=== PATIENT | male | born 1940 | race Caucasian/White ===

== ENCOUNTER → 2019-03-21 | Outpatient (CLI) | payer MEDICARE ==
--- NOTE | 2019-03-21 16:27 | CT ---
EXAMINATION TYPE: CT abdomen pelvis wo con DATE OF EXAM: 03/21/2019 HISTORY: abdominal pain not further specified. CT DLP: 499.1 mGycm. Automated Exposure Control for Dose Reduction was Utilized. TECHNIQUE: CT scan of the abdomen and pelvis is performed without oral or IV contrast. COMPARISON: NONE FINDINGS: Within the limitations of a non-contrast study, the following observations are made. LUNG BASES: Coronary artery calcification is present which is noted marker for underlying coronary ar kaleigh disease.. LIVER/GB: Liver is isodense relative to spleen suggesting mild diffuse fatty infiltration. PANCREAS: No significant abnormality is seen. SPLEEN: No significant abnormality is seen. ADRENALS: No significant abnormality is seen. KIDNEYS: Some cortical thinning in both kidneys. No renal stones or hydronephrosis is present bilater ally BOWEL: No suspicious small or large bowel dilatation. Scattered diverticula throughout the colon most prominent in the sigmoid colon without CT evidence for acute diverticulitis. Suspect large duodenal diverticulum near second portion of duodenum with prominent air-fluid level in contained air collecti on axial image 51. This can be confirmed with upper GI study. GENITAL ORGANS: Central region calcifications in normal size prostate. LYMPH NODES: No greater than 1cm abdominal or pelvic lymph nodes are appreciated. OSSEOUS STRUCTURES: Moderate to severe disc space narrowing and mild to moderate spurring L3-L4 throu gh the L5-S1 levels most prominent L4-L5 level where there is left-sided endplate sclerosis. Mild-to- moderate axial joint space loss both hips. OTHER: Moderate to severe calcified plaque distal abdominal aorta extending into iliac branch vessels . IMPRESSION: No acute findings seen to come for patient's symptoms. Probable large diverticulum second portion duodenum.
== END | disposition home or self-care (01) ==
LOC: RADCTMAIN 16:01
PROVIDERS: ATTEND Family Medicine
DX: R10.9 Unspecified abdominal pain (principal)
CPT/HCPCS: 74176

== ENCOUNTER → 2019-12-18 | Outpatient (CLI) | payer MEDICARE ==
--- NOTE | 2019-12-19 08:29 | CT ---
EXAMINATION TYPE: CT chest wo con DATE OF EXAM: 12/18/2019 COMPARISON: None HISTORY: cough, SOB CT DLP: 396.[address] of the chest was performed with lung and mediastinal window settings submitted. The la ck of contrast limits evaluation of the vascular, mediastinal and parenchymal structures including th e upper abdomen. LUNGS: Large left upper lobe airspace consolidation including involvement of the lingula which may re flect underlying infiltrate. Malignancy is not excluded. Follow-up until resolution is advised follow ing appropriate therapeutic intervention. Narrowing left upper lobe bronchus. There is left-sided ple ural effusion with maximal AP measurement of 3 cm. Right apical parenchymal scarring with focal calci fication. Upper lobe emphysematous changes. 4 mm nodule right lower lobe image 33. 3 mm nodule right upper lobe image 29. Several additional smaller sub-3 mm nodules right lung. MEDIASTINUM/MONA: Thoracic aorta is of normal caliber with limited evaluation given lack of contrast . The heart is not enlarged. No evidence for mediastinal mass. No lymph nodes greater than 1cm. UPPER ABDOMEN: Bilateral adrenal glandular thickening. Adenopathy in the region of the gastrohepatic ligament measuring 1.2 cm. Ill-defined lesions of decreased attenuation scattered throughout the live r felt to reflect metastatic disease. Hypoattenuating lesion left kidney may reflect a cyst. Addition al adenopathy in the region of the grabiel hepatis measuring up to 1 cm. OTHER: Mild left axillary lymph node fullness all measuring less than 1 cm may be reactive in nature. IMPRESSION: 1. Large left upper lobe airspace consolidation including involvement of the lingula which may refle ct underlying infiltrate. Malignancy is not excluded. Follow-up until resolution is advised following appropriate therapeutic intervention. 2. Nonspecific scattered pulmonary nodules. 3. Suspect metastatic disease to the liver. Upper abdominal adenopathy as discussed. Dedicated CT of the abdomen/pelvis is recommended.
== END | disposition home or self-care (01) ==
LOC: RADCTMAIN 14:50
PROVIDERS: ATTEND Family Medicine
DX: J94.8 Other specified pleural conditions (principal); R91.8 Other nonspecific abnormal finding of lung field
CPT/HCPCS: 36415; 71250; 82565; 84520

== ENCOUNTER → 2020-01-12 | Outpatient (CLI) | payer MEDICARE ==
--- NOTE | 2020-01-15 10:44 | PE ---
Nuclear medicine PET/CT HISTORY: Lung mass, initial Patient received 10.2 mCi F-18 intravenously in delayed scanning was performed from the skull base to the mid thighs. Localization and attenuation correction CT scan was performed. Correlation to chest CT 12/18/2019 Chest and neck: There is no evident cervical adenopathy. Left supraclavicular node SUV 2.8. Periphera l left upper lobe ill-defined increased attenuation, groundglass opacification measuring 3.7. There i s a left pleural effusion. Retrocaval pretracheal adenopathy is present. There is associated hypermet abolic uptake, SUV 4.3. Right hilar uptake also present, SUV 3.8, 5.6, left hilar trish uptake presen t, SUV 4.1. Intense uptake present peripherally in the lingula adjacent to the pericardium, SUV 7.6. There are likely postobstructive atelectatic changes. Interstitium is prominent in the left upper lob e and left lower lobe. Right axillary uptake 2.5 SUV, left axillary trish uptake SUV 3.1. Right thyro id nodule SUV 4.1. ABDOMEN: Multiple hyperintensities are scattered within the liver, SUV values 3.726, 7.4 and 12.8, gr eater than 10 lesions present. Bilateral adrenal masses show associated hypermetabolic uptake, SUV 7. 2 on the right, 5.1 there is some retroperitoneal adenopathy present with associated hypermetabolic u ptake. Soft tissue uptake in the posterior aspect of the left kidney also present, exophytic location , SUV 3.1. Bilateral external iliac adenopathy, SUV on the left 7.4, right inguinal uptake SUV 2.2, l eft inguinal uptake 7.2. Osseous structures are remarkable for hypermetabolic uptake posterior left ilium, SUV 13 and more ant eriorly SUV 4.0. IMPRESSION: Metastatic disease.
== END | disposition home or self-care (01) ==
LOC: RADPETMAIN 15:33
PROVIDERS: ATTEND Internal Medicine
DX: C79.9 Secondary malignant neoplasm of unspecified site (principal)
CPT/HCPCS: 78815; A9552

== ENCOUNTER 2020-01-22 12:24 | Inpatient (IN) | payer MEDICARE ==
[2020-01-22] MEDS ORDERED: SODIUM CHLORIDE 0.9% 1,000 ML IV STA ×2 (13:04→14:25)
[2020-01-22] MEDS ORDERED: SODIUM CHLORIDE 0.9% 500 ML 500 ML IV STA (13:04)
[2020-01-22 13:24] LABS: Basophils % (A) 0 %; Eosinophils # (A) 0.2 k/uL (0-0.7); Eosinophils % (A) 2 %; Lymphocytes # (A) 1.5 k/uL (1.0-4.8); Lymphocytes % (A) 11 %; MCHC 32.6 g/dL (31.0-37.0); MCV 88.8 fL (80.0-100.0); Mean Platelet Volume 7.8; Monocytes # (A) 0.9 k/uL (0-1.0); Monocytes % (A) 7 %; Neutrophils # (A) 10.6 k/uL (1.3-7.7); Neutrophils % (A) 78 %; Platelet Count 304 k/uL (150-450); RBC 4.84 m/uL (4.30-5.90); RDW 12.6 % (11.5-15.5); WBC 13.6 k/uL (3.8-10.6)
[2020-01-22 13:28] LABS: Partial Thromboplastin Time 24.9 sec (22.0-30.0); Prothrombin Time 10.4 sec (9.0-12.0)
[2020-01-22 13:33] LABS: Albumin 3.7 g/dL (3.5-5.0); Calcium 10.3 mg/dL (8.4-10.2); Magnesium 2.4 mg/dL (1.6-2.3); Total Bilirubin 0.8 mg/dL (0.2-1.3); Total Protein 6.7 g/dL (6.3-8.2)
--- NOTE | 2020-01-22 13:35 | XR ---
EXAMINATION TYPE: XR chest 2V DATE OF EXAM: 01/22/2020 COMPARISON: 09/10/2015 INDICATION: Difficulty in breathing TECHNIQUE: Frontal and lateral views of the chest are obtained. FINDINGS: The heart size is normal. The pulmonary vasculature is normal. Left lower lobe consolidation is present. Correlate for pneumonia. Very minimal increased lung markin gs are at the right lower lung field. IMPRESSION: 1. Left lower lobe infiltrate. Correlate for pneumonia. Follow-up is recommended.
[2020-01-22 13:49] LABS: Potassium 6.2 mmol/L (3.5-5.1)
--- NOTE | 2020-01-22 13:53 | ED ---
SOB HPI - General Chief Complaint: Shortness of Breath Stated Complaint: pneumonia Time Seen by Provider: 01/22/20 12:54 Source: patient, family, RN notes reviewed Mode of arrival: wheelchair Limitations: no limitations - History of Present Illness Initial Comments: This is a 79-year-old male was brought in by his family for complaints of shortness of breath decreased appetite weakness, past 4-5 days not been taking his medication for over a week no overt fevers chills sweats or other symptoms no chest pain reported. Family states is not thriving well MD Complaint: shortness of breath - Related Data Home Medications Medication Instructions Recorded Confirmed Aspirin 325 mg PO HS 01/16/20 01/22/20 Atorvastatin [Lipitor] 20 mg PO HS 01/16/20 01/22/20 Cholecalciferol [Vitamin D3 (25 1,000 unit PO HS 01/16/20 01/22/20 Mcg = 1000 Iu)] Fenofibrate Nanocrystallized 160 mg PO DAILY 01/16/20 01/22/20 [Tricor] Finasteride [Proscar] 5 mg PO DAILY 01/16/20 01/22/20 Lisinopril-Hctz 20-12.5 mg 1 tab PO QAM 01/16/20 01/22/20 [Zestoretic 20-12.5] Magnesium 250 mg PO HS 01/16/20 01/22/20 Melatonin 5 mg PO HS 01/16/20 01/22/20 amLODIPine [Norvasc] 5 mg PO QAM 01/16/20 01/22/20 Dorzolamide HCl/Pf [Dorzolamide 2% 1 drop LEFT EYE BID 01/21/20 01/22/20 Eye Drop] Ibuprofen/Diphenhydramine HCl 1 cap PO HS 01/21/20 01/22/20 [Advil Pm Liqui-Gels] Brimonidine Tartrate [Alphagan P 1 drops LEFT EYE BID 01/22/20 01/22/20 0.2% Ophth Soln] Latanoprost [Xalatan 0.005%] 1 drop LEFT EYE HS 01/22/20 01/22/20 Multivitamins, Thera [Multivitamin 1 tab PO DAILY 01/22/20 01/22/20 (formulary)] Allergies Allergy/AdvReac Type Severity Reaction Status Date / Time No Known Allergies Allergy Verified 01/22/20 14:24 Review of Systems ROS Statement: Those systems with pertinent positive or pertinent negative responses have been documented in the HPI. ROS Other: All systems not noted in ROS Statement are negative. Past Medical History Past Medical History: Cancer, COPD, Eye Disorder, Hyperlipidemia, Liver Disease, Pneumonia Additional Past Medical History / Comment(s): bladder CA 2010, liver mass and lung nodule History of Any Multi-Drug Resistant Organisms: None Reported Past Surgical History: No Surgical Hx Reported Smoking Status: Former smoker Past Alcohol Use History: None Reported Past Drug Use History: None Reported General Exam - General Exam Comments Initial Comments: This is a well-developed sec appearing male who is awake alert though somewhat lethargic Limitations: no limitations General appearance: alert, in no apparent distress Head exam: Present: atraumatic, normocephalic, normal inspection Eye exam: Present: normal appearance, PERRL, EOMI. Absent: scleral icterus, conjunctival injection, periorbital swelling ENT exam: Present: mucous membranes dry Neck exam: Present: normal inspection. Absent: tenderness, meningismus, lymphadenopathy Respiratory exam: Present: normal lung sounds bilaterally. Absent: respiratory distress, wheezes, rales, rhonchi, stridor Cardiovascular Exam: Present: regular rate, normal rhythm, normal heart sounds. Absent: systolic murmur, diastolic murmur, rubs, gallop, clicks GI/Abdominal exam: Present: soft, normal bowel sounds. Absent: distended, tenderness, guarding, rebound, rigid Extremities exam: Present: normal inspection, full ROM, normal capillary refill. Absent: tenderness, pedal edema, joint swelling, calf tenderness Back exam: Present: normal inspection Neurological exam: Present: alert, oriented X3, CN II-XII intact Psychiatric exam: Present: normal affect, normal mood Skin exam: Present: warm, dry, intact, normal color. Absent: rash Course Vital Signs 01/22/20 01/22/20 01/22/20 12:26 13:11 13:28 Temperature 97.4 F L Pulse Rate 97 94 Respiratory 16 16 16 Rate Blood Pressure 85/59 93/62 O2 Sat by Pulse 93 L 98 Oximetry 01/22/20 01/22/20 13:53 14:28 Temperature Pulse Rate 86 98 Respiratory 16 16 Rate Blood Pressure 101/61 115/74 O2 Sat by Pulse 99 95 Oximetry Medical Decision Making - Medical Decision Making Patient does demonstrate evidence of dehydration acute kidney injury dehydration left lower lobe pneumonia as well as hyperkalemia patient will be admitted for treatment of the above I did discuss the case with Dr. Cunningham additionally COPD is present - Lab Data Result diagrams: 01/22/20 12:53 01/22/20 12:53 Lab Results 01/22/20 01/22/20 01/22/20 Range/Units 12:53 12:53 12:53 WBC 13.6 H (3.8-10.6) k/uL RBC 4.84 (4.30-5.90) m/uL Hgb 14.0 (13.0-17.5) gm/dL Hct 43.0 (39.0-53.0) % MCV 88.8 (80.0-100.0) fL MCH 29.0 (25.0-35.0) pg MCHC 32.6 (31.0-37.0) g/dL RDW 12.6 (11.5-15.5) % Plt Count 304 (150-450) k/uL Neutrophils % 78 % Lymphocytes % 11 % Monocytes % 7 % Eosinophils % 2 % Basophils % 0 % Neutrophils # 10.6 H (1.3-7.7) k/uL Lymphocytes # 1.5 (1.0-4.8) k/uL Monocytes # 0.9 (0-1.0) k/uL Eosinophils # 0.2 (0-0.7) k/uL Basophils # 0.0 (0-0.2) k/uL PT 10.4 (9.0-12.0) sec INR 1.0 (<1.2) APTT 24.9 (22.0-30.0) sec Sodium 134 L (137-145) mmol/L Potassium 6.2 H* (3.5-5.1) mmol/L Chloride 101 (98-107) mmol/L Carbon Dioxide 22 (22-30) mmol/L Anion Gap 11 mmol/L BUN 84 H (9-20) mg/dL Creatinine 4.53 H (0.66-1.25) mg/dL Est GFR (CKD-EPI)AfAm 13 (>60 ml/min/1.73 sqM) Est GFR (CKD-EPI)NonAf 12 (>60 ml/min/1.73 sqM) Glucose 99 (74-99) mg/dL Plasma Lactic Acid Romeo (0.7-2.0) mmol/L Calcium 10.3 H (8.4-10.2) mg/dL Magnesium 2.4 H (1.6-2.3) mg/dL Total Bilirubin 0.8 (0.2-1.3) mg/dL AST 65 H (17-59) U/L ALT 27 (4-49) U/L Alkaline Phosphatase 134 H (38-126) U/L Troponin I (0.000-0.034) ng/mL NT-Pro-B Natriuret Pep pg/mL Total Protein 6.7 (6.3-8.2) g/dL Albumin 3.7 (3.5-5.0) g/dL 01/22/20 01/22/20 01/22/20 Range/Units 12:53 12:53 12:53 WBC (3.8-10.6) k/uL RBC (4.30-5.90) m/uL Hgb (13.0-17.5) gm/dL Hct (39.0-53.0) % MCV (80.0-100.0) fL MCH (25.0-35.0) pg MCHC (31.0-37.0) g/dL RDW (11.5-15.5) % Plt Count (150-450) k/uL Neutrophils % % Lymphocytes % % Monocytes % % Eosinophils % % Basophils % % Neutrophils # (1.3-7.7) k/uL Lymphocytes # (1.0-4.8) k/uL Monocytes # (0-1.0) k/uL Eosinophils # (0-0.7) k/uL Basophils # (0-0.2) k/uL PT (9.0-12.0) sec INR (<1.2) APTT (22.0-30.0) sec Sodium (137-145) mmol/L Potassium (3.5-5.1) mmol/L Chloride (98-107) mmol/L Carbon Dioxide (22-30) mmol/L Anion Gap mmol/L BUN (9-20) mg/dL Creatinine (0.66-1.25) mg/dL Est GFR (CKD-EPI)AfAm (>60 ml/min/1.73 sqM) Est GFR (CKD-EPI)NonAf (>60 ml/min/1.73 sqM) Glucose (74-99) mg/dL Plasma Lactic Acid Romeo 1.4 (0.7-2.0) mmol/L Calcium (8.4-10.2) mg/dL Magnesium (1.6-2.3) mg/dL Total Bilirubin (0.2-1.3) mg/dL AST (17-59) U/L ALT (4-49) U/L Alkaline Phosphatase (38-126) U/L Troponin I 0.013 (0.000-0.034) ng/mL NT-Pro-B Natriuret Pep 138 pg/mL Total Protein (6.3-8.2) g/dL Albumin (3.5-5.0) g/dL - EKG Data -: EKG Interpreted by Me EKG shows normal: sinus rhythm (Sinus rhythm with 95. Interval 172 QRS 86 QT since QTC 326/409 right word axis no acute ST-T wave changes) - Radiology Data Radiology results: report reviewed (I did review the imaging and report shows evidence of a left lower lobe infiltrate.), image reviewed Critical Care Time Critical Care Time: Yes Total Critical Care Time: 35 Critical Care Time: 35 minutes of critical care time which included initial presentation with history physical labs x-rays several reevaluation the patient. Discussed with patient family regarding findings review of old charting was available discussed with the main physician admission orders and documentation of the above. Disposition Clinical Impression: Left lower lobe pneumonia, Acute kidney injury, Dehydration, Hyperkalemia, COPD with exacerbation Disposition: ADMITTED IP TO THIS HOSP Condition: Fair Referrals: Epifanio Watt MD [Primary Care Provider] - 1-2 days
[2020-01-22] MEDS ORDERED: cefTRIAXone IN SWFI 1,000 MG/10 ML SYRINGE IVP STA (15:53)
[2020-01-22] MEDS ORDERED: AZITHROMYCIN 500 MG in SODIUM CHLORIDE 0.9% 250 ML IVPB STA (16:08)
[2020-01-22] MEDS ORDERED: PNEUMONIA PROTOCOL UTILIZED 1 EACH MISC PO PRN (16:08)
[2020-01-22] MEDS: SODIUM CHLORIDE 0.9% 1,000 ML IV SCH (16:37)
[2020-01-22] MEDS ORDERED: IPRATROPIUM-ALBUTEROL 3 ML NEB INHALATION SCH (20:00)
[2020-01-22] MEDS: CHOLECALCIFEROL 1,000 UNIT TAB PO SCH (20:07)
[2020-01-22] MEDS: DORZOLAMIDE HCL 2% DROPS 10 ML BTL LEFT EYE SCH (20:07)
[2020-01-22] MEDS: ATORVASTATIN 20 MG TAB PO SCH (20:07)
[2020-01-22] MEDS: ASPIRIN 325 MG TAB PO SCH (20:07)
[2020-01-22] MEDS: MAGNESIUM OXIDE 400 MG TAB PO SCH (20:07)
[2020-01-22] MEDS: MELATONIN 5 MG TABLET PO SCH (20:07)
[2020-01-22] MEDS: LATANOPROST 0.005% OPHTH DROPS 2.5 ML BTL LEFT EYE SCH (20:07)
[2020-01-22] MEDS: BRIMONIDINE TARTRATE 0.2% DROPS 5 ML BTL LEFT EYE SCH (20:07)
--- NOTE | 2020-01-23 08:35 | XR ---
EXAMINATION TYPE: XR chest 2V DATE OF EXAM: 01/23/2020 COMPARISON: Chest x-ray yesterday. CT chest December 18, 2019. PET CT January 12, 2020. HISTORY: History of metastatic disease with pneumonia progress study. TECHNIQUE: Frontal and lateral views of the chest are obtained. FINDINGS: There is bilateral chronic emphysematous change with persistent elevated left hemidiaphragm along with left mid to lower lung opacity silhouetting left heart border and hemidiaphragm. Some lef t-sided volume loss is redemonstrated. Masslike consolidation along the fissure again seen best on la teral view. Metallic foreign body towards the left axilla redemonstrated less well seen on recent CT. Osseous structures are intact. IMPRESSION: Persistent background chronic emphysematous change with probable small left pleural effu kristie and fairly diffuse left lung edema and/or infiltrates with relative sparing left upper lung angélica g with underlying neoplasm and left-sided volume loss. No significant change from most recent x-ray.
[2020-01-23] MEDS: IPRATROPIUM-ALBUTEROL 3 ML NEB INHALATION SCH ×3 (09:01→20:07)
[2020-01-23] MEDS: FENOFIBRATE 160 MG TAB PO SCH (09:02)
[2020-01-23] MEDS: FINASTERIDE 5 MG TAB PO SCH (09:02)
[2020-01-23] MEDS: amLODIPine 5 MG TAB PO SCH (09:02)
[2020-01-23] MEDS: MULTIVITAMINS, THERA 1 EACH TAB PO SCH (09:02)
[2020-01-23] MEDS: SODIUM CHLORIDE 0.9% 1,000 ML IV SCH ×3 (09:03→19:17)
[2020-01-23] MEDS: DORZOLAMIDE HCL 2% DROPS 10 ML BTL LEFT EYE SCH ×2 (09:05→20:14)
[2020-01-23] MEDS: BRIMONIDINE TARTRATE 0.2% DROPS 5 ML BTL LEFT EYE SCH ×2 (09:05→20:14)
--- NOTE | 2020-01-23 12:18 | CONS ---
CONSULTATION PULMONARY/CRITICAL CARE CONSULTATION: DATE OF SERVICE: 01/23/2020 REASON FOR CONSULTATION: Shortness of breath. This is a patient who is a very poor historian. He is 79. He apparently was brought in by his family for shortness of breath, decreased appetite, weakness, not taking his medications for four to five days prior to coming in to the hospital. The patient apparently did not have any fever, chills, sweats, or other complaints. There was no chest pain. Apparently his major issue is cough and shortness of breath. Again, he is a very poor historian. When I ask him about phlegm production, he really cannot remember if he was coughing up any phlegm or not. He apparently had a chest x-ray, which showed a pretty extensive pneumonia of the left lung base. That is the reason for being admitted. Again, it is very difficult to get any history from him. HOME MEDICATIONS: His home medications apparently include aspirin, Lipitor, vitamin D3, TriCor, Proscar, Zestoretic, magnesium, melatonin, amlodipine, eye drops, ibuprofen, diphenhydramine hydrochloride Liqui-Gels, and multiple vitamins. ALLERGIES: Denied. PAST MEDICAL HISTORY: Includes bladder cancer in 2010, COPD from previous tobacco use, hyperlipidemia, pneumonia, possibly liver mass. PAST SURGICAL HISTORY: Apparently negative. SOCIAL HISTORY: Positive for previous tobacco use. No history of alcohol use or illicit drug use. FAMILY HISTORY: Could not get family history from the patient. REVIEW OF SYSTEMS: Very unreliable. CONSTITUTIONAL: Negative. NEUROLOGIC: Negative. HEENT: Negative. CARDIOVASCULAR: Negative. PULMONARY: Cough and shortness of breath. GI: Negative. : Negative. RHEUMATOLOGIC: Negative. IMMUNOLOGIC: Negative. ENDOCRINOLOGIC: Negative. DERMATOLOGIC: Negative. PHYSICAL EXAMINATION: VITAL SIGNS: Current vital signs are reviewed. Temperature is 97.3, heart rate 88, respiratory rate 19, blood pressure 116/69, saturations are 96% on 3 liters. He appears in no acute distress. He does move very slowly. He does not appear to have any distress. There is no audible wheezing, use of accessory muscles, or conversational dyspnea. Not a good historian though. HEENT: Examination is grossly unremarkable. Nasal O2 noted. NECK: Supple. Full range of motion. No adenopathy or thyromegaly. Neck veins are flat. CARDIOVASCULAR: Reveals regular rhythm and rate. Heart rate 88 beats per minute. S1 and S2 normal. Heart sounds are distant. LUNGS: Reveal a few scattered rhonchi. Breath sounds are mostly clear. No wheezes. Few scattered bibasilar crackles. ABDOMEN: Soft. Bowel sounds are heard. EXTREMITIES: Intact. Minimal edema. SKIN: Without rash. NEUROLOGIC: Difficult to assess. The patient is a very poor historian. LABS: Lab data is reviewed. White count 13.6, hemoglobin 14, hematocrit 43.0, platelet count 304,000. PT, INR, and PTT normal. Sodium 134, potassium 6.2, chloride is 101, CO2 22, BUN and creatine were 84 and 4.53. Calcium 10.3, magnesium 2.4. AST 65, alkaline phosphatase 137. N-terminal proBNP is 138. Troponin is 0.013. Microbiology data is negative or pending. A chest x-ray on January 21, which is the day of admission, shows a left lower lobe infiltrate. A followup chest x-ray done this morning on January 22 shows persistent background chronic emphysematous changes with small left pleural effusion and diffuse left lung edema and/or infiltrate. The chest x-ray is similar to the prior chest x-ray showing left lower lobe pneumonia. Medications are reviewed. From the pulmonary standpoint, he is on Zithromax, and ceftriaxone. This is appropriate for community-acquired pneumonia. He is currently on updrafts, vitamins, and the rest of his usual medications. ASSESSMENT: 1. Left lower lobe pneumonia. 2. Chronic obstructive pulmonary disease, with mild chronic obstructive pulmonary disease exacerbation complicated by left lower lobe pneumonia. 3. Prior history of tobacco use. 4. History of hyperlipidemia. 5. History of hypertension. 6. History of bladder cancer, 2010. 7. Prior history of pneumonia. PLAN: The patient is on appropriate antibiotics including Zithromax and Rocephin. I will start him on DuoNeb q.i.d. and p.r.n. Additional recommendations and suggestions are forthcoming. I do not believe he needs any corticosteroids at this time. We will continue to follow closely. We will make additional recommendations where appropriate. Prognosis is guarded. MMODL / IJN: [id number] /
[2020-01-23 12:45] LABS: Calcium 9.5 mg/dL (8.4-10.2); Potassium 5.6 mmol/L (3.5-5.1)
--- NOTE | 2020-01-23 13:14 | P.HPIM ---
History of Present Illness H&P Date: 01/23/20 Chief Complaint: Short of breath History of presenting complaint: This is a pleasant 79-year-old patient of Dr. gonzalez. Chronic stable medical conditions include hyperlipidemia, bladder cancer. Also recently reported of a liver mass and lung nodule. Patient presented to ER with increasing short of breath. Not eating drinking much. Did not take his medications for about a week. Himself the patient other times not able to give much of a history. Patient is reportedly ex-smoker. Rather lethargic and drowsy but able to answer some questions. No family the bedside. Review of systems: GEN.: Tired EYES: None HEENT: None NECK: None RESPIRATORY: Congested cough CARDIOVASCULAR: None GASTROINTESTINAL: None GENITOURINARY: None MUSCULOSKELETAL: Some joint pains LYMPHATICS: None HEMATOLOGICAL: None PSYCHIATRY: None NEUROLOGICAL: Lethargic Past medical history to include: COPD, hyperlipidemia, bladder cancer 2010, liver mass lung nodule Social history: Lives with his . Does use a cane. Patient is at [facility]. No obvious reported history of smoking or alcohol. Family history: Patient does not remember Physical examination: VITAL SIGNS: 97.4, 97, 16, 85/59, 93% on room air GENERAL: BMI 23.3, laying in bed and lethargic but arousable. EYES: Pupils equal. Conjunctiva normal. HEENT: External appearance of nose and ears normal, oral cavity grossly normal. NECK: JVD unable to assess; masses not palpable. HEART: First and second heart sounds are normal; no edema. LUNGS: Respiratory rate increased, decreased breaths on some crackles. ABDOMEN: Soft, nontender, liver spleen not palpable, no masses palpable. PSYCH: Lethargic but arousable was able to answer some questionsl. NEUROLOGICAL: [Cranial nerves grossly intact; no facial asymmetry, moving all 4 limbs LYMPHATICS: No lymph nodes palpable in the axilla and neck INVESTIGATIONS, reviewed in the clinical context: White count 13.6 hemoglobin 14 platelets 304 potassium 6.2 bun 84 creatinine 4.53 calcium 10.3 Patient's creatinine was 2 on December 18 and 2.6 on December 14 EKG tracing personally reviewed by me-normal sinus rhythm Chest x-ray film personally reviewed by me--shows left upper lobe consolidation and also fluid in the fissure and venous prominence. Assessment: -Left upper lobe lobar pneumonia, suspect gram-negative organism -Acute metabolic encephalopathy from pneumonia -Chronic kidney disease with a baseline creatinine of 2-2.6 that is stage 3/4 -Acute kidney injury likely ATN from pneumonia, patient is also on lisinopril anika lethargic. -Hyperkalemia in the setting of acute renal failure -BPH -Hyperlipidemia -Essential hypertension Plan: Patient is on IV saline. Zestoretic was held. Also placed on IV ceftriaxone and Zithromax. Bronchodilators. Lovenox for DVT prophylaxis. Fall precautions. Expect patient to be in the hospital for at least 2 nights. Follow labs. - Past Medical History Past Medical History: Cancer, COPD, Eye Disorder, Hyperlipidemia, Liver Disease, Pneumonia Additional Past Medical History / Comment(s): bladder CA 2010, liver mass and lung nodule}new in work up History of Any Multi-Drug Resistant Organisms: None Reported Past Surgical History: No Surgical Hx Reported Past Anesthesia/Blood Transfusion Reactions: No Reported Reaction Additional Past Anesthesia/Blood Transfusion Reaction / Comment(s): unknown Past Psychological History: No Psychological Hx Reported Smoking Status: Former smoker Past Alcohol Use History: None Reported Additional Past Alcohol Use History / Comment(s): since age 20 Past Drug Use History: None Reported Medications and Allergies Home Medications Medication Instructions Recorded Confirmed Type Aspirin 325 mg PO HS 01/16/20 01/22/20 History Atorvastatin [Lipitor] 20 mg PO HS 01/16/20 01/22/20 History Cholecalciferol [Vitamin D3 (25 1,000 unit PO HS 01/16/20 01/22/20 History Mcg = 1000 Iu)] Fenofibrate Nanocrystallized 160 mg PO DAILY 01/16/20 01/22/20 History [Tricor] Finasteride [Proscar] 5 mg PO DAILY 01/16/20 01/22/20 History Lisinopril-Hctz 20-12.5 mg 1 tab PO QAM 01/16/20 01/22/20 History [Zestoretic 20-12.5] Magnesium 250 mg PO HS 01/16/20 01/22/20 History Melatonin 5 mg PO HS 01/16/20 01/22/20 History amLODIPine [Norvasc] 5 mg PO QAM 01/16/20 01/22/20 History Dorzolamide HCl/Pf [Dorzolamide 2% 1 drop LEFT EYE BID 01/21/20 01/22/20 History Eye Drop] Ibuprofen/Diphenhydramine HCl 1 cap PO HS 01/21/20 01/22/20 History [Advil Pm Liqui-Gels] Brimonidine Tartrate [Alphagan P 1 drops LEFT EYE BID 01/22/20 01/22/20 History 0.2% Ophth Soln] Latanoprost [Xalatan 0.005%] 1 drop LEFT EYE HS 01/22/20 01/22/20 History Multivitamins, Thera [Multivitamin 1 tab PO DAILY 01/22/20 01/22/20 History (formulary)] Allergies Allergy/AdvReac Type Severity Reaction Status Date / Time No Known Allergies Allergy Verified 01/22/20 14:24 Physical Exam Vitals: Vital Signs Temp Pulse Pulse Resp BP BP Pulse Ox 01/23/20 09:12 88 01/23/20 09:02 88 01/23/20 07:14 97.3 F L 106 H 19 116/69 01/23/20 05:00 97.9 F 94 19 129/82 96 01/22/20 20:54 98 01/22/20 20:50 95 01/22/20 20:41 98 F 95 19 103/67 95 01/22/20 17:22 98.1 F 90 18 121/73 91 L 01/22/20 16:33 97 16 111/72 98 01/22/20 14:28 98 16 115/74 95 01/22/20 13:53 86 16 101/61 99 01/22/20 13:28 16 01/22/20 13:11 94 16 93/62 98 01/22/20 12:26 97.4 F L 97 16 85/59 93 L Intake and Output 01/22/20 01/23/20 01/23/20 22:59 06:59 14:59 Intake Total 400 800 Balance 400 800 Intake: Intake, IV Titration 400 800 Amount Sodium Chloride 0.9% 1, 400 800 000 ml @ 100 mls/hr IV . Q10H [facility] Rx#:[id number] Other: Voiding Method Toilet Toilet Toilet Bedside Commode Bedside Commode # Voids 1 5 Weight 71.5 kg Results CBC & Chem 7: 01/22/20 12:53 01/23/20 12:01 Labs: Abnormal Lab Results - Last 24 Hours (Table) 01/22/20 01/22/20 Range/Units 12:53 12:53 WBC 13.6 H (3.8-10.6) k/uL Neutrophils # 10.6 H (1.3-7.7) k/uL Sodium 134 L (137-145) mmol/L Potassium 6.2 H* (3.5-5.1) mmol/L BUN 84 H (9-20) mg/dL Creatinine 4.53 H (0.66-1.25) mg/dL Calcium 10.3 H (8.4-10.2) mg/dL Magnesium 2.4 H (1.6-2.3) mg/dL AST 65 H (17-59) U/L Alkaline Phosphatase 134 H (38-126) U/L Thrombosis Risk Factor Assmnt - Choose All That Apply Any of the Below Risk Factors Present?: Yes Each Factor Represents 1 point: Serious lung disease incl. pneumonia (< 1month) Other Risk Factors: Yes Each Risk Factor Represents 3 Points: Age 75 years or older Other congenital or acquired thrombophilia - If yes, enter type in comment: No Thrombosis Risk Factor Assessment Total Risk Factor Score: 4 Thrombosis Risk Factor Assessment Level: Moderate Risk
[2020-01-23] MEDS ORDERED: AZITHROMYCIN 500 MG TAB PO SCH (17:00)
[2020-01-23] MEDS: ASPIRIN 325 MG TAB PO SCH (20:11)
[2020-01-23] MEDS: CHOLECALCIFEROL 1,000 UNIT TAB PO SCH (20:14)
[2020-01-23] MEDS: MAGNESIUM OXIDE 400 MG TAB PO SCH (20:14)
[2020-01-23] MEDS: ATORVASTATIN 20 MG TAB PO SCH (20:14)
[2020-01-23] MEDS: LATANOPROST 0.005% OPHTH DROPS 2.5 ML BTL LEFT EYE SCH (20:14)
[2020-01-23] MEDS: MELATONIN 5 MG TABLET PO SCH (20:14)
[2020-01-23] MEDS: IPRATROPIUM-ALBUTEROL 3 ML NEB INHALATION PRN (23:38)
[2020-01-24 04:26] LABS: Appearance,Urine Clear (Clear); Bacteria,Urine Rare /hpf; Bilirubin,Urine Negative (Negative); Blood,Urine Moderate (Negative); Color,Urine Yellow; Glucose,Urine (UA) Negative (Negative); Hyaline Casts,Urine 4 /lpf (0-2); Ketones,Urine Negative (Negative); Leukocyte Esterase,Urine Moderate (Negative); Mucus,Urine Rare /hpf; Nitrite,Urine Negative (Negative); Protein,Urine Negative (Negative); RBC,Urine >182 /hpf (0-5); Specific Gravity,Urine 1.011 (1.001-1.035); Squamous Epithelial Cell,Urine 1 /hpf (0-4); Urobilinogen,Urine <2.0 mg/dL (<2.0); WBC,Urine 17 /hpf (0-5)
[2020-01-24] MEDS: IPRATROPIUM-ALBUTEROL 3 ML NEB INHALATION SCH ×3 (08:25→20:38)
[2020-01-24] MEDS: DORZOLAMIDE HCL 2% DROPS 10 ML BTL LEFT EYE SCH ×2 (09:39→21:01)
[2020-01-24] MEDS: FENOFIBRATE 160 MG TAB PO SCH (09:40)
[2020-01-24] MEDS: amLODIPine 5 MG TAB PO SCH (09:40)
[2020-01-24] MEDS: MULTIVITAMINS, THERA 1 EACH TAB PO SCH (09:40)
[2020-01-24] MEDS: FINASTERIDE 5 MG TAB PO SCH (09:40)
[2020-01-24] MEDS: BRIMONIDINE TARTRATE 0.2% DROPS 5 ML BTL LEFT EYE SCH ×2 (09:40→21:01)
[2020-01-24] MEDS: SODIUM CHLORIDE 0.9% 1,000 ML IV SCH (10:23)
[2020-01-24] MEDS: TAMSULOSIN 0.4 MG CAP.ER.24H PO SCH (10:34)
--- NOTE | 2020-01-24 16:40 | P.PN ---
Subjective Progress Note Date: 01/24/20 This is a 79-year-old white male, [id number] smoker, quit smoking in 2000. Patient was recently seen by his primary care physician and he was complaining of cough and congestion. He was also complaining of some shortness of breath, fatigue, malaise, he had no symptoms of weight loss. No symptoms of hemoptysis, and no chest pain. Chest x-ray in the office was suggestive of pneumonia involving the lingula, however it was extensive and a CT of the chest was ordered. His CT of the chest Showed significant abnormality in the lingula, suggestive of possible malignancy and postobstructive pneumonitis. Also showed small left pleural effusion, and opacities on the liver suspicious for metastatic disease involving the liver. Patient has mostly chest congestion, voice hoarseness, denies any weight loss, denies any hemoptysis, denies any chest pain, denies any nausea vomiting or abdominal pain. Past medical history is significant for hypercholesterolemia, vitamin D deficiency, coronary arteriosclerosis, benign essential hypertension, COPD, esophageal stricture, bladder cancer in situ treated. PFT showed FEV1 of 42%.Patient is also on updrafts. According to the patient is feeling a bit better, breathing easier. And a follow-up chest x-ray was ordered to be done today. As part of further workup, a PET scan was done that showed a consolidating mass in the left upper lobe measuring 3.7 cm in addition to increased metabolic activity within the axillary areas, hilar areas and multiple hepatic lesions consistent with hepatic metastases. Overall picture is very much consistent with metastatic carcinoma probably of a lung primary. For now, the patient is hoarse. The patient is bronchospastic. The patient is wheezy. The patient shortness of breath. He was being planned that the patient was supposed to have a outpatient fine-needle aspirate of the liver lesion however this did not get done. Currently the patient is being treated as a routine community-acquired pneumonia with a combination of Rocephin and Zithromax. He is a poor historian. He is quite lethargic also. Objective - Vital Signs Vital signs: Vital Signs Temp 97.7 F 01/24/20 11:52 Pulse 98 01/24/20 12:33 Resp 24 01/24/20 12:23 BP 128/81 01/24/20 11:52 Pulse Ox 95 01/24/20 15:40 Intake & Output 01/23/20 01/24/20 01/24/20 18:59 06:59 18:59 Intake Total 800 400 Output Total 400 Balance 800 -400 400 Weight 71.5 kg Intake: Intake, IV Titration 800 Amount Sodium Chloride 0.9% 1, 800 000 ml @ 100 mls/hr IV . Q10H [facility] Rx#:[id number] Oral 400 Output: Urine 400 Straight 400 Other: Voiding Method Toilet Bedside Commode Bedside Commode Bedside Commode # Voids 6 4 3 # Bowel Movements 1 - Exam GENERAL: BMI 23.3, laying in bed and lethargic but arousable. EYES: Pupils equal. Conjunctiva normal. HEENT: External appearance of nose and ears normal, oral cavity grossly normal. NECK: JVD unable to assess; masses not palpable. HEART: First and second heart sounds are normal; no edema. LUNGS: Respiratory rate increased, decreased breaths on some crackles. The patient has diminished breath sounds and the patient actively bronchospastic and wheezy with diffuse expiratory wheezes throughout the lung nair bilaterally. ABDOMEN: Soft, nontender, liver spleen not palpable, no masses palpable. PSYCH: Lethargic but arousable was able to answer some questionsl. NEUROLOGICAL: [Cranial nerves grossly intact; no facial asymmetry, moving all 4 limbs LYMPHATICS: No lymph nodes palpable in the axilla and neck - Labs CBC & Chem 7: 01/22/20 12:53 01/23/20 12:01 Labs: Abnormal Lab Results - Last 24 Hours (Table) 01/24/20 Range/Units 04:13 Urine Blood Moderate H (Negative) Ur Leukocyte Esterase Moderate H (Negative) Urine RBC >182 H (0-5) /hpf Urine WBC 17 H (0-5) /hpf Urine Bacteria Rare H (None) /hpf Hyaline Casts 4 H (0-2) /lpf Urine Mucus Rare H (None) /hpf Microbiology - Last 24 Hours (Table) 01/24/20 04:13 Urine Culture - Preliminary Urine,Voided 01/22/20 16:37 Blood Culture - Preliminary Blood No Growth after 24 hours Assessment and Plan Plan: 1 left upper lobe consolidating lung mass, measuring 3.7 cm along with hilar lymphadenopathy, abdominal lymphadenopathy, metastatic liver lesions in addition to axillary lymphadenopathy and the picture is highly suspicious for primary bronchogenic carcinoma. 2 acute COPD exacerbation with secondary shortness of breath, consider left lower lobe pneumonia. The patient also has a left-sided pleural effusion that was noted on previous CAT scan and PET scan imaging. 3 severe chronic obstructive pulmonary disease, with a possibility of a postobstructive pneumonia 4 carcinoma of urinary bladder, superficial 5 coronary arteriosclerosis 6 essential hypertension 7 glaucoma 8 hyperlipidemia 9 pure hypercholesterolemia 10 stricture of esophagus 11 hoarseness secondary to possible vocal cord paralysis Plan This is a very ill 79-year-old male patient has likely metastatic carcinoma lung primary. The findings on the CAT scan was noted. The findings on the PET scan was noted. The patient will need a diagnostic procedure. Bronchoscopy may be done if the patient's overall pulmonary status improves. I'm going to put the patient IV Zosyn. Continue Rocephin and Zithromax. I'm going to put the patient IV Solu-Medrol admission to DuoNeb neb regimen some the clock. We are going to monitor the progress. Consider bronchoscopy within next 24-48 hours if her condition improves. Alternatively, we can do a fine-needle aspirate of the liver lesions if interventional radiology is capable of doing this procedure with good healed. We'll continue to follow. Prognosis extremely poor.
--- NOTE | 2020-01-24 17:34 | P.PN ---
Progress Note - Text Progress Note Date: 01/24/20 Chief Complaint: Short of breath History of presenting complaint: This is a pleasant 79-year-old patient of Dr. gonzalez. Chronic stable medical conditions include hyperlipidemia, bladder cancer. Also recently reported of a liver mass and lung nodule. Patient presented to ER with increasing short of breath. Not eating drinking much. Did not take his medications for about a week. Himself the patient other times not able to give much of a history. Patient is reportedly ex-smoker. Rather lethargic and drowsy but able to answer some questions. No family the bedside. Admitted with possible obstructive pneumonia, metabolic encephalopathy, acute kidney injury. Today-Dr. Arroyo from pulmonary reviewed the CAT scan of the chest. Likely malignancy. Patient remains tired. 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 Laying in bed. Review of systems: Difficult because patient is tired Active Medications Albuterol/Ipratropium (Duoneb 0.5 Mg-3 Mg/3 Ml Soln) 3 ml INHALATION RT-TID [facility] Last Admin: 01/24/20 12:23 Dose: 3 ml Documented by: Albuterol/Ipratropium (Duoneb 0.5 Mg-3 Mg/3 Ml Soln) 3 ml INHALATION RT-Q2H PRN PRN Reason: Shortness Of Breath Or Wheezing Last Admin: 01/23/20 23:38 Dose: 3 ml Documented by: Amlodipine Besylate (Norvasc) 5 mg PO QAM [facility] Last Admin: 01/24/20 09:40 Dose: 5 mg Documented by: Aspirin (Aspirin) 325 mg PO [facility] Last Admin: 01/23/20 20:11 Dose: Not Given Documented by: Atorvastatin Calcium (Lipitor) 20 mg PO [facility] Last Admin: 01/23/20 20:14 Dose: 20 mg Documented by: Brimonidine Tartrate (Alphagan P 0.2% Ophth Soln) 1 drops LEFT EYE BID [facility] Last Admin: 01/24/20 09:40 Dose: 1 drops Documented by: Cholecalciferol (Vitamin D3 (25 Mcg = 1000 Iu)) 1,000 unit PO [facility] Last Admin: 01/23/20 20:14 Dose: 1,000 unit Documented by: Dorzolamide HCl (Trusopt) 1 drops LEFT EYE BID [facility] Last Admin: 01/24/20 09:39 Dose: 1 drops Documented by: Fenofibrate (Lofibra) 160 mg PO DAILY [facility] Last Admin: 01/24/20 09:40 Dose: 160 mg Documented by: Finasteride (Proscar) 5 mg PO DAILY [facility] Last Admin: 01/24/20 09:40 Dose: 5 mg Documented by: Piperacillin Sod/Tazobactam (Sod 3.375 gm/ Sodium Chloride) 100 mls @ 25 mls/hr IVPB Q12H [facility] Latanoprost (Xalatan 0.005%) 1 drops LEFT EYE [facility] Last Admin: 01/23/20 20:14 Dose: 1 drops Documented by: Magnesium Oxide (Mag-Ox) 400 mg PO [facility] Last Admin: 01/23/20 20:14 Dose: 400 mg Documented by: Melatonin (Melatonin) 5 mg PO [facility] Last Admin: 01/23/20 20:14 Dose: 5 mg Documented by: Methylprednisolone Sodium Succinate (Solu-Medrol) 60 mg IV Q6HR [facility] Miscellaneous Information (Pneumonia Protocol Utilized) 1 each PO ONCE PRN PRN Reason: Per Protocol Multivitamins (Theragran) 1 each PO DAILY [facility] Last Admin: 01/24/20 09:40 Dose: 1 each Documented by: Tamsulosin HCl (Flomax) 0.4 mg PO PC-BRKFST [facility] Last Admin: 01/24/20 10:34 Dose: 0.4 mg Documented by: Physical examination: VITAL SIGNS: 97.7, 98, 17, 1 28 x 81, 97% on 2 L GENERAL: Laying in bed tired EYES: Pupils equal. Conjunctiva normal. HEENT: External appearance of nose and ears normal, oral cavity grossly normal. NECK: JVD unable to assess; masses not palpable. HEART: First and second heart sounds are normal; no edema. LUNGS: Respiratory rate increased, decreased breaths on some crackles. ABDOMEN: Soft, nontender, liver spleen not palpable, no masses palpable. PSYCH: Lethargic a bit more arousable today. INVESTIGATIONS, reviewed in the clinical context: White count 13.6 hemoglobin 14 platelets 304 potassium 6.2 bun 84 creatinine 4.53 calcium 10.3 Patient's creatinine was 2 on December 18 and 2.6 on December 14 EKG tracing personally reviewed by me-normal sinus rhythm Chest x-ray film personally reviewed by me--shows left upper lobe consolidation and also fluid in the fissure and venous prominence. UA positive Assessment: -Left sided malignancy of the lung suspected-further workup and Dr. Arroyo -Left upper lobe lobar pneumonia, suspect gram-negative organism -Acute metabolic encephalopathy from pneumonia -Chronic kidney disease with a baseline creatinine of 2-2.6 that is stage 3/4 -Acute kidney injury likely ATN from pneumonia, patient is also on lisinopril anika lethargic. -Hyperkalemia in the setting of acute renal failure -BPH -Hyperlipidemia -Essential hypertension -Acute UTI from cystitis Plan: Continue with IV fluids. Check labs today. Prognosis guarded. Discussed with Dr. Arroyo. Currently no family the bedside. -
[2020-01-24] MEDS: methylPREDNISolone SOD SUCCI 125 MG/2 ML VIAL IV SCH ×2 (17:38→23:12)
[2020-01-24] MEDS: PIPERACILLIN-TAZOBACTAM 3.375 GM in SODIUM CHLORIDE 0.9% 100 ML IVPB SCH (17:39)
[2020-01-24 18:41] LABS: Calcium 9.7 mg/dL (8.4-10.2); Potassium 5.8 mmol/L (3.5-5.1)
[2020-01-24] MEDS: ASPIRIN 325 MG TAB PO SCH (20:54)
[2020-01-24] MEDS: LATANOPROST 0.005% OPHTH DROPS 2.5 ML BTL LEFT EYE SCH (21:00)
[2020-01-24] MEDS: CHOLECALCIFEROL 1,000 UNIT TAB PO SCH (21:00)
[2020-01-24] MEDS: ATORVASTATIN 20 MG TAB PO SCH (21:00)
[2020-01-24] MEDS: MAGNESIUM OXIDE 400 MG TAB PO SCH (21:00)
[2020-01-24] MEDS: MELATONIN 5 MG TABLET PO SCH (21:00)
[2020-01-25] MEDS: methylPREDNISolone SOD SUCCI 125 MG/2 ML VIAL IV SCH ×4 (05:20→23:09)
[2020-01-25] MEDS: PIPERACILLIN-TAZOBACTAM 3.375 GM in SODIUM CHLORIDE 0.9% 100 ML IVPB SCH ×2 (05:21→17:33)
[2020-01-25] MEDS: IPRATROPIUM-ALBUTEROL 3 ML NEB INHALATION SCH ×3 (08:04→20:02)
[2020-01-25 09:05] LABS: HGB 12.7 gm/dL (13.0-17.5); MCV 90.6 fL (80.0-100.0); Mean Platelet Volume 7.9; Platelet Count 286 k/uL (150-450); RBC 4.53 m/uL (4.30-5.90); RDW 12.6 % (11.5-15.5); WBC 17.1 k/uL (3.8-10.6)
[2020-01-25 09:25] LABS: Calcium 9.7 mg/dL (8.4-10.2)
[2020-01-25] MEDS: BRIMONIDINE TARTRATE 0.2% DROPS 5 ML BTL LEFT EYE SCH ×2 (09:38→20:21)
[2020-01-25] MEDS: amLODIPine 5 MG TAB PO SCH ×2 (09:38→09:42)
[2020-01-25] MEDS: FENOFIBRATE 160 MG TAB PO SCH (09:38)
[2020-01-25] MEDS: FINASTERIDE 5 MG TAB PO SCH (09:38)
[2020-01-25] MEDS: TAMSULOSIN 0.4 MG CAP.ER.24H PO SCH (09:38)
[2020-01-25] MEDS: DORZOLAMIDE HCL 2% DROPS 10 ML BTL LEFT EYE SCH ×2 (09:38→20:22)
[2020-01-25] MEDS: MULTIVITAMINS, THERA 1 EACH TAB PO SCH (09:39)
[2020-01-25 10:00] LABS: Potassium 6.3 mmol/L (3.5-5.1)
[2020-01-25] MEDS ORDERED: CALCIUM GLUCONATE 1 GM in SODIUM CHLORIDE 0.9% 100 ML IVPB ONE (10:38)
[2020-01-25] MEDS ORDERED: SODIUM POLYSTYRENE SULFONATE 15 GM/60 ML BOTTLE PO STA (10:38)
[2020-01-25] MEDS ORDERED: INSULIN REGULAR 100 UNIT/ML VIAL IV ONE (10:39)
[2020-01-25] MEDS ORDERED: DEXTROSE 50% SYRINGE 50 ML IVP STA (10:39)
[2020-01-25] MEDS: SODIUM CHLORIDE 0.9% 1,000 ML IV SCH ×2 (11:09→23:10)
--- NOTE | 2020-01-25 12:43 | P.PN ---
Subjective Progress Note Date: 01/25/20 Principal diagnosis: Left upper lobe consolidating lung mass This is a 79-year-old white male, [id number] smoker, quit smoking in 2000. Patient was recently seen by his primary care physician and he was complaining of cough and congestion. He was also complaining of some shortness of breath, fatigue, malaise, he had no symptoms of weight loss. No symptoms of hemoptysis, and no chest pain. Chest x-ray in the office was suggestive of pneumonia involving the lingula, however it was extensive and a CT of the chest was ordered. His CT of the chest Showed significant abnormality in the lingula, suggestive of possible malignancy and postobstructive pneumonitis. Also showed small left pleural effusion, and opacities on the liver suspicious for metastatic disease involving the liver. Patient has mostly chest congestion, voice hoarseness, denies any weight loss, denies any hemoptysis, denies any chest pain, denies any nausea vomiting or abdominal pain. Past medical history is significant for hypercholesterolemia, vitamin D deficiency, coronary arteriosclerosis, benign essential hypertension, COPD, esophageal stricture, bladder cancer in situ treated. PFT showed FEV1 of 42%.Patient is also on updrafts. According to the patient is feeling a bit better, breathing easier. And a follow-up chest x-ray was ordered to be done today. As part of further workup, a PET scan was done that showed a consolidating mass in the left upper lobe measuring 3.7 cm in addition to increased metabolic activity within the axillary areas, hilar areas and multiple hepatic lesions consistent with hepatic metastases. Overall picture is very much consistent with metastatic carcinoma probably of a lung primary. For now, the patient is hoarse. The patient is bronchospastic. The patient is wheezy. The patient shortness of breath. He was being planned that the patient was supposed to have a outpatient fine-needle aspirate of the liver lesion however this did not get done. Currently the patient is being treated as a routine community-acquired pneumonia with a combination of Rocephin and Zithromax. He is a poor historian. He is quite lethargic also. the patient is seen today in 01/25/2020 in follow-up on the regular medical floor. He is currently sitting up in bed. More awake and alert. Denies any worsening shortness of breath. Loose nonproductive cough. No chills or night sweats.maintaining O2 saturations in the 90s on 3 L/m per nasal cannula.blood culture reveals no growth. Urine culture reveals no growth.white count 17.1. Hemoglobin 12.7. Sodium 136. Potassium 6.3. Bicarb 16. Creatinine 2.95.he remains on DuoNeb inhalations,IV Solu-Medrol and Zosyn. Objective - Vital Signs Vital signs: Vital Signs Temp 97.5 F L 01/25/20 04:46 Pulse 97 01/25/20 11:29 Resp 19 01/25/20 04:46 BP 100/63 01/25/20 09:40 Pulse Ox 94 L 01/25/20 04:46 Intake & Output 01/24/20 01/25/20 01/25/20 18:59 06:59 18:59 Intake Total 400 100 Balance 400 100 Intake: Intake, IV Titration 100 Amount Piperacillin-Tazobactam 3 100 .375 gm In Sodium Chloride 0.9% 100 ml @ 25 mls/hr IVPB Q12H [facility] Rx# :[id number] Oral 400 Other: Voiding Method Bedside Commode Bedside Commode Bedside Commode # Voids 3 2 # Bowel Movements 3 - Exam GENERAL: Awake, alert. Pleasant 79-year-old gentleman, on 3 L nasal cannula. EYES: Pupils equal. Conjunctiva normal. HEENT: External appearance of nose and ears normal, oral cavity grossly normal. NECK: JVD unable to assess; masses not palpable. HEART: First and second heart sounds are normal; no edema. LUNGS: Respiratory rate increased, decreased breaths on some cracklesin few scattered rhonchi. ABDOMEN: Soft, nontender, liver spleen not palpable, no masses palpable. PSYCH: Lethargic but arousable was able to answer some questionsl. NEUROLOGICAL: Cranial nerves grossly intact; no facial asymmetry, moving all 4 l imbs LYMPHATICS: No lymph nodes palpable in the axilla and neck - Labs CBC & Chem 7: 01/25/20 08:18 01/25/20 08:18 Labs: Abnormal Lab Results - Last 24 Hours (Table) 01/24/20 01/25/20 01/25/20 Range/Units 18:06 08:18 08:18 WBC 17.1 H (3.8-10.6) k/uL Hgb 12.7 L (13.0-17.5) gm/dL Sodium 136 L 136 L (137-145) mmol/L Potassium 5.8 H 6.3 H* (3.5-5.1) mmol/L Carbon Dioxide 21 L 16 L (22-30) mmol/L BUN 58 H 63 H (9-20) mg/dL Creatinine 2.77 H 2.95 H (0.66-1.25) mg/dL Glucose 155 H (74-99) mg/dL Microbiology - Last 24 Hours (Table) 01/24/20 04:13 Urine Culture - Final Urine,Voided 01/22/20 16:37 Blood Culture - Preliminary Blood No Growth after 48 hours Assessment and Plan Assessment: 1 left upper lobe consolidating lung mass, measuring 3.7 cm along with hilar lymphadenopathy, abdominal lymphadenopathy, metastatic liver lesions in addition to axillary lymphadenopathy and the picture is highly suspicious for primary bronchogenic carcinoma. 2 acute COPD exacerbation with secondary shortness of breath, consider left lower lobe pneumonia. The patient also has a left-sided pleural effusion that was noted on previous CAT scan and PET scan imaging. 3 severe chronic obstructive pulmonary disease, with a possibility of a postobstructive pneumonia 4 carcinoma of urinary bladder, superficial 5 coronary arteriosclerosis 6 essential hypertension 7 glaucoma 8 hyperlipidemia 9 pure hypercholesterolemia 10 stricture of esophagus 11 hoarseness secondary to possible vocal cord paralysis 12 hyperkalemia 13 acute on chronic renal failure Plan The patient was seen and evaluated by Dr. Arroyo. He is more stable today compared to yesterday. Continued on DuoNeb inhalations, IV Solu-Medrol, Zosyn. We did speak with the patient's niece today who is the power of estate attorney. She would like to proceed with bronchoscopy and biopsies for diagnosis. She is informed of the risks of the procedure including possible intubation and mechanical ventilatory support depending on how he tolerates it. Still wanting to proceed. Correct the potassium. Plan for bronchoscopy with BAL and biopsies in the a.m. He is scheduled for a biopsy of the liver on 01/29/2020 after being off his aspirin for 1 full week per interventional radiology. We will continue to follow and make further recommendations based on his clinical status. I, the cosigning physician, performed a history & physical examination of the patient. Lungs sounds with faint end expiratory wheeze, bilateral scattered rhonchi. Maintaining good O2 saturations in the 90s on 3 L/m per nasal cannula I discussed the assessment and plan of care with my nurse practitioner, Debbie Suggs. I attest to the above note as dictated by her.
[2020-01-25] MEDS: MELATONIN 5 MG TABLET PO SCH (20:21)
[2020-01-25] MEDS: CHOLECALCIFEROL 1,000 UNIT TAB PO SCH (20:21)
[2020-01-25] MEDS: LATANOPROST 0.005% OPHTH DROPS 2.5 ML BTL LEFT EYE SCH (20:21)
[2020-01-25] MEDS: ASPIRIN 325 MG TAB PO SCH (20:21)
[2020-01-25] MEDS: ATORVASTATIN 20 MG TAB PO SCH (20:21)
[2020-01-25] MEDS: MAGNESIUM OXIDE 400 MG TAB PO SCH (20:21)
--- NOTE | 2020-01-25 20:37 | P.PN ---
Progress Note - Text Progress Note Date: 01/25/20 Chief Complaint: Short of breath History of presenting complaint: This is a pleasant 79-year-old patient of Dr. gonzalez. Chronic stable medical conditions include hyperlipidemia, bladder cancer. Also recently reported of a liver mass and lung nodule. Patient presented to ER with increasing short of breath. Not eating drinking much. Did not take his medications for about a week. Himself the patient other times not able to give much of a history. Patient is reportedly ex-smoker. Rather lethargic and drowsy but able to answer some questions. No family the bedside. Additionally outpatient workup including computed tomography scan was suggestive of primary lung malignancy with hepatic metastasis Admitted with possible obstructive pneumonia, metabolic encephalopathy, acute kidney injury. Today-sitting up in a chair. More awake. Congested, hoarse voice. Some shortness of breath. Review of systems: Was attempted for constitutional, cardiovascular, GI, pulmonary. relevant finding as above Active Medications Albuterol/Ipratropium (Duoneb 0.5 Mg-3 Mg/3 Ml Soln) 3 ml INHALATION RT-TID [facility] Last Admin: 01/25/20 20:02 Dose: 3 ml Documented by: Albuterol/Ipratropium (Duoneb 0.5 Mg-3 Mg/3 Ml Soln) 3 ml INHALATION RT-Q2H PRN PRN Reason: Shortness Of Breath Or Wheezing Last Admin: 01/23/20 23:38 Dose: 3 ml Documented by: Amlodipine Besylate (Norvasc) 5 mg PO QAM [facility] Last Admin: 01/25/20 09:42 Dose: Not Given Documented by: Aspirin (Aspirin) 325 mg PO [facility] Last Admin: 01/25/20 20:21 Dose: 325 mg Documented by: Atorvastatin Calcium (Lipitor) 20 mg PO [facility] Last Admin: 01/25/20 20:21 Dose: 20 mg Documented by: Brimonidine Tartrate (Alphagan P 0.2% Ophth Soln) 1 drops LEFT EYE BID [facility] Last Admin: 01/25/20 20:21 Dose: 1 drops Documented by: Cholecalciferol (Vitamin D3 (25 Mcg = 1000 Iu)) 1,000 unit PO [facility] Last Admin: 01/25/20 20:21 Dose: 1,000 unit Documented by: Dorzolamide HCl (Trusopt) 1 drops LEFT EYE BID [facility] Last Admin: 01/25/20 20:22 Dose: 1 drops Documented by: Fenofibrate (Lofibra) 160 mg PO DAILY [facility] Last Admin: 01/25/20 09:38 Dose: 160 mg Documented by: Finasteride (Proscar) 5 mg PO DAILY [facility] Last Admin: 01/25/20 09:38 Dose: 5 mg Documented by: Piperacillin Sod/Tazobactam (Sod 3.375 gm/ Sodium Chloride) 100 mls @ 25 mls/hr IVPB Q12H [facility] Last Admin: 01/25/20 17:33 Dose: 25 mls/hr Documented by: Sodium Chloride (Saline 0.9%) 1,000 mls @ 75 mls/hr IV .[id number] [facility] Last Admin: 01/25/20 11:09 Dose: Not Given Documented by: Latanoprost (Xalatan 0.005%) 1 drops LEFT EYE HS [facility] Last Admin: 01/25/20 20:21 Dose: 1 drops Documented by: Magnesium Oxide (Mag-Ox) 400 mg PO HS [facility] Last Admin: 01/25/20 20:21 Dose: 400 mg Documented by: Melatonin (Melatonin) 5 mg PO HS [facility] Last Admin: 01/25/20 20:21 Dose: 5 mg Documented by: Methylprednisolone Sodium Succinate (Solu-Medrol) 60 mg IV Q6HR [facility] Last Admin: 01/25/20 17:32 Dose: 60 mg Documented by: Miscellaneous Information (Pneumonia Protocol Utilized) 1 each PO ONCE PRN PRN Reason: Per Protocol Multivitamins (Theragran) 1 each PO DAILY [facility] Last Admin: 01/25/20 09:39 Dose: 1 each Documented by: Tamsulosin HCl (Flomax) 0.4 mg PO PC-BRKFST [facility] Last Admin: 01/25/20 09:38 Dose: 0.4 mg Documented by: Physical examination: VITAL SIGNS: 97.4, 103, 18, 102/65, 94% on 3 L GENERAL: Sitting up in a chair, awake answering questions EYES: Pupils equal. Conjunctiva normal. HEENT: External appearance of nose and ears normal, oral cavity grossly normal. NECK: JVD unable to assess; masses not palpable. HEART: First and second heart sounds are normal; no edema. LUNGS: Respiratory rate increased, decreased breaths on some crackles. ABDOMEN: Soft, nontender, liver spleen not palpable, no masses palpable. PSYCH: Answering questions today. INVESTIGATIONS, reviewed in the clinical context: White count 7.1 hemoglobin 12.7 potassium 6.3 bun 63 creatinine 2.95 Previous testing White count 13.6 hemoglobin 14 platelets 304 potassium 6.2 bun 84 creatinine 4.53 calcium 10.3 Patient's creatinine was 2 on December 18 and 2.6 on December 14 EKG tracing personally reviewed by me-normal sinus rhythm Chest x-ray film personally reviewed by me--shows left upper lobe consolidation and also fluid in the fissure and venous prominence. UA positive Assessment: -Pulmonary malignancy suspected with liver metastasis-further workup and Dr. Arroyo -Left upper lobe lobar pneumonia, suspect gram-negative organism -Acute metabolic encephalopathy from pneumonia-improving -Chronic kidney disease with a baseline creatinine of 2-2.6 that is stage 3/4 -Acute kidney injury likely ATN from pneumonia, patient is also on lisinopril. -Hyperkalemia in the setting of acute renal failure-worsening -BPH -Hyperlipidemia -Essential hypertension -Acute UTI from cystitis Plan: Kayexalate 30 g, calcium gluconate, sodium bicarbonate, insulin with dextrose was ordered this morning. Repeat potassium in the evening. -
[2020-01-25 22:14] LABS: Calcium 9.5 mg/dL (8.4-10.2); Potassium 5.1 mmol/L (3.5-5.1)
[2020-01-26] MEDS: methylPREDNISolone SOD SUCCI 125 MG/2 ML VIAL IV SCH ×2 (05:28→12:46)
[2020-01-26] MEDS: PIPERACILLIN-TAZOBACTAM 3.375 GM in SODIUM CHLORIDE 0.9% 100 ML IVPB SCH ×2 (05:29→17:40)
[2020-01-26 07:51] LABS: Calcium 9.6 mg/dL (8.4-10.2)
[2020-01-26] MEDS: IPRATROPIUM-ALBUTEROL 3 ML NEB INHALATION SCH ×4 (08:28→21:32)
[2020-01-26] MEDS ORDERED: KETAMINE 10 MG/ML 20 ML VIAL ONE (09:58)
[2020-01-26] MEDS ORDERED: IV FLUID CONTINUATION 1,000 ML IV ONE (09:58)
[2020-01-26] MEDS ORDERED: PROPOFOL 10 MG/ML 20 ML VIAL IV ONE (09:58)
--- NOTE | 2020-01-26 10:27 | P.PN ---
Subjective Progress Note Date: 01/26/20 This is a 79-year-old white male, 46-lwmt-aalo smoker, quit smoking in 2000. Patient was recently seen by his primary care physician and he was complaining of cough and congestion. He was also complaining of some shortness of breath, fatigue, malaise, he had no symptoms of weight loss. No symptoms of hemoptysis, and no chest pain. Chest x-ray in the office was suggestive of pneumonia involving the lingula, however it was extensive and a CT of the chest was ordered. His CT of the chest Showed significant abnormality in the lingula, suggestive of possible malignancy and postobstructive pneumonitis. Also showed small left pleural effusion, and opacities on the liver suspicious for metastatic disease involving the liver. Patient has mostly chest congestion, voice hoarseness, denies any weight loss, denies any hemoptysis, denies any chest pain, denies any nausea vomiting or abdominal pain. Past medical history is significant for hypercholesterolemia, vitamin D deficiency, coronary arteriosclerosis, benign essential hypertension, COPD, esophageal stricture, bladder cancer in situ treated. PFT showed FEV1 of 42%.Patient is also on updrafts. According to the patient is feeling a bit better, breathing easier. And a follow-up chest x-ray was ordered to be done today. As part of further workup, a PET scan was done that showed a consolidating mass in the left upper lobe measuring 3.7 cm in addition to increased metabolic activity within the axillary areas, hilar areas and multiple hepatic lesions consistent with hepatic metastases. Overall picture is very much consistent with metastatic carcinoma probably of a lung primary. For now, the patient is hoarse. T On today's evaluation of 01/26/2020, the patient is going to undergo a bronchoscopy. As mentioned earlier, there is a concern for metastatic carcinoma of a lung primary. The patient remains hoarse. He has some ongoing wheezing and bronchodilators is also on IV Solu-Medrol. Patient is also on empiric antibiotic coverage with IV Zosyn. No hemoptysis. He is nothing by mouth this morning regarding the bronchoscopy. I'm going to do this and I may need fluoroscopy regarding the biopsy of the left upper lobe. Objective - Vital Signs Vital signs: Vital Signs Temp 97.7 F 01/26/20 05:00 Pulse 107 H 01/26/20 05:00 Resp 18 01/26/20 05:00 BP 118/56 01/26/20 05:00 Pulse Ox 94 L 01/26/20 05:00 Intake & Output 01/25/20 01/26/20 01/26/20 18:59 06:59 18:59 Intake Total 425 1000 Balance 425 1000 Intake: Intake, IV Titration 425 900 Amount Calcium Gluconate 1 gm In 100 Sodium Chloride 0.9% 100 ml @ 100 mls/hr IVPB ONCE ONE Rx#:[id number] Sodium Chloride 0.9% 1, 325 900 000 ml @ 75 mls/hr IV . [id number] [facility] Rx#:[id number] Oral 100 Other: Voiding Method Bedside Commode Bedside Commode # Voids 5 - Exam GENERAL: BMI 23.3, laying in bed and lethargic but arousable. EYES: Pupils equal. Conjunctiva normal. HEENT: External appearance of nose and ears normal, oral cavity grossly normal. NECK: JVD unable to assess; masses not palpable. HEART: First and second heart sounds are normal; no edema. LUNGS: Respiratory rate increased, decreased breaths on some crackles. The patient has diminished breath sounds and the patient actively bronchospastic and wheezy with diffuse expiratory wheezes throughout the lung nair bilaterally. ABDOMEN: Soft, nontender, liver spleen not palpable, no masses palpable. PSYCH: Lethargic but arousable was able to answer some questionsl. NEUROLOGICAL: [Cranial nerves grossly intact; no facial asymmetry, moving all 4 limbs LYMPHATICS: No lymph nodes palpable in the axilla and neck - Labs CBC & Chem 7: 01/25/20 08:18 01/26/20 06:48 Labs: Abnormal Lab Results - Last 24 Hours (Table) 01/25/20 01/26/20 Range/Units 21:29 06:48 Sodium 134 L 135 L (137-145) mmol/L Carbon Dioxide 20 L 20 L (22-30) mmol/L BUN 71 H 73 H (9-20) mg/dL Creatinine 2.93 H 3.00 H (0.66-1.25) mg/dL Glucose 189 H 159 H (74-99) mg/dL Microbiology - Last 24 Hours (Table) 01/22/20 16:37 Blood Culture - Preliminary Blood No Growth after 72 hours 01/24/20 04:13 Urine Culture - Final Urine,Voided Assessment and Plan Plan: 1 left upper lobe consolidating lung mass, measuring 3.7 cm along with hilar lymphadenopathy, abdominal lymphadenopathy, metastatic liver lesions in addition to axillary lymphadenopathy and the picture is highly suspicious for primary bronchogenic carcinoma. The patient has not been diagnosed.. The patient needs tissue diagnosis. The plan is to the bronchoscopy today to evaluate the left lung findings, there is any endobronchial abnormalities causing volume loss and postobstructive pneumonia and establish diagnosis. 2 acute COPD exacerbation with secondary shortness of breath, consider left lower lobe pneumonia. The patient also has a left-sided pleural effusion that was noted on previous CAT scan and PET scan imaging. 3 severe chronic obstructive pulmonary disease, with a possibility of a postobstructive pneumonia 4 carcinoma of urinary bladder, superficial 5 coronary arteriosclerosis 6 essential hypertension 7 glaucoma 8 hyperlipidemia 9 pure hypercholesterolemia 10 stricture of esophagus 11 hoarseness secondary to possible vocal cord paralysis Plan Continue same treatment Bronchoscopy today Procedure including the potential complications was explained to the patient's family We'll proceed with the procedure and will make further recommendations based on the findings. Continue bronchodilators Continue steroids
--- NOTE | 2020-01-26 10:59 | P.PCN ---
Date of Procedure: 01/26/20 Preoperative Diagnosis: Left upper lobe mass, postobstructive pneumonia Postoperative Diagnosis: 1 paralysis of the left vocal cord 2 narrowing of the lingular bronchus with extrinsic compression and possible endobronchial tumor involvement 3 narrowing of the left lower lobe bronchus along with various segments mainly anterior and lateral segments. Procedure(s) Performed: Flexible bronchoscopy chest bronchodilators of the left upper lobe bronchioloal veolar lavage of the left upper lobe Anesthesia: MAC Surgeon: Jay Jay Arroyo Estimated Blood Loss (ml): 0 Pathology: other Condition: stable Disposition: floor Operative Findings: This is a 79-year-old male patient who came into the endoscopy suite for a bronchoscopy for diagnostic purposes. The patient is suspected to have underlying bronchogenic carcinoma. A timeout was done. A consent was already signed. Procedure was done under conscious sedation. The patient was given a combination of ketamine and propofol. After achieving adequate sedation, the flexible was introduced of the right nostril. The bronchoscope was advanced and the posterior oropharynx, larynx epiglottis vallecula and the vocal cords were inspected. Note that the posterior oropharynx was within normal limits, larynx was within normal, epiglottis was in the midline. The left vocal cord was paralyzed. There was normal right vocal cord movement and activity noted on inspection. It was a left is percent lidocaine was applied to the vocal cords and following that the bronchoscope was advanced into the upper trachea and the examination of the tracheal bronchial tree was done. Examination of the trachea was normal. The right side included the right mainstem bronchus, right upper lobe bronchus, bronchus intermedius, right middle lobe bronchus and right lower lobe bronchus. These are within normal limits. Bronchoscope was moved to the left side and the left mainstem bronchus was patent and within normal limits. The secondary jovanny the to the left upper lobe and the left lower lobe was identified. There was obvious narrowing of the origin of the left upper lobe bronchus which was mild in nature. Nevertheless, the orifice of the lingular segment with significantly narrowed and the 2 segments within the lingula ( superior and inferior ) cannot be accurately visualized within the lingula. There was evidence of endobronchial irregularities at the same level consistent possible endobronchial tumor. There was obvious compression also. Examination of the anterior segment of the left upper lobe was also showing some extrinsic compression and narrowing. Similar findings were found in the left lower lobe bronchus with a anterior and lateral segments were quite impressed. Endobronchially, there was some irregularities and erythema. I'm not sure if this is consistent with endobronchial tumor. No purulent material was identified. The bronchoscope was removed to the lingular segment of the left upper lobe with has bronchial biopsies were obtained. Multiple biopsies were done under fluoroscopic guidance. Following that, a bronchioloalveolar lavage of the left upper lobe was done with a total of 80cc of fluid was infused and testes was aspirated without any major difficulties. The patient tolerated the procedure well. Bronchoscope was removed and the patient was transferred recovery in stable condition. We'll continue to follow make further recommendations based on the results of the biopsy.
--- NOTE | 2020-01-26 11:43 | FL ---
EXAMINATION TYPE: FL bronchoscopy DATE OF EXAM: 01/26/2020 CLINICAL HISTORY: Lung mass TECHNIQUE: Fluoroscopy. COMPARISON: PET CT January 12, 2020.. FINDINGS: Fluoroscopic guidance was provided during bronchoscopy procedure performed by Dr. Arroyo . A total of 60 seconds of fluoroscopic time was utilized during the procedure and single spot intra operative image is acquired. Single image shows advancement of bronchoscope into the left lung. IMPRESSION: As Above.
[2020-01-26] MEDS: DORZOLAMIDE HCL 2% DROPS 10 ML BTL LEFT EYE SCH ×2 (12:44→21:17)
[2020-01-26] MEDS: BRIMONIDINE TARTRATE 0.2% DROPS 5 ML BTL LEFT EYE SCH ×2 (12:44→21:17)
[2020-01-26] MEDS: amLODIPine 5 MG TAB PO SCH (12:45)
[2020-01-26] MEDS: FENOFIBRATE 160 MG TAB PO SCH (12:45)
[2020-01-26] MEDS: FINASTERIDE 5 MG TAB PO SCH (12:45)
[2020-01-26] MEDS: TAMSULOSIN 0.4 MG CAP.ER.24H PO SCH (12:45)
[2020-01-26] MEDS: MULTIVITAMINS, THERA 1 EACH TAB PO SCH (12:45)
[2020-01-26] MEDS: SODIUM CHLORIDE 0.9% 1,000 ML IV SCH (16:26)
--- NOTE | 2020-01-26 16:53 | P.PN ---
Progress Note - Text Progress Note Date: 01/26/20 Chief Complaint: Short of breath History of presenting complaint: This is a pleasant 79-year-old patient of Dr. gonzalez. Chronic stable medical conditions include hyperlipidemia, bladder cancer. Also recently reported of a liver mass and lung nodule. Patient presented to ER with increasing short of breath. Not eating drinking much. Did not take his medications for about a week. Himself the patient other times not able to give much of a history. Patient is reportedly ex-smoker. Rather lethargic and drowsy but able to answer some questions. No family the bedside. Additionally outpatient workup including computed tomography scan was suggestive of primary lung malignancy with hepatic metastasis Admitted with possible obstructive pneumonia, metabolic encephalopathy, acute kidney injury. Today-Status post bronchoscopy today.. Results discussed Dr. Arroyo. Some shortness of breath and wheezing present. Laying in bed. Did tolerate his meals. Review of systems: Was attempted for constitutional, cardiovascular, GI, pulmonary. relevant finding as above Active Medications Albuterol/Ipratropium (Duoneb 0.5 Mg-3 Mg/3 Ml Soln) 3 ml INHALATION RT-TID [facility] Last Admin: 01/26/20 13:24 Dose: 3 ml Documented by: Albuterol/Ipratropium (Duoneb 0.5 Mg-3 Mg/3 Ml Soln) 3 ml INHALATION RT-Q2H PRN PRN Reason: Shortness Of Breath Or Wheezing Last Admin: 01/23/20 23:38 Dose: 3 ml Documented by: Amlodipine Besylate (Norvasc) 5 mg PO QAM [facility] Last Admin: 01/26/20 12:45 Dose: 5 mg Documented by: Aspirin (Aspirin) 325 mg PO [facility] Last Admin: 01/25/20 20:21 Dose: 325 mg Documented by: Atorvastatin Calcium (Lipitor) 20 mg PO [facility] Last Admin: 01/25/20 20:21 Dose: 20 mg Documented by: Brimonidine Tartrate (Alphagan P 0.2% Ophth Soln) 1 drops LEFT EYE BID [facility] Last Admin: 01/26/20 12:44 Dose: 1 drops Documented by: Cholecalciferol (Vitamin D3 (25 Mcg = 1000 Iu)) 1,000 unit PO [facility] Last Admin: 01/25/20 20:21 Dose: 1,000 unit Documented by: Dorzolamide HCl (Trusopt) 1 drops LEFT EYE BID [facility] Last Admin: 01/26/20 12:44 Dose: 1 drops Documented by: Fenofibrate (Lofibra) 160 mg PO DAILY [facility] Last Admin: 01/26/20 12:45 Dose: 160 mg Documented by: Finasteride (Proscar) 5 mg PO DAILY [facility] Last Admin: 01/26/20 12:45 Dose: 5 mg Documented by: Piperacillin Sod/Tazobactam (Sod 3.375 gm/ Sodium Chloride) 100 mls @ 25 mls/hr IVPB Q12H [facility] Last Admin: 01/26/20 05:29 Dose: 25 mls/hr Documented by: Sodium Chloride (Saline 0.9%) 1,000 mls @ 75 mls/hr IV .[id number] [facility] Last Admin: 01/26/20 16:26 Dose: Not Given Documented by: Latanoprost (Xalatan 0.005%) 1 drops LEFT EYE HS [facility] Last Admin: 01/25/20 20:21 Dose: 1 drops Documented by: Magnesium Oxide (Mag-Ox) 400 mg PO HS [facility] Last Admin: 01/25/20 20:21 Dose: 400 mg Documented by: Melatonin (Melatonin) 5 mg PO HS [facility] Last Admin: 01/25/20 20:21 Dose: 5 mg Documented by: Methylprednisolone Sodium Succinate (Solu-Medrol) 60 mg IV Q6HR [facility] Last Admin: 01/26/20 12:46 Dose: 60 mg Documented by: Miscellaneous Information (Pneumonia Protocol Utilized) 1 each PO ONCE PRN PRN Reason: Per Protocol Multivitamins (Theragran) 1 each PO DAILY [facility] Last Admin: 01/26/20 12:45 Dose: 1 each Documented by: Tamsulosin HCl (Flomax) 0.4 mg PO PC-BRKFST [facility] Last Admin: 01/26/20 12:45 Dose: 0.4 mg Documented by: Physical examination: VITAL SIGNS: 97.3, 103, 16, 143/76, 95% on room air GENERAL: Laying in bed, awake EYES: Pupils equal. Conjunctiva normal. HEENT: External appearance of nose and ears normal, oral cavity grossly normal. NECK: JVD unable to assess; masses not palpable. HEART: First and second heart sounds are normal; no edema. LUNGS: Respiratory rate increased, decreased breaths sounds. ABDOMEN: Soft, nontender, liver spleen not palpable, no masses palpable. PSYCH: Answering questions today. INVESTIGATIONS, reviewed in the clinical context: White count 7.1 hemoglobin 12.7 potassium 6.3 bun 63 creatinine 2.95 Bronchoscopy-compression of left lingular and lower lobe and paralysis of left vocal cord Previous testing White count 13.6 hemoglobin 14 platelets 304 potassium 6.2 bun 84 creatinine 4.53 calcium 10.3 Patient's creatinine was 2 on December 18 and 2.6 on December 14 EKG tracing personally reviewed by me-normal sinus rhythm Chest x-ray film personally reviewed by me--shows left upper lobe consolidation and also fluid in the fissure and venous prominence. UA positive Assessment: -Compression of left lingular and left lower lobe from extrinsic compression- pulmonary -Left vocal cord paralysis -Post obstructive pneumonia suspected -Acute COPD exacerbation in an ex-smoker -Acute metabolic encephalopathy from improved -Chronic kidney disease with a baseline creatinine of 2-2.6 that is stage 3/4 -Acute kidney injury likely ATN from pneumonia, patient is also on lisinopril. -Hyperkalemia in the setting of acute renal improved -BPH -Hyperlipidemia -Essential hypertension -Acute UTI from cystitis Plan: Status post bronchoscopy. Results discussed Dr. Arroyo. Prognosis guarded. Dr. Arroyo did speak to the patient and his family. Cut back Solu-Medrol. Prognosis guarded. -
[2020-01-26] MEDS: methylPREDNISolone SOD SUCCI 40 MG/ML 1 ML VIAL IV SCH ×2 (17:39→23:39)
[2020-01-26] MEDS: MAGNESIUM OXIDE 400 MG TAB PO SCH (21:17)
[2020-01-26] MEDS: CHOLECALCIFEROL 1,000 UNIT TAB PO SCH (21:17)
[2020-01-26] MEDS: MELATONIN 5 MG TABLET PO SCH (21:17)
[2020-01-26] MEDS: LATANOPROST 0.005% OPHTH DROPS 2.5 ML BTL LEFT EYE SCH (21:17)
[2020-01-26] MEDS: ATORVASTATIN 20 MG TAB PO SCH (21:17)
[2020-01-26] MEDS: PANTOPRAZOLE 40 MG/10 ML VIAL IVP SCH (21:17)
[2020-01-27] MEDS: SODIUM CHLORIDE 0.9% 1,000 ML IV SCH ×2 (06:17→16:03)
[2020-01-27] MEDS: PIPERACILLIN-TAZOBACTAM 3.375 GM in SODIUM CHLORIDE 0.9% 100 ML IVPB SCH ×2 (06:17→17:18)
[2020-01-27] MEDS: DORZOLAMIDE HCL 2% DROPS 10 ML BTL LEFT EYE SCH ×2 (07:35→19:51)
[2020-01-27] MEDS: BRIMONIDINE TARTRATE 0.2% DROPS 5 ML BTL LEFT EYE SCH ×2 (07:35→19:51)
[2020-01-27] MEDS: methylPREDNISolone SOD SUCCI 40 MG/ML 1 ML VIAL IV SCH ×3 (07:36→23:06)
[2020-01-27] MEDS: IPRATROPIUM-ALBUTEROL 3 ML NEB INHALATION SCH ×3 (07:38→19:59)
[2020-01-27] MEDS: PANTOPRAZOLE 40 MG/10 ML VIAL IVP SCH ×2 (07:44→19:50)
[2020-01-27 08:53] LABS: Basophils % (A) 0 %; Eosinophils % (A) 0 %; HCT 30.1 % (39.0-53.0); Lymphocytes # (A) 0.8 k/uL (1.0-4.8); Lymphocytes % (A) 4 %; MCH 28.7 pg (25.0-35.0); MCHC 32.3 g/dL (31.0-37.0); MCV 88.9 fL (80.0-100.0); Mean Platelet Volume 7.6; Monocytes # (A) 0.8 k/uL (0-1.0); Monocytes % (A) 4 %; Neutrophils # (A) 18.9 k/uL (1.3-7.7); Neutrophils % (A) 91 %; Platelet Count 307 k/uL (150-450); RBC 3.38 m/uL (4.30-5.90); RDW 12.7 % (11.5-15.5); WBC 20.7 k/uL (3.8-10.6)
[2020-01-27 08:54] LABS: HGB 9.7 gm/dL (13.0-17.5)
--- NOTE | 2020-01-27 11:34 | P.GSCN ---
History of Present Illness Consult date: 01/27/20 History of present illness: 79-year-old gentleman who was brought in the hospital because of shortness of breath. He is found to have a left lower lobe pneumonia. He has been having problems urinating during this hospitalization with a large residuals. A catheters placed last night because of a residual greater than 400 mL. The patient is interviewed at the bedside. He answers his own questions. I'm not totally certain as the reliability of this. He states that prior to coming in the hospital he voided relatively well. There is some frequency. He gets up 2- 3 times per night. There's been no infection bleeding or incontinence. He denies previous urologic consultation. He denies urine infection or hematuria. He denies prostate medications prehospitalization however he was on Proscar according to the emergency room notes. He has been placed on tamsulosin subsequently. Review of Systems ROS unobtainable: due to mental status Past Medical History Past Medical History: Cancer, COPD, Eye Disorder, Hyperlipidemia, Liver Disease, Pneumonia Additional Past Medical History / Comment(s): bladder CA 2010, liver mass and lung nodule}new in work up History of Any Multi-Drug Resistant Organisms: None Reported Past Surgical History: No Surgical Hx Reported Past Anesthesia/Blood Transfusion Reactions: No Reported Reaction Additional Past Anesthesia/Blood Transfusion Reaction / Comm: unknown Past Psychological History: No Psychological Hx Reported Smoking Status: Former smoker Past Alcohol Use History: None Reported Additional Past Alcohol Use History / Comment(s): since age 20 Past Drug Use History: None Reported Medications and Allergies Home Medications Medication Instructions Recorded Confirmed Type Aspirin 325 mg PO HS 01/16/20 01/22/20 History Atorvastatin [Lipitor] 20 mg PO HS 01/16/20 01/22/20 History Cholecalciferol [Vitamin D3 (25 1,000 unit PO HS 01/16/20 01/22/20 History Mcg = 1000 Iu)] Fenofibrate Nanocrystallized 160 mg PO DAILY 01/16/20 01/22/20 History [Tricor] Finasteride [Proscar] 5 mg PO DAILY 01/16/20 01/22/20 History Lisinopril-Hctz 20-12.5 mg 1 tab PO QAM 01/16/20 01/22/20 History [Zestoretic 20-12.5] Magnesium 250 mg PO HS 01/16/20 01/22/20 History Melatonin 5 mg PO HS 01/16/20 01/22/20 History amLODIPine [Norvasc] 5 mg PO QAM 01/16/20 01/22/20 History Dorzolamide HCl/Pf [Dorzolamide 2% 1 drop LEFT EYE BID 01/21/20 01/22/20 History Eye Drop] Ibuprofen/Diphenhydramine HCl 1 cap PO HS 01/21/20 01/22/20 History [Advil Pm Liqui-Gels] Brimonidine Tartrate [Alphagan P 1 drops LEFT EYE BID 01/22/20 01/22/20 History 0.2% Ophth Soln] Latanoprost [Xalatan 0.005%] 1 drop LEFT EYE HS 01/22/20 01/22/20 History Multivitamins, Thera [Multivitamin 1 tab PO DAILY 01/22/20 01/22/20 History (formulary)] Allergies Allergy/AdvReac Type Severity Reaction Status Date / Time No Known Allergies Allergy Verified 01/22/20 14:24 Surgical - Exam Vital Signs Temp Pulse Resp BP Pulse Ox 97.4 F L 97 16 85/59 93 L 01/22/20 12:26 01/22/20 12:26 01/22/20 12:26 01/22/20 12:26 01/22/20 12:26 - General Mild shortness of breath well developed, well nourished - Eyes PERRL - ENT normal mucosa - Neck no masses - Respiratory Nasal oxygen, mild shortness of breath - Cardiovascular Rhythm: regular - Abdomen Abdomen: soft, non tender - Genitourinary Indwelling catheter, testes descended, normal penis, prostate 30-40 g firm but benign - Rectum Rectum: no tenderness - Integumentary no rash, no growths - Neurologic normal coordination, normal sensation - Musculoskeletal normal posture - Psychiatric oriented to person, oriented to place Results - Labs 01/27/20 08:32 01/26/20 06:48 Abnormal Lab Results - Last 24 Hours (Table) 01/27/20 Range/Units 08:32 WBC 20.7 H (3.8-10.6) k/uL RBC 3.38 L (4.30-5.90) m/uL Hgb 9.7 L D (13.0-17.5) gm/dL Hct 30.1 L (39.0-53.0) % Neutrophils # 18.9 H (1.3-7.7) k/uL Lymphocytes # 0.8 L (1.0-4.8) k/uL Microbiology - Last 24 Hours (Table) 01/22/20 16:37 Blood Culture - Preliminary Blood No Growth after 96 hours Assessment and Plan Assessment: Impression: Urinary retention. Acute and chronic BPH. Left lower lobe pneumonia Recommendations: The patient has been on Proscar. He was started on tamsulosin. I would leave indwelling catheter until his pneumonia has been controlled he and he is ambulating. That point time I remove the catheter for a voiding trial checking a postvoid residual after the first void.
[2020-01-27] MEDS: TAMSULOSIN 0.4 MG CAP.ER.24H PO SCH (12:10)
[2020-01-27] MEDS: MULTIVITAMINS, THERA 1 EACH TAB PO SCH (12:10)
[2020-01-27] MEDS: amLODIPine 5 MG TAB PO SCH (12:11)
[2020-01-27] MEDS: FENOFIBRATE 160 MG TAB PO SCH (12:11)
[2020-01-27] MEDS: FINASTERIDE 5 MG TAB PO SCH (12:11)
--- NOTE | 2020-01-27 13:58 | P.PN ---
Subjective Progress Note Date: 01/27/20 This is a 79-year-old white male, [id number]-frhu smoker, quit smoking in 2000. Patient was recently seen by his primary care physician and he was complaining of cough and congestion. He was also complaining of some shortness of breath, fatigue, malaise, he had no symptoms of weight loss. No symptoms of hemoptysis, and no chest pain. Chest x-ray in the office was suggestive of pneumonia involving the lingula, however it was extensive and a CT of the chest was ordered. His CT of the chest Showed significant abnormality in the lingula, suggestive of possible malignancy and postobstructive pneumonitis. Also showed small left pleural effusion, and opacities on the liver suspicious for metastatic disease involving the liver. Patient has mostly chest congestion, voice hoarseness, denies any weight loss, denies any hemoptysis, denies any chest pain, denies any nausea vomiting or abdominal pain. Past medical history is significant for hypercholesterolemia, vitamin D deficiency, coronary arteriosclerosis, benign essential hypertension, COPD, esophageal stricture, bladder cancer in situ treated. PFT showed FEV1 of 42%.Patient is also on updrafts. According to the patient is feeling a bit better, breathing easier. And a follow-up chest x-ray was ordered to be done today. As part of further workup, a PET scan was done that showed a consolidating mass in the left upper lobe measuring 3.7 cm in addition to increased metabolic activity within the axillary areas, hilar areas and multiple hepatic lesions consistent with hepatic metastases. Overall picture is very much consistent with metastatic carcinoma probably of a lung primary. For now, the patient is hoarse. On today's evaluation of 01/26/2020, the patient is going to undergo a bronchoscopy. As mentioned earlier, there is a concern for metastatic carcinoma of a lung primary. The patient remains hoarse. He has some ongoing wheezing and bronchodilators is also on IV Solu-Medrol. Patient is also on empiric antibiotic coverage with IV Zosyn. No hemoptysis. He is nothing by mouth this morning regarding the bronchoscopy. I'm going to do this and I may need fluoroscopy regarding the biopsy of the left upper lobe. On 01/27/2020 on seeing the patient for a follow-up. Is post bronchoscopy awaiting the biopsy results from the left upper lobe. There is an obvious consented for malignancy. Please refer to the bronchoscopy note that was done earlier. Remains on IV Zosyn. Remains on IV Solu-Medrol. He remains on bronchodilators. Voice is hoarse and paralyzed of the left vocal cord was confirmed by bronchoscopy. As for the rest of the findings, there was narrowing of the lingular segment and the various segments of the left lower lobe due to left lung mass. High suspicious for malignancy. He is weak. He wants to go to [facility] for rehabilitation. As noted, his disease is metastatic at this point in time. He did have some issues with urinary retention and urology was consulted and the patient was given a Dong catheter and is producing adequate amount of urine output and currently on IV fluids at 75 mL an hour. Objective - Vital Signs Vital signs: Vital Signs Temp 97.6 F 01/27/20 11:00 Pulse 104 H 01/27/20 13:24 Resp 20 01/27/20 11:00 BP 108/66 01/27/20 11:00 Pulse Ox 96 01/27/20 11:00 Intake & Output 01/26/20 01/27/20 01/27/20 17:59 06:59 18:59 Intake Total Output Total Balance Intake: IV Intake, IV Titration Amount Piperacillin-Tazobactam 3 .375 gm In Sodium Chloride 0.9% 100 ml @ 25 mls/hr IVPB Q12H [facility] Rx# :[id number] Sodium Chloride 0.9% 1, 000 ml @ 75 mls/hr IV . [id number] YOVANY Rx#:[id number] Oral Output: Urine Other: Voiding Method # Voids # Bowel Movements - Exam GENERAL: BMI 23.3, laying in bed and lethargic but arousable. EYES: Pupils equal. Conjunctiva normal. HEENT: External appearance of nose and ears normal, oral cavity grossly normal. NECK: JVD unable to assess; masses not palpable. HEART: First and second heart sounds are normal; no edema. LUNGS: Respiratory rate increased, decreased breaths on some crackles. The patient has diminished breath sounds and the patient actively bronchospastic and wheezy with diffuse expiratory wheezes throughout the lung nair bilaterally. ABDOMEN: Soft, nontender, liver spleen not palpable, no masses palpable. PSYCH: Lethargic but arousable was able to answer some questionsl. NEUROLOGICAL: [Cranial nerves grossly intact; no facial asymmetry, moving all 4 limbs LYMPHATICS: No lymph nodes palpable in the axilla and neck - Labs CBC & Chem 7: 01/27/20 08:32 01/26/20 06:48 Labs: Abnormal Lab Results - Last 24 Hours (Table) 01/27/20 Range/Units 08:32 WBC 20.7 H (3.8-10.6) k/uL RBC 3.38 L (4.30-5.90) m/uL Hgb 9.7 L D (13.0-17.5) gm/dL Hct 30.1 L (39.0-53.0) % Neutrophils # 18.9 H (1.3-7.7) k/uL Lymphocytes # 0.8 L (1.0-4.8) k/uL Microbiology - Last 24 Hours (Table) 01/26/20 10:45 Acid Fast Bacilli Culture - Preliminary Bronchial Washings - Left 01/26/20 10:45 Fungal Culture - Preliminary Bronchial Washings - Left 01/26/20 10:45 Bronchial Washings Culture - Preliminary Bronchial Washings - Left 01/22/20 16:37 Blood Culture - Preliminary Blood No Growth after 96 hours Assessment and Plan Plan: 1 left upper lobe consolidating lung mass, measuring 3.7 cm along with hilar lymphadenopathy, abdominal lymphadenopathy, metastatic liver lesions in addition to axillary lymphadenopathy and the picture is highly suspicious for primary br onchogenic carcinoma. Bronchoscopy was done. Transbronchial biopsy on the left upper lobe was done. Awaiting final pathology. There is narrowing of the various segments of the lingular segment of the left upper lobe and various segments of the left lower lobe due to lung mass. Final pathologic results are not available yet. 2 acute COPD exacerbation with secondary shortness of breath, consider left lower lobe pneumonia. The patient also has a left-sided pleural effusion that was noted on previous CAT scan and PET scan imaging. 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 If negative, may need to consider a fine-needle aspiration of the liver. Patient is quite debilitated and weak. The patient is being considered for ECF for rehabilitation Continue bronchodilators Continue steroids Long-term prognosis poor baseline above-mentioned comorbidities. We'll be awaiting the results of the biopsy
[2020-01-27] MEDS ORDERED: PEG 3350-NA SULF,BICARB,CL/KCL 4,000 ML BOTTLE PO ONE (16:00)
--- NOTE | 2020-01-27 17:06 | P.CONS ---
History of Present Illness - Reason for Consult Consult date: 01/27/20 GI bleed Requesting physician: Roc Cunningham - Chief Complaint Shortness of breath - History of Present Illness 79-year-old male with medical history significant for hyperlipidemia, bladder cancer, COPD, recent diagnosis of lung cancer with metastases to the liver who presented to the hospital due to complaints of increasing shortness of breath. Currently the patient is receiving treatment for pneumonia, and acute exacerbation of his COPD and for further evaluation of his lung CDI. Patient underwent bronchoscopy yesterday. Subsequently he has developed multiple e pisodes of jossue colored bowel movements and black bowel movements. He denies any prior episode of GI bleed. He denies any use of NSAID medications. He only will take an aspirin a very occasionally for pain. He denies any prior EGD or colonoscopy. He is currently denying any abdominal pain. Patient was found to have a 3 g drop in his hemoglobin from 12.7 yesterday down to 9.7 today. Review of Systems REVIEW OF SYSTEMS: CONSTITUTIONAL: Denies any fevers, chills, but he is reporting fatigue. CARDIOVASCULAR: Denies any chest pain, palpitations high or low blood pressures RESPIRATORY: Denies any hemoptysis but the patient does report shortness of breath and cough. GENITOURINARY: No dysuria or hematuria, but he does have problems voiding. MUSCULOSKELETAL: No weakness reported. SKIN: Denies any new rashes or lesions, jaundice or pallor. PSYCHIATRIC: Denies any depression or anxiety. NEUROLOGY: Denies headache, denies any new focal deficits. EARS/NOSE/THROAT: No recent hearing change, congestion, nasal discharge or sore throat. EYES: No pain in eyes, discharge or change in vision. GASTROINTESTINAL: As per HPI. Past Medical History Past Medical History: Cancer, COPD, Eye Disorder, Hyperlipidemia, Liver Disease, Pneumonia Additional Past Medical History / Comment(s): bladder CA 2010, liver mass and lung nodule}new in work up History of Any Multi-Drug Resistant Organisms: None Reported Past Surgical History: No Surgical Hx Reported Past Anesthesia/Blood Transfusion Reactions: No Reported Reaction Additional Past Anesthesia/Blood Transfusion Reaction / Comm: unknown Past Psychological History: No Psychological Hx Reported Smoking Status: Former smoker Past Alcohol Use History: None Reported Additional Past Alcohol Use History / Comment(s): since age 20 Past Drug Use History: None Reported Additional History: Family history: Reviewed with the patient and noncontributory to current medical presentation. Medications and Allergies Home Medications Medication Instructions Recorded Confirmed Type Aspirin 325 mg PO HS 01/16/20 01/22/20 History Atorvastatin [Lipitor] 20 mg PO HS 01/16/20 01/22/20 History Cholecalciferol [Vitamin D3 (25 1,000 unit PO HS 01/16/20 01/22/20 History Mcg = 1000 Iu)] Fenofibrate Nanocrystallized 160 mg PO DAILY 01/16/20 01/22/20 History [Tricor] Finasteride [Proscar] 5 mg PO DAILY 01/16/20 01/22/20 History Lisinopril-Hctz 20-12.5 mg 1 tab PO QAM 01/16/20 01/22/20 History [Zestoretic 20-12.5] Magnesium 250 mg PO HS 01/16/20 01/22/20 History Melatonin 5 mg PO HS 01/16/20 01/22/20 History amLODIPine [Norvasc] 5 mg PO QAM 01/16/20 01/22/20 History Dorzolamide HCl/Pf [Dorzolamide 2% 1 drop LEFT EYE BID 01/21/20 01/22/20 History Eye Drop] Ibuprofen/Diphenhydramine HCl 1 cap PO HS 01/21/20 01/22/20 History [Advil Pm Liqui-Gels] Brimonidine Tartrate [Alphagan P 1 drops LEFT EYE BID 01/22/20 01/22/20 History 0.2% Ophth Soln] Latanoprost [Xalatan 0.005%] 1 drop LEFT EYE HS 01/22/20 01/22/20 History Multivitamins, Thera [Multivitamin 1 tab PO DAILY 01/22/20 01/22/20 History (formulary)] Allergies Allergy/AdvReac Type Severity Reaction Status Date / Time No Known Allergies Allergy Verified 01/22/20 14:24 Physical Exam Vitals: Vital Signs Temp Pulse Pulse Resp BP Pulse Ox 01/27/20 07:53 108 H 01/27/20 07:41 112 H 95 01/27/20 05:00 98.8 F 117 H 19 109/66 95 01/26/20 21:47 104 H 01/26/20 21:32 100 01/26/20 20:53 97.9 F 110 H 19 125/68 95 01/26/20 16:00 99 16 95 01/26/20 13:34 102 H 01/26/20 13:24 100 01/26/20 12:00 97.3 F L 103 H 16 143/76 95 01/26/20 10:33 102 H 01/26/20 10:23 85 Intake and Output 01/26/20 01/27/20 01/27/20 21:59 06:59 14:59 Intake Total Output Total Balance Intake: Intake, IV Titration Amount Piperacillin-Tazobactam 3 .375 gm In Sodium Chloride 0.9% 100 ml @ 25 mls/hr IVPB Q12H [facility] Rx# :[id number] Sodium Chloride 0.9% 1, 000 ml @ 75 mls/hr IV . [id number] YOVANY Rx#:[id number] Oral Output: Urine Other: Voiding Method # Voids # Bowel Movements On physical examination, patient appears comfortable in no apparent distress. HEAD: Normocephalic, atraumatic. EYES: No scleral icterus. No conjunctival injection. MOUTH: No lesions, tongue midline. NECK: Trachea midline, no gross abnormalities. CHEST: No respiratory distress, decreased air entry in all lung nair. HEART: S1-S2 appreciated. ABDOMEN: Soft, thin and nontender. Bowel sounds are positive. No organomegaly. No guarding or rigidity. EXTREMITIES: No pedal edema. SKIN: No rashes, no jaundice. NEUROLOGIC: Alert and oriented x3. No focal deficits. Results CBC & Chem 7: 01/27/20 08:32 01/26/20 06:48 Labs: Abnormal Lab Results - Last 24 Hours (Table) 01/27/20 Range/Units 08:32 WBC 20.7 H (3.8-10.6) k/uL RBC 3.38 L (4.30-5.90) m/uL Hgb 9.7 L D (13.0-17.5) gm/dL Hct 30.1 L (39.0-53.0) % Neutrophils # 18.9 H (1.3-7.7) k/uL Lymphocytes # 0.8 L (1.0-4.8) k/uL Microbiology - Last 24 Hours (Table) 01/22/20 16:37 Blood Culture - Preliminary Blood No Growth after 96 hours Chest x-ray: report reviewed (Chest x-ray with emphysematous changes in the lungs as well as decreased lung volumes in the left side and suspicion for a left lung mass.) Assessment and Plan (1) Anemia associated with acute blood loss Narrative/Plan: 79-year-old male with multiple medical comorbidities including metastatic lung CA with testes to the liver who presented with shortness of breath and is currently being treated for exacerbation of COPD and pneumonia. Patient was on the medical floor developed multiple episodes of jossue colored stool and dark bowel movements. Patient had an acute fall in his hemoglobin from 12.7-9.7. No nausea, vomiting, coffee-ground emesis. No history of excessive NSAIDs use. No history of prior endoscopic evaluation or GI bleed. Unclear if symptoms are secondary to peptic ulcer disease, esophagitis/gastritis, AVM, diverticular bleed or other etiology. Current Visit: Yes Status: Acute Code(s): D62 - ACUTE POSTHEMORRHAGIC ANEMIA SNOMED Code(s): 918996559 (2) Melena Current Visit: Yes Status: Acute Code(s): K92.1 - MELENA SNOMED Code(s): 7182598 (3) GI bleed Current Visit: Yes Status: Acute Code(s): K92.2 - GASTROINTESTINAL HEMORRHAGE, UNSPECIFIED SNOMED Code(s): 55531544 Plan: Supportive care Clear liquid diet Nothing by mouth after midnight GoLYTELY bowel prep ordered Dulcolax bowel prep ordered Plan for EGD and colonoscopy for further evaluation tomorrow Avoid NSAID medications Monitor H&H every 6 hours and transfuse as needed Thank you for allowing us to participate in the care of this patient we will continue to follow
[2020-01-27 18:00] LABS: HGB 9.2 gm/dL (13.0-17.5); MCH 28.6 pg (25.0-35.0); MCHC 31.8 g/dL (31.0-37.0); Mean Platelet Volume 7.8; Platelet Count 291 k/uL (150-450); RBC 3.22 m/uL (4.30-5.90); RDW 12.6 % (11.5-15.5); WBC 17.2 k/uL (3.8-10.6)
[2020-01-27] MEDS ORDERED: BISACODYL 5 MG TABLET.DR PO ONE (18:00)
[2020-01-27] MEDS: MAGNESIUM OXIDE 400 MG TAB PO SCH (19:50)
[2020-01-27] MEDS: MELATONIN 5 MG TABLET PO SCH (19:50)
[2020-01-27] MEDS: CHOLECALCIFEROL 1,000 UNIT TAB PO SCH (19:51)
[2020-01-27] MEDS: LATANOPROST 0.005% OPHTH DROPS 2.5 ML BTL LEFT EYE SCH (19:51)
[2020-01-27] MEDS: ATORVASTATIN 20 MG TAB PO SCH (19:51)
--- NOTE | 2020-01-27 20:58 | P.PN ---
Progress Note - Text Progress Note Date: 01/27/20 Chief Complaint: Short of breath History of presenting complaint: This is a pleasant 79-year-old patient of Dr. gonzalez. Chronic stable medical conditions include hyperlipidemia, bladder cancer. Also recently reported of a liver mass and lung nodule. Patient presented to ER with increasing short of breath. Not eating drinking much. Did not take his medications for about a week. Himself the patient other times not able to give much of a history. Patient is reportedly ex-smoker. Rather lethargic and drowsy but able to answer some questions. No family the bedside. Additionally outpatient workup including computed tomography scan was suggestive of primary lung malignancy with hepatic metastasis Admitted with possible obstructive pneumonia, metabolic encephalopathy, acute kidney injury. Bronchoscopy-compression of left lingular and lower lobe and paralysis of left vocal cord Today-up in a chair. Some shortness of breath. Did tolerate some diet. Patient's sister is visiting. Review of systems: Was attempted for constitutional, cardiovascular, GI, pulmonary. relevant finding as above Active Medications Albuterol/Ipratropium (Duoneb 0.5 Mg-3 Mg/3 Ml Soln) 3 ml INHALATION RT-TID [facility] Last Admin: 01/27/20 19:59 Dose: 3 ml Documented by: Albuterol/Ipratropium (Duoneb 0.5 Mg-3 Mg/3 Ml Soln) 3 ml INHALATION RT-Q2H PRN PRN Reason: Shortness Of Breath Or Wheezing Last Admin: 01/23/20 23:38 Dose: 3 ml Documented by: Amlodipine Besylate (Norvasc) 5 mg PO [facility] Last Admin: 01/27/20 12:11 Dose: 5 mg Documented by: Atorvastatin Calcium (Lipitor) 20 mg PO [facility] Last Admin: 01/27/20 19:51 Dose: 20 mg Documented by: Brimonidine Tartrate (Alphagan P 0.2% Ophth Soln) 1 drops LEFT EYE BID [facility] Last Admin: 01/27/20 19:51 Dose: 1 drops Documented by: Cholecalciferol (Vitamin D3 (25 Mcg = 1000 Iu)) 1,000 unit PO [facility] Last Admin: 01/27/20 19:51 Dose: 1,000 unit Documented by: Dorzolamide HCl (Trusopt) 1 drops LEFT EYE BID [facility] Last Admin: 01/27/20 19:51 Dose: 1 drops Documented by: Fenofibrate (Lofibra) 160 mg PO DAILY [facility] Last Admin: 01/27/20 12:11 Dose: 160 mg Documented by: Finasteride (Proscar) 5 mg PO DAILY [facility] Last Admin: 01/27/20 12:11 Dose: 5 mg Documented by: Piperacillin Sod/Tazobactam (Sod 3.375 gm/ Sodium Chloride) 100 mls @ 25 mls/hr IVPB Q12H [facility] Last Admin: 01/27/20 17:18 Dose: 25 mls/hr Documented by: Sodium Chloride (Saline 0.9%) 1,000 mls @ 75 mls/hr IV .[id number] [facility] Last Admin: 01/27/20 16:03 Dose: 75 mls/hr Documented by: Latanoprost (Xalatan 0.005%) 1 drops LEFT EYE [facility] Last Admin: 01/27/20 19:51 Dose: 1 drops Documented by: Magnesium Oxide (Mag-Ox) 400 mg PO [facility] Last Admin: 01/27/20 19:50 Dose: 400 mg Documented by: Melatonin (Melatonin) 5 mg PO [facility] Last Admin: 01/27/20 19:50 Dose: 5 mg Documented by: Methylprednisolone Sodium Succinate (Solu-Medrol) 40 mg IV Q8HR [facility] Last Admin: 01/27/20 07:37 Dose: 40 mg Documented by: Miscellaneous Information (Pneumonia Protocol Utilized) 1 each PO ONCE PRN PRN Reason: Per Protocol Multivitamins (Theragran) 1 each PO DAILY [facility] Last Admin: 01/27/20 12:10 Dose: 1 each Documented by: Pantoprazole Sodium (Protonix) 40 mg IVP BID [facility] Last Admin: 01/27/20 19:50 Dose: 40 mg Documented by: Tamsulosin HCl (Flomax) 0.4 mg PO PC-BRKFST [facility] Last Admin: 01/27/20 12:10 Dose: 0.4 mg Documented by: Physical examination: VITAL SIGNS: 97.6, 107, 20, 108/66, 96% on 3 L GENERAL: Sitting upon a chair, awake a bit tired EYES: Pupils equal. Conjunctiva normal. HEENT: External appearance of nose and ears normal, oral cavity grossly normal. Hard of hearing NECK: JVD unable to assess; masses not palpable. HEART: First and second heart sounds are normal; no edema. LUNGS: Respiratory rate increased, decreased breaths sounds. ABDOMEN: Soft, nontender, liver spleen not palpable, no masses palpable. PSYCH: Answering questions today. INVESTIGATIONS, reviewed in the clinical context: White count 17.2 hemoglobin 9.2 platelets 291 Previous testing White count 13.6 hemoglobin 14 platelets 304 potassium 6.2 bun 84 creatinine 4.53 calcium 10.3 Patient's creatinine was 2 on December 18 and 2.6 on December 14 EKG tracing personally reviewed by me-normal sinus rhythm Chest x-ray film personally reviewed by me--shows left upper lobe consolidation and also fluid in the fissure and venous prominence. UA positive: Urine culture negative Bronchoscopy-compression of left lingular and lower lobe and paralysis of left vocal cord Assessment: -Compression of left lingular and left lower lobe from extrinsic compression- pulmonary -Left vocal cord paralysis -Post obstructive pneumonia suspected -Acute COPD exacerbation in an ex-smoker -Acute metabolic encephalopathy from improved -Chronic kidney disease with a baseline creatinine of 2-2.6 that is stage 3/4 -Acute kidney injury likely ATN from pneumonia, patient is also on lisinopril. -Hyperkalemia in the setting of acute renal improved -BPH -Hyperlipidemia -Essential hypertension -Acute UTI from cystitis Plan: Discussed with the patient and assisted the bedside. A few off for treatment. At this point patient is not keen to talk about it. His main focus is to go back to the rehab place for his is also admitted. Also did discuss with Dr. Arroyo. We'll wait for pathology to come back, That is nonproductive though the group schedule a liver biopsy. Total time spent today was about 40 minutes with over 25 minutes of discussion -
[2020-01-28 00:48] LABS: HCT 28.5 % (39.0-53.0); HGB 9.1 gm/dL (13.0-17.5); MCH 28.5 pg (25.0-35.0); MCHC 32.1 g/dL (31.0-37.0); MCV 88.8 fL (80.0-100.0); Mean Platelet Volume 7.5; Platelet Count 320 k/uL (150-450); RBC 3.21 m/uL (4.30-5.90); RDW 12.7 % (11.5-15.5); WBC 19.2 k/uL (3.8-10.6)
[2020-01-28] MEDS: PIPERACILLIN-TAZOBACTAM 3.375 GM in SODIUM CHLORIDE 0.9% 100 ML IVPB SCH ×2 (05:58→17:08)
[2020-01-28] MEDS: MULTIVITAMINS, THERA 1 EACH TAB PO SCH (07:18)
[2020-01-28] MEDS: IPRATROPIUM-ALBUTEROL 3 ML NEB INHALATION SCH ×3 (07:30→18:48)
[2020-01-28 07:34] LABS: Basophils % (A) 0 %; Eosinophils % (A) 0 %; HCT 29.8 % (39.0-53.0); HGB 9.3 gm/dL (13.0-17.5); Lymphocytes # (A) 0.7 k/uL (1.0-4.8); Lymphocytes % (A) 3 %; MCH 27.9 pg (25.0-35.0); MCHC 31.3 g/dL (31.0-37.0); MCV 88.9 fL (80.0-100.0); Mean Platelet Volume 7.4; Monocytes # (A) 0.7 k/uL (0-1.0); Monocytes % (A) 3 %; Neutrophils % (A) 93 %; Platelet Count 338 k/uL (150-450); RBC 3.35 m/uL (4.30-5.90); RDW 12.5 % (11.5-15.5); WBC 20.5 k/uL (3.8-10.6)
[2020-01-28] MEDS: DORZOLAMIDE HCL 2% DROPS 10 ML BTL LEFT EYE SCH ×2 (08:06→20:37)
[2020-01-28] MEDS: TAMSULOSIN 0.4 MG CAP.ER.24H PO SCH (08:06)
[2020-01-28] MEDS: FINASTERIDE 5 MG TAB PO SCH (08:06)
[2020-01-28] MEDS: amLODIPine 5 MG TAB PO SCH (08:06)
[2020-01-28] MEDS: FENOFIBRATE 160 MG TAB PO SCH (08:06)
[2020-01-28] MEDS: BRIMONIDINE TARTRATE 0.2% DROPS 5 ML BTL LEFT EYE SCH ×2 (08:06→20:37)
[2020-01-28] MEDS: PANTOPRAZOLE 40 MG/10 ML VIAL IVP SCH ×2 (08:07→20:37)
[2020-01-28] MEDS: methylPREDNISolone SOD SUCCI 40 MG/ML 1 ML VIAL IV SCH ×2 (08:07→17:08)
--- NOTE | 2020-01-28 11:41 | P.CONS ---
History of Present Illness - Reason for Consult Consult date: 01/28/20 Hx bladder ca, new lung, liver masses Requesting physician: Roc Cunningham - Chief Complaint SOB - History of Present Illness Mr. Louis is a very pleasantly confused male pt being treated medically for HTN, hyperlipidemia and BPH who we have been asked to see because of concerning findings on imaging, highly suggestive of malignancy. Pt has history for what sounds like a superficial bladder cancer in 2005, [place] Patient had a CT of the chest 12/19 due to a persistent cough. This revealed adenopathy, left upper lobe consolidation, scattered pulmonary nodules and liver lesions. This led to a PET scan which showed avid lymphadenopathy above and below the diaphragm, in the liver, bilateral adrenal masses, and even a questionable area in the left ilium. Patient is currently admitted for progressive shortness of breath. He has had bronch and biopsy with Pulmonary. He has had a 5 g drop in hemoglobin since admission, does report maroon-colored stools, he is been seen by gastroenterology with plans for endoscopy in the a.m. Patient denies headaches, dizziness, unsteadiness on his feet, hemoptysis, chest pain, palpitations, abdominal pain or cramping, nausea, vomiting, acute changes in bowel or bladder habits, he does report the very dark stool recently, denies recent hematuria or difficulty emptying the bladder. He is not in any pain, he just ambulated with PT using a walker, he lives at home with his . Review of Systems 14 point ROS difficult to obtain, pt mildly confused Past Medical History Past Medical History: Cancer, COPD, Eye Disorder, Hyperlipidemia, Liver Disease, Pneumonia Additional Past Medical History / Comment(s): bladder CA 2010, liver mass and lung nodule}new in work up History of Any Multi-Drug Resistant Organisms: None Reported Past Surgical History: No Surgical Hx Reported Past Anesthesia/Blood Transfusion Reactions: No Reported Reaction Additional Past Anesthesia/Blood Transfusion Reaction / Comm: unknown Past Psychological History: No Psychological Hx Reported Smoking Status: Former smoker Past Alcohol Use History: None Reported Additional Past Alcohol Use History / Comment(s): since age 20 Past Drug Use History: None Reported - Past Family History Father Family Medical History: Unable to Obtain Medications and Allergies Home Medications Medication Instructions Recorded Confirmed Type Aspirin 325 mg PO HS 01/16/20 01/22/20 History Atorvastatin [Lipitor] 20 mg PO HS 01/16/20 01/22/20 History Cholecalciferol [Vitamin D3 (25 1,000 unit PO HS 01/16/20 01/22/20 History Mcg = 1000 Iu)] Fenofibrate Nanocrystallized 160 mg PO DAILY 01/16/20 01/22/20 History [Tricor] Finasteride [Proscar] 5 mg PO DAILY 01/16/20 01/22/20 History Lisinopril-Hctz 20-12.5 mg 1 tab PO QAM 01/16/20 01/22/20 History [Zestoretic 20-12.5] Magnesium 250 mg PO HS 01/16/20 01/22/20 History Melatonin 5 mg PO HS 01/16/20 01/22/20 History amLODIPine [Norvasc] 5 mg PO QAM 01/16/20 01/22/20 History Dorzolamide HCl/Pf [Dorzolamide 2% 1 drop LEFT EYE BID 01/21/20 01/22/20 History Eye Drop] Ibuprofen/Diphenhydramine HCl 1 cap PO HS 01/21/20 01/22/20 History [Advil Pm Liqui-Gels] Brimonidine Tartrate [Alphagan P 1 drops LEFT EYE BID 01/22/20 01/22/20 History 0.2% Ophth Soln] Latanoprost [Xalatan 0.005%] 1 drop LEFT EYE HS 01/22/20 01/22/20 History Multivitamins, Thera [Multivitamin 1 tab PO DAILY 01/22/20 01/22/20 History (formulary)] Allergies Allergy/AdvReac Type Severity Reaction Status Date / Time No Known Allergies Allergy Verified 01/22/20 14:24 Physical Exam Vitals: Vital Signs Temp Pulse Pulse Resp BP Pulse Ox 01/28/20 08:09 98.3 F 01/28/20 07:40 102 H 01/28/20 07:30 100 01/28/20 05:00 96.1 F L 103 H 16 142/72 96 01/27/20 21:00 97.4 F L 82 16 116/64 95 01/27/20 20:13 107 H 01/27/20 20:02 98 01/27/20 19:59 107 H 01/27/20 16:00 107 H 20 96 01/27/20 13:24 104 H 01/27/20 13:11 102 H Intake and Output 01/27/20 01/28/20 01/28/20 22:59 06:59 14:59 Intake Total 1200 Output Total 2200 900 600 Balance -1000 -900 -600 Intake: Oral 1200 Output: Urine 2200 900 600 Straight 900 Other: Voiding Method Indwelling Catheter Indwelling Catheter # Voids 2 # Bowel Movements 2 - Constitutional General appearance: average body habitus, cooperative, no acute distress - EENT Eyes: anicteric sclerae, EOMI ENT: hard of hearing, normal oropharynx - Neck Neck: no lymphadenopathy - Respiratory Respiratory: bilateral: CTA - Cardiovascular nail clubbing Rhythm: regular Heart sounds: normal: S1, S2 leg Peripheral Edema: bilateral: None - Gastrointestinal General gastrointestinal: no absent bowel sounds, no decreased bowel sounds, no distended, no hepatomegaly, no hyperactive bowel sounds, normal bowel sounds, no organomegaly, no rigid, no scaphoid, soft, no splenomegaly, no tenderness, no umbilical hernia, no ventral hernia - Integumentary Integumentary: pale - Neurologic Neurologic: CNII-XII intact - Musculoskeletal Musculoskeletal: generalized weakness - Psychiatric Psychiatric: A&O x's 3 (recall of remote events is not very accurate, requires a lot of questioning to get to answers), appropriate affect Results CBC & Chem 7: 01/28/20 06:41 01/26/20 06:48 Labs: Abnormal Lab Results - Last 24 Hours (Table) 01/27/20 01/28/20 01/28/20 Range/Units 17:30 00:11 06:41 WBC 17.2 H 19.2 H 20.5 H (3.8-10.6) k/uL RBC 3.22 L 3.21 L 3.35 L (4.30-5.90) m/uL Hgb 9.2 L 9.1 L 9.3 L (13.0-17.5) gm/dL Hct 29.0 L 28.5 L 29.8 L (39.0-53.0) % Neutrophils # 19.0 H (1.3-7.7) k/uL Lymphocytes # 0.7 L (1.0-4.8) k/uL Microbiology - Last 24 Hours (Table) 01/26/20 10:45 Gram Stain - Preliminary Bronchial Washings - Left Bronchial Washings Culture - Preliminary 01/22/20 16:37 Blood Culture - Preliminary Blood No Growth after 120 hours 01/26/20 10:45 Acid Fast Bacilli Culture - Preliminary Bronchial Washings - Left 01/26/20 10:45 Fungal Culture - Preliminary Bronchial Washings - Left Comments: reviewed procedure notes reviewed report CT chest 12/19 reviewed report PET scan 01/15 Chest x-ray: report reviewed Assessment and Plan (1) Melena Narrative/Plan: GI has seen pt and plans for endo due to significant drop pin Hgb since admit. Current Visit: Yes Status: Acute Priority: High Code(s): K92.1 - MELENA SNOMED Code(s): 8994101 (2) Lung mass Current Visit: Yes Status: Acute Priority: High Code(s): R91.8 - OTHER NONSPECIFIC ABNORMAL FINDING OF LUNG FIELD SNOMED Code(s): 991289125 (3) Liver lesion Current Visit: Yes Status: Acute Priority: High Code(s): K76.9 - LIVER DISEASE, UNSPECIFIED SNOMED Code(s): 561996318 (4) Lymphadenopathy Current Visit: Yes Status: Acute Priority: High Code(s): R59.1 - GENERALIZED ENLARGED LYMPH NODES SNOMED Code(s): 52168742 (5) Normocytic normochromic anemia Narrative/Plan: Due to acute loss? H&H already ordered Q6, endo plans CKD noted as far back as 2013 Anemia work up Current Visit: Yes Status: Acute Priority: High Code(s): D64.9 - ANEMIA, UNSPECIFIED SNOMED Code(s): 61377939 Plan: Pt is s/p bronch and biopsy, path pending. It was discussed with the pt that most likely this is a new primary malignancy and not his bladder cancer diagnosed in 2005. He does not recall any specific treatment so, most likely superficial and treated via TURBT. Explained that options for treatment cannot be discussed until pathology is reported and staging completed. Pt seemed to understand the plan so far. Will request staging brain imaging once cr improved. Attests: I have performed history and physical examination of pt and developed impression and plan of care. Discussed with dictator. I agree with dictator's note, documented as a scribe.
[2020-01-28] MEDS ORDERED: LACTATED RINGERS 700 ML IV ONE (13:28)
--- NOTE | 2020-01-28 14:10 | P.PCN ---
Date of Procedure: 01/28/20 Procedure(s) Performed: Brief history: Patient is a pleasant 79-year-old white male, admitted hospital with weakness and shortness of breath. Workup in the hospital revealed lesions in the liver and the lung suspicious for neoplasm. He underwent a biopsy results of which is still pending. While in the hospital he dropped his hemoglobin by 5 g has been having maroon colored stools and hence he is scheduled for an elective upper endoscopy as well as colonoscopy Procedure performed: Esophagogastroduodenoscopy Colonoscopy with snare polypectomy Preoperative diagnosis: Acute GI bleed/anemia Anesthesia: MAC Procedure: After informed consent was obtained from the patient was brought into the endoscopy unit and IV sedation was administered by anesthesia under continuous monitoring. Initially upper endoscopy was done. The Olympus GF 160 video endoscope was inserted inserted into the mouth and esophagus intubated without any difficulty and was gradually advanced into the stomach and duodenum and carefully examined. The bulb and second part of the duodenum had mild duodenitis but no ulcerations seen. No active bleeding noted.. The scope was then withdrawn into the stomach adequately insufflated with air and upon careful examination the antrum and body, cardia and fundus appeared normal. The scope was then withdrawn into the esophagus. Small sliding Hiatal hernia noted The GE junction was located at 40 cm to the incisors. It appeared regular with no erythema erosions or ulcerations. Rest of the esophagus appeared normal. Patient tolerated the procedure well. At this time the patient continued to remain sedation. Initial digital rectal examination was normal. Olympus CF 160 video colonoscope was then inserted into the rectum and gradually advanced to the cecum without any difficulty. Careful examination was performed as the scope was gradually being withdrawn. The prep was excellent. The cecum, appeared normal. The ascending colon just proximal to the ileocecal valve there was a 2.5 cm broad-based polyp that was removed by piecemeal snare polypectomy and complete polypectomy, Mr. Rest of the ascending colon, transverse colon, descending colon, sigmoid colon and rectum appeared normal. Scattered left-sided diverticulosis seen. Retroflexion was performed in the rectum and no lesions were noted. Patient tolerated the procedure well. Impression: 1. Upper endoscopy revealed mild duodenitis and small hiatal hernia. No evidence of peptic ulcer disease 2. Colonoscopy revealed 2.5 cm broad-based ascending colon polyp status post polypectomy and scattered sigmoidal diverticulosis Recommendations: Findings of this examination were discussed with the patient as well as his family. He was advised to follow with the biopsy results. Diet will be resumed today.
[2020-01-28] MEDS: SODIUM CHLORIDE 0.9% 1,000 ML IV SCH ×2 (15:02→17:08)
--- NOTE | 2020-01-28 15:24 | P.PN ---
Subjective Progress Note Date: 01/28/20 Principal diagnosis: Left upper lobe consolidating lung mass This is a 79-year-old white male, 45-eftq-aard smoker, quit smoking in 2000. Patient was recently seen by his primary care physician and he was complaining of cough and congestion. He was also complaining of some shortness of breath, fatigue, malaise, he had no symptoms of weight loss. No symptoms of hemoptysis, and no chest pain. Chest x-ray in the office was suggestive of pneumonia involving the lingula, however it was extensive and a CT of the chest was ordered. His CT of the chest Showed significant abnormality in the lingula, suggestive of possible malignancy and postobstructive pneumonitis. Also showed small left pleural effusion, and opacities on the liver suspicious for metastatic disease involving the liver. Patient has mostly chest congestion, voice hoarseness, denies any weight loss, denies any hemoptysis, denies any chest pain, denies any nausea vomiting or abdominal pain. Past medical history is significant for hypercholesterolemia, vitamin D deficiency, coronary arteriosclerosis, benign essential hypertension, COPD, esophageal stricture, bladder cancer in situ treated. PFT showed FEV1 of 42%.Patient is also on updrafts. According to the patient is feeling a bit better, breathing easier. And a follow-up chest x-ray was ordered to be done today. As part of further workup, a PET scan was done that showed a consolidating mass in the left upper lobe measuring 3.7 cm in addition to increased metabolic activity within the axillary areas, hilar areas and multiple hepatic lesions consistent with hepatic metastases. Overall picture is very much consistent with metastatic carcinoma probably of a lung primary. For now, the patient is hoarse. The patient is bronchospastic. The patient is wheezy. The patient shortness of breath. He was being planned that the patient was supposed to have a outpatient fine-needle aspirate of the liver lesion however this did not get done. Currently the patient is being treated as a routine community-acquired pneumonia with a combination of Rocephin and Zithromax. He is a poor historian. He is quite lethargic also. the patient is seen today in 01/25/2020 in follow-up on the regular medical floor. He is currently sitting up in bed. More awake and alert. Denies any worsening shortness of breath. Loose nonproductive cough. No chills or night sweats.maintaining O2 saturations in the 90s on 3 L/m per nasal cannula.blood culture reveals no growth. Urine culture reveals no growth.white count 17.1. Hemoglobin 12.7. Sodium 136. Potassium 6.3. Bicarb 16. Creatinine 2.95.he remains on DuoNeb inhalations,IV Solu-Medrol and Zosyn. The patient is seen today 01/28/2020 in follow-up on the regular medical floor. He did undergo bronchoscopy with biopsies and pathology is pending. He was found to have cytomegalovirus and respiratory syncytial virus. Cultures pending. Today he had undergone colonoscopy with flare polypectomy. He is currently resting comfortably in bed. No significant shortness of breath. Maintaining O2 saturations in the 90s on room air. He is afebrile. Hemodynamically stable. White count 20.5. Hemoglobin 9.3. He remains on Zosyn, bronchodilators, solu- Medrol. Objective - Vital Signs Vital signs: Vital Signs Temp 97.4 F L 01/28/20 14:40 Pulse 99 01/28/20 14:40 Resp 16 01/28/20 14:40 BP 94/46 01/28/20 14:40 Pulse Ox 92 L 01/28/20 14:40 Intake & Output 01/27/20 01/28/20 01/28/20 18:59 06:59 18:59 Intake Total 2480 240 900 Output Total 3000 900 600 Balance -520 -660 300 Weight 71.5 kg Intake: IV 300 Intake, IV Titration 800 600 Amount Piperacillin-Tazobactam 3 200 .375 gm In Sodium Chloride 0.9% 100 ml @ 25 mls/hr IVPB Q12H [facility] Rx# :[id number] Sodium Chloride 0.9% 1, 600 600 000 ml @ 75 mls/hr IV . [id number] [facility] Rx#:[id number] Oral 1680 240 Output: Urine 3000 900 600 Straight 900 Other: Voiding Method Indwelling Catheter Indwelling Catheter Indwelling Catheter # Voids 30 2 # Bowel Movements 2 6 - Exam GENERAL: Awake, alert. Pleasant 79-year-old gentleman, on room air. EYES: Pupils equal. Conjunctiva normal. HEENT: External appearance of nose and ears normal, oral cavity grossly normal. NECK: JVD unable to assess; masses not palpable. HEART: First and second heart sounds are normal; no edema. LUNGS: Respiratory rate increased, decreased breaths on some crackles, few scattered rhonchi. ABDOMEN: Soft, nontender, liver spleen not palpable, no masses palpable. PSYCH: Lethargic but arousable was able to answer some questionsl. NEUROLOGICAL: Cranial nerves grossly intact; no facial asymmetry, moving all 4 limbs LYMPHATICS: No lymph nodes palpable in the axilla and neck - Labs CBC & Chem 7: 01/28/20 06:41 01/26/20 06:48 Labs: Abnormal Lab Results - Last 24 Hours (Table) 01/26/20 01/27/20 01/28/20 Range/Units 10:45 17:30 00:11 WBC 17.2 H 19.2 H (3.8-10.6) k/uL RBC 3.22 L 3.21 L (4.30-5.90) m/uL Hgb 9.2 L 9.1 L (13.0-17.5) gm/dL Hct 29.0 L 28.5 L (39.0-53.0) % Neutrophils # (1.3-7.7) k/uL Lymphocytes # (1.0-4.8) k/uL Viral Test See Below H 01/28/20 Range/Units 06:41 WBC 20.5 H (3.8-10.6) k/uL RBC 3.35 L (4.30-5.90) m/uL Hgb 9.3 L (13.0-17.5) gm/dL Hct 29.8 L (39.0-53.0) % Neutrophils # 19.0 H (1.3-7.7) k/uL Lymphocytes # 0.7 L (1.0-4.8) k/uL Viral Test Microbiology - Last 24 Hours (Table) 01/26/20 10:45 Gram Stain - Preliminary Bronchial Washings - Left Bronchial Washings Culture - Preliminary 01/22/20 16:37 Blood Culture - Preliminary Blood No Growth after 120 hours 01/26/20 10:45 Acid Fast Bacilli Culture - Preliminary Bronchial Washings - Left 01/26/20 10:45 Fungal Culture - Preliminary Bronchial Washings - Left Assessment and Plan Assessment: 1 left upper lobe consolidating lung mass, measuring 3.7 cm along with hilar lymphadenopathy, abdominal lymphadenopathy, metastatic liver lesions in addition to axillary lymphadenopathy and the picture is highly suspicious for primary bronchogenic carcinoma. Status post bronchoscopy with biopsies Pathology pending. Cultures pending. Positive for cytomegalovirus and respiratory syncytial virus. 2 acute COPD exacerbation with secondary shortness of breath, consider left lower lobe pneumonia. The patient also has a left-sided pleural effusion that was noted on previous CAT scan and PET scan imaging. 3 severe chronic obstructive pulmonary disease, with a possibility of a postobstructive pneumonia 4 carcinoma of urinary bladder, superficial 5 coronary arteriosclerosis 6 essential hypertension 7 glaucoma 8 hyperlipidemia 9 pure hypercholesterolemia 10 stricture of esophagus 11 hoarseness secondary to possible vocal cord paralysis 12 hyperkalemia 13 acute on chronic renal failure Plan The patient was seen and evaluated by Dr. Arroyo. H is status post bronchoscopy with BAL and biopsies. Pathology pending. Cultures pending. Irises positive for cytomegalovirus and rapid respiratory syncytial virus. Continued on bronchodilators, steroids, Zosyn. The patient also had undergone colonoscopy with flare polypectomy today. He is scheduled for a biopsy of the liver on 01/29/2020 after being off his aspirin for 1 full week per interventional radiology. We will continue to follow and make further recommendations based on his clinical status. I, the cosigning physician, performed a history & physical examination of the p atient. Lungs sounds with faint end expiratory wheeze, bilateral scattered rhonchi. Maintaining good O2 saturations in the 90s on room air. I discussed the assessment and plan of care with my nurse practitioner, Debbie Suggs. I attest to the above note as dictated by her.
[2020-01-28 15:42] LABS: % Iron Saturation 31.85 (15.00-50.00)
--- NOTE | 2020-01-28 16:49 | P.PN ---
Progress Note - Text Progress Note Date: 01/28/20 Chief Complaint: Short of breath History of presenting complaint: This is a pleasant 79-year-old patient of Dr. gonzalez. Chronic stable medical conditions include hyperlipidemia, bladder cancer. Also recently reported of a liver mass and lung nodule. Patient presented to ER with increasing short of breath. Not eating drinking much. Did not take his medications for about a week. Himself the patient other times not able to give much of a history. Patient is reportedly ex-smoker. Rather lethargic and drowsy but able to answer some questions. No family the bedside. Additionally outpatient workup including computed tomography scan was suggestive of primary lung malignancy with hepatic metastasis Admitted with possible obstructive pneumonia, metabolic encephalopathy, acute kidney injury. Bronchoscopy-compression of left lingular and lower lobe and paralysis of left vocal cord. Also had maroon stools. Drop hemoglobin. Today-. Saw the patient this morning. Tired. Patient's [id number] and niece are present. The latter is the DPOA. Pending endoscopy. Review of systems: Was attempted for constitutional, cardiovascular, GI, pulmonary. relevant finding as above Active Medications Albuterol/Ipratropium (Duoneb 0.5 Mg-3 Mg/3 Ml Soln) 3 ml INHALATION RT-TID [facility] Last Admin: 01/28/20 13:50 Dose: Not Given Documented by: Albuterol/Ipratropium (Duoneb 0.5 Mg-3 Mg/3 Ml Soln) 3 ml INHALATION RT-Q2H PRN PRN Reason: Shortness Of Breath Or Wheezing Last Admin: 01/23/20 23:38 Dose: 3 ml Documented by: Amlodipine Besylate ([facility]vasc) [facility] [place] Admin: 01/28/20 08:06 Dose: 5 mg Documented by: Atorvastatin Calcium (Lipitor) 20 mg PO [facility] Last Admin: 01/27/20 19:51 Dose: 20 mg Documented by: Brimonidine Tartrate (Alphagan P 0.2% Ophth Soln) 1 drops LEFT EYE BID [facility] Last Admin: 01/28/20 08:06 Dose: 1 drops Documented by: Cholecalciferol (Vitamin D3 (25 Mcg = 1000 Iu)) 1,000 unit PO [facility] Last Admin: 01/27/20 19:51 Dose: 1,000 unit Documented by: Dorzolamide HCl (Trusopt) 1 drops LEFT EYE BID [facility] Last Admin: 01/28/20 08:06 Dose: 1 drops Documented by: Fenofibrate (Lofibra) 160 mg PO DAILY [facility] Last Admin: 01/28/20 08:06 Dose: 160 mg Documented by: Finasteride (Proscar) 5 mg PO DAILY [facility] Last Admin: 01/28/20 08:06 Dose: 5 mg Documented by: Sodium Chloride (Saline 0.9%) 1,000 mls @ 75 mls/hr IV .[id number] [facility] Last Admin: 01/28/20 15:02 Dose: Not Given Documented by: Piperacillin Sod/Tazobactam (Sod 3.375 gm/ Sodium Chloride) 100 mls @ 25 mls/hr IVPB Q8HR [facility] Latanoprost (Xalatan 0.005%) 1 drops LEFT EYE HS [facility] Last Admin: 01/27/20 19:51 Dose: 1 drops Documented by: Magnesium Oxide (Mag-Ox) 400 mg PO [facility] Last Admin: 01/27/20 19:50 Dose: 400 mg Documented by: Melatonin (Melatonin) 5 mg PO [facility] Last Admin: 01/27/20 19:50 Dose: 5 mg Documented by: Methylprednisolone Sodium Succinate (Solu-Medrol) 40 mg IV Q8HR [facility] Last Admin: 01/28/20 08:07 Dose: 40 mg Documented by: Miscellaneous Information (Pneumonia Protocol Utilized) 1 each PO ONCE PRN PRN Reason: Per Protocol Multivitamins (Theragran) 1 each PO DAILY [facility] Last Admin: 01/28/20 07:18 Dose: Not Given Documented by: Pantoprazole Sodium (Protonix) 40 mg IVP BID [facility] Last Admin: 01/28/20 08:07 Dose: 40 mg Documented by: Tamsulosin HCl (Flomax) 0.4 mg PO -BRKFST [facility] Last Admin: 01/28/20 08:06 Dose: 0.4 mg Documented by: Physical examination: VITAL SIGNS: 96.9, 109, 18, blood pressure 107/59, 91% on room air GENERAL: Laying in bed, tired EYES: Pupils equal. Conjunctiva normal. HEENT: External appearance of nose and ears normal, oral cavity grossly normal. Hard of hearing NECK: JVD unable to assess; masses not palpable. HEART: First and second heart sounds are normal; no edema. LUNGS: Respiratory rate normal, decreased breaths sounds. ABDOMEN: Soft, nontender, liver spleen not palpable, no masses palpable. PSYCH: Answering simple questions INVESTIGATIONS, reviewed in the clinical context: White count 20.5, hemoglobin 9.3 Previous testing White count 13.6 hemoglobin 14 platelets 304 potassium 6.2 bun 84 creatinine 4.53 calcium 10.3 Patient's creatinine was 2 on December 18 and 2.6 on December 14 EKG tracing personally reviewed by me-normal sinus rhythm Chest x-ray film personally reviewed by me--shows left upper lobe consolidation and also fluid in the fissure and venous prominence. UA positive: Urine culture negative Bronchoscopy-compression of left lingular and lower lobe and paralysis of left vocal cord Assessment: -Compression of left lingular and left lower lobe from extrinsic compression- pulmonary -Acute GI bleed with maroon stools, pending endoscopy -Left vocal cord paralysis -Post obstructive pneumonia suspected -Acute COPD exacerbation in an ex-smoker -Acute metabolic encephalopathy from improved -Chronic kidney disease with a baseline creatinine of 2-2.6 that is stage 3/4 -Acute kidney injury likely ATN from pneumonia, patient is also on lisinopril. -Hyperkalemia in the setting of acute renal improved -BPH -Hyperlipidemia -Essential hypertension -Acute UTI from cystitis Plan: Discussed with patient's [id number] and patient is niece who is the day, POA. Discussed patient's overall clinical status and the lung findings and the pending a biopsy. Options were discussed. She is more inclined to go for conservative course. Rather than any chemotherapy. Leaning towards going to t he ECF. For rehab. This was conveyed to Dr. Arroyo. Total time spent today was about 40 minutes with over 25 minutes of discussion -
[2020-01-28] MEDS: LATANOPROST 0.005% OPHTH DROPS 2.5 ML BTL LEFT EYE SCH (20:36)
[2020-01-28] MEDS: MAGNESIUM OXIDE 400 MG TAB PO SCH (20:37)
[2020-01-28] MEDS: ATORVASTATIN 20 MG TAB PO SCH (20:37)
[2020-01-28] MEDS: CHOLECALCIFEROL 1,000 UNIT TAB PO SCH (20:37)
[2020-01-28] MEDS: MELATONIN 5 MG TABLET PO SCH (20:37)
[2020-01-29] MEDS: methylPREDNISolone SOD SUCCI 40 MG/ML 1 ML VIAL IV SCH ×2 (01:38→07:38)
[2020-01-29] MEDS: PIPERACILLIN-TAZOBACTAM 3.375 GM in SODIUM CHLORIDE 0.9% 100 ML IVPB SCH ×2 (01:38→07:38)
[2020-01-29] MEDS: FENOFIBRATE 160 MG TAB PO SCH (07:37)
[2020-01-29] MEDS: amLODIPine 5 MG TAB PO SCH (07:37)
[2020-01-29] MEDS: TAMSULOSIN 0.4 MG CAP.ER.24H PO SCH (07:37)
[2020-01-29] MEDS: PANTOPRAZOLE 40 MG/10 ML VIAL IVP SCH (07:38)
[2020-01-29] MEDS: MULTIVITAMINS, THERA 1 EACH TAB PO SCH (07:38)
[2020-01-29] MEDS: FINASTERIDE 5 MG TAB PO SCH (07:38)
[2020-01-29] MEDS: SODIUM CHLORIDE 0.9% 1,000 ML IV SCH ×2 (07:46→20:47)
[2020-01-29] MEDS: DORZOLAMIDE HCL 2% DROPS 10 ML BTL LEFT EYE SCH ×2 (07:46→20:44)
[2020-01-29] MEDS: BRIMONIDINE TARTRATE 0.2% DROPS 5 ML BTL LEFT EYE SCH ×2 (07:46→20:44)
[2020-01-29] MEDS: IPRATROPIUM-ALBUTEROL 3 ML NEB INHALATION SCH ×3 (07:55→20:34)
[2020-01-29 10:33] LABS: Basophils % (A) 0 %; Eosinophils % (A) 0 %; HCT 28.8 % (39.0-53.0); HGB 9.6 gm/dL (13.0-17.5); Lymphocytes # (A) 0.6 k/uL (1.0-4.8); Lymphocytes % (A) 3 %; MCH 29.6 pg (25.0-35.0); MCHC 33.4 g/dL (31.0-37.0); MCV 88.7 fL (80.0-100.0); Mean Platelet Volume 7.5; Monocytes # (A) 0.8 k/uL (0-1.0); Monocytes % (A) 3 %; Neutrophils # (A) 21.3 k/uL (1.3-7.7); Neutrophils % (A) 93 %; Platelet Count 309 k/uL (150-450); RBC 3.25 m/uL (4.30-5.90); RDW 12.5 % (11.5-15.5); WBC 22.8 k/uL (3.8-10.6)
--- NOTE | 2020-01-29 12:28 | P.PN ---
Subjective Progress Note Date: 01/29/20 This is a 79-year-old white male, [id number] smoker, quit smoking in 2000. Patient was recently seen by his primary care physician and he was complaining of cough and congestion. He was also complaining of some shortness of breath, fatigue, malaise, he had no symptoms of weight loss. No symptoms of hemoptysis, and no chest pain. Chest x-ray in the office was suggestive of pneumonia involving the lingula, however it was extensive and a CT of the chest was ordered. His CT of the chest Showed significant abnormality in the lingula, suggestive of possible malignancy and postobstructive pneumonitis. Also showed small left pleural effusion, and opacities on the liver suspicious for metastatic disease involving the liver. Patient has mostly chest congestion, voice hoarseness, denies any weight loss, denies any hemoptysis, denies any chest pain, denies any nausea vomiting or abdominal pain. Past medical history is significant for hypercholesterolemia, vitamin D deficiency, coronary arteriosclerosis, benign essential hypertension, COPD, esophageal stricture, bladder cancer in situ treated. PFT showed FEV1 of 42%.Patient is also on updrafts. According to the patient is feeling a bit better, breathing easier. And a follow-up chest x-ray was ordered to be done today. As part of further workup, a PET scan was done that showed a consolidating mass in the left upper lobe measuring 3.7 cm in addition to increased metabolic activity within the axillary areas, hilar areas and multiple hepatic lesions consistent with hepatic metastases. Overall picture is very much consistent with metastatic carcinoma probably of a lung primary. For now, the patient is hoarse. The patient is bronchospastic. The patient is wheezy. The patient shortness of breath. He was being planned that the patient was supposed to have a outpatient fine-needle aspirate of the liver lesion however this did not get done. Currently the patient is being treated as a routine community-acquired pneumonia with a combination of Rocephin and Zithromax. He is a poor historian. He is quite lethargic also. the patient is seen today in 01/25/2020 in follow-up on the regular medical floor. He is currently sitting up in bed. More awake and alert. Denies any worsening shortness of breath. Loose nonproductive cough. No chills or night sweats.maintaining O2 saturations in the 90s on 3 L/m per nasal cannula.blood culture reveals no growth. Urine culture reveals no growth.white count 17.1. Hemoglobin 12.7. Sodium 136. Potassium 6.3. Bicarb 16. Creatinine 2.95.he remains on DuoNeb inhalations,IV Solu-Medrol and Zosyn. The patient is seen today 01/28/2020 in follow-up on the regular medical floor. He did undergo bronchoscopy with biopsies and pathology is pending. He was found to have cytomegalovirus and respiratory syncytial virus. Cultures pending. Today he had undergone colonoscopy with flare polypectomy. He is currently resting comfortably in bed. No significant shortness of breath. Maintaining O2 saturations in the 90s on room air. He is afebrile. Hemodynamically stable. White count 20.5. Hemoglobin 9.3. He remains on Zosyn, bronchodilators, solu- Medrol. On 01/29/2020 the patient is able to sit up on a chair on room air oxygen. Breath sounds are quite diminished on the left. His voice is hoarse. He is able to tolerate diet. He is weak. He is looking for an ECF transferred within next 24 hours. Still awaiting final pathology from the biopsy that was done earlier. He also had a colonoscopy with snare polypectomy. He remains on IV Zosyn. This will be switched to Augmentin at time of discharge. The lavage was obtained from the lungs showed positive findings including RSV and cytomegalovirus. Pathology still pending for now. No hemoptysis. Objective - Vital Signs Vital signs: Vital Signs Temp 96.1 F L 01/29/20 04:57 Pulse 102 H 01/29/20 09:31 Resp 20 01/29/20 09:31 BP 132/68 01/29/20 09:31 Pulse Ox 100 01/29/20 09:31 Intake & Output 01/28/20 01/29/20 01/29/20 18:59 06:59 18:59 Intake Total 900 1190 Output Total 1200 1600 Balance -300 -410 Weight 71.5 kg Intake: IV 300 Intake, IV Titration 600 Amount Sodium Chloride 0.9% 1, 600 000 ml @ 75 mls/hr IV . [id number] [facility] Rx#:[id number] Oral 1190 Output: Urine 1200 1600 Straight 1600 Other: Voiding Method Indwelling Catheter Indwelling Catheter Indwelling Catheter # Bowel Movements 1 1 - Exam GENERAL: BMI 23.3, laying in bed and lethargic but arousable. EYES: Pupils equal. Conjunctiva normal. HEENT: External appearance of nose and ears normal, oral cavity grossly normal. NECK: JVD unable to assess; masses not palpable. HEART: First and second heart sounds are normal; no edema. LUNGS: Respiratory rate increased, decreased breaths on some crackles. The patient has diminished breath sounds and the patient actively bronchospastic and wheezy with diffuse expiratory wheezes throughout the lung nair bilaterally. ABDOMEN: Soft, nontender, liver spleen not palpable, no masses palpable. PSYCH: Lethargic but arousable was able to answer some questionsl. NEUROLOGICAL: [Cranial nerves grossly intact; no facial asymmetry, moving all 4 limbs LYMPHATICS: No lymph nodes palpable in the axilla and neck - Labs CBC & Chem 7: 01/29/20 09:53 01/26/20 06:48 Labs: Abnormal Lab Results - Last 24 Hours (Table) 01/26/20 01/28/20 01/28/20 Range/Units 10:45 06:41 06:41 WBC (3.8-10.6) k/uL RBC (4.30-5.90) m/uL Hgb (13.0-17.5) gm/dL Hct (39.0-53.0) % Neutrophils # (1.3-7.7) k/uL Lymphocytes # (1.0-4.8) k/uL Ferritin 457.0 H (22.0-322.0) ng/mL Vitamin B12 1304.0 H (200.0-944.0) pg/mL RBC Folate 1,305 H (280 - 791) ng/mL Viral Test See Below H 01/29/20 Range/Units 09:53 WBC 22.8 H (3.8-10.6) k/uL RBC 3.25 L (4.30-5.90) m/uL Hgb 9.6 L (13.0-17.5) gm/dL Hct 28.8 L (39.0-53.0) % Neutrophils # 21.3 H (1.3-7.7) k/uL Lymphocytes # 0.6 L (1.0-4.8) k/uL Ferritin (22.0-322.0) ng/mL Vitamin B12 (200.0-944.0) pg/mL RBC Folate (280 - 791) ng/mL Viral Test Microbiology - Last 24 Hours (Table) 01/26/20 10:45 Acid Fast Bacilli Smear - Final Bronchial Washings - Left Acid Fast Bacilli Culture - Preliminary 01/22/20 16:37 Blood Culture - Final Blood No Growth after 144 hours 01/26/20 10:45 Gram Stain - Preliminary Bronchial Washings - Left Bronchial Washings Culture - Preliminary Assessment and Plan Plan: 1 left upper lobe consolidating lung mass, measuring 3.7 cm along with hilar lymphadenopathy, abdominal lymphadenopathy, metastatic liver lesions in addition to axillary lymphadenopathy and the picture is highly suspicious for primary bronchogenic carcinoma. Bronchoscopy was done. Transbronchial biopsy on the left upper lobe was done. Awaiting final pathology. There is narrowing of the various segments of the lingular segment of the left upper lobe and various se gments of the left lower lobe due to lung mass. Final pathologic results are not available yet. 2 acute COPD exacerbation with secondary shortness of breath, consider left lower lobe pneumonia. The patient also has a left-sided pleural effusion that was noted on previous CAT scan and PET scan imaging. Clinically improved and the patient is currently on room air oxygen. He is less short of breath. He COPD exacerbation is improved. 3 severe chronic obstructive pulmonary disease, with a possibility of a postobstructive pneumonia 4 carcinoma of urinary bladder, superficial 5 coronary arteriosclerosis 6 essential hypertension 7 glaucoma 8 hyperlipidemia 9 pure hypercholesterolemia 10 stricture of esophagus 11 left vocal cord paralysis secondary to hilar mass 12 BPH post insertion of a Dong catheter for urinary retention Plan We stop Zosyn Stop IV Solu-Medrol Start the patient oral prednisone Start the patient on oral Augmentin 'll be awaiting the results of the biops from the lungs Patient is quite debilitated and weak. The patient is being considered for ECF for rehabilitation Continue bronchodilators Long-term prognosis poor baseline above-mentioned comorbidities. We'll be awaiting the results of the biopsy
--- NOTE | 2020-01-29 16:18 | P.PN ---
Subjective Progress Note Date: 01/29/20 Principal diagnosis: lung mass In f/u today pt looks better, states he is feeling better, denies nausea, pain, he is SOB with speaking, no hemoptysis or expectoration Objective - Vital Signs Vital signs: Vital Signs Temp 97.2 F L 01/29/20 12:57 Pulse 101 H 01/29/20 13:14 Resp 18 01/29/20 12:57 BP 103/57 01/29/20 12:57 Pulse Ox 93 L 01/29/20 12:57 Intake & Output 01/28/20 01/29/20 01/29/20 18:59 06:59 18:59 Intake Total 900 1190 Output Total 1200 1600 Balance -300 -410 Weight 71.5 kg Intake: IV 300 Intake, IV Titration 600 Amount Sodium Chloride 0.9% 1, 600 000 ml @ 75 mls/hr IV . [id number] [facility] Rx#:[id number] Oral 1190 Output: Urine 1200 1600 Straight 1600 Other: Voiding Method Indwelling Catheter Indwelling Catheter Indwelling Catheter # Bowel Movements 1 1 - Constitutional General appearance: Present: average body habitus, cooperative, no acute distress - EENT Eyes: Present: anicteric sclerae, EOMI ENT: Present: hard of hearing - Respiratory Respiratory: bilateral: diminished (SOB with speaking) - Cardiovascular Heart sounds: normal: S1, S2 - Peripheral edema leg Peripheral Edema: bilateral: None - Gastrointestinal General gastrointestinal: Present: normal bowel sounds, soft - Musculoskeletal Musculoskeletal: Present: generalized weakness - Psychiatric Psychiatric: Present: A&O x's 3, appropriate affect - Labs CBC & Chem 7: 01/29/20 09:53 01/26/20 06:48 Labs: Abnormal Lab Results - Last 24 Hours (Table) 01/28/20 01/28/20 01/29/20 Range/Units 06:41 06:41 09:53 WBC 22.8 H (3.8-10.6) k/uL RBC 3.25 L (4.30-5.90) m/uL Hgb 9.6 L (13.0-17.5) gm/dL Hct 28.8 L (39.0-53.0) % Neutrophils # 21.3 H (1.3-7.7) k/uL Lymphocytes # 0.6 L (1.0-4.8) k/uL Ferritin 457.0 H (22.0-322.0) ng/mL Vitamin B12 1304.0 H (200.0-944.0) pg/mL RBC Folate 1,305 H (280 - 791) ng/mL Microbiology - Last 24 Hours (Table) 01/26/20 10:45 Gram Stain - Final Bronchial Washings - Left Bronchial Washings Culture - Final 01/26/20 10:45 Acid Fast Bacilli Smear - Final Bronchial Washings - Left Acid Fast Bacilli Culture - Preliminary 01/22/20 16:37 Blood Culture - Final Blood No Growth after 144 hours Assessment and Plan (1) Melena Narrative/Plan: GI performed endo, pt still has melena stool, moderate amount, persistent. Transfuse to keep Hgb 7 or greater Current Visit: Yes Status: Acute Priority: High Code(s): K92.1 - MELENA SNOMED Code(s): 8261290 (2) Lung mass Current Visit: Yes Status: Acute Priority: High Code(s): R91.8 - OTHER NONSPECIFIC ABNORMAL FINDING OF LUNG FIELD SNOMED Code(s): 791198435 (3) Liver lesion Current Visit: Yes Status: Acute Priority: High Code(s): K76.9 - LIVER DISEASE, UNSPECIFIED SNOMED Code(s): 530264542 (4) Lymphadenopathy Current Visit: Yes Status: Acute Priority: High Code(s): R59.1 - G ENERALIZED ENLARGED LYMPH NODES SNOMED Code(s): 17019552 (5) Normocytic normochromic anemia Narrative/Plan: Anemia work up most suggestive of anemia of inflammation. No supplement at this time. Due to CKD, possibly epo Current Visit: Yes Status: Acute Priority: High Code(s): D64.9 - ANEMIA, UNSPECIFIED SNOMED Code(s): 70071511 Plan: Pt is s/p bronch and biopsy, endoscopy and biopsy, path pending. Hx of bladder ca Will request staging brain imaging once cr improved.
[2020-01-29] MEDS ORDERED: MAGNESIUM CITRATE 296 ML BOTTLE PO ONE (17:00)
--- NOTE | 2020-01-29 19:47 | PN ---
PROGRESS NOTE DATE OF DICTATION: 01/29/2020 The patient is a 79-year-old pleasant white male admitted to the hospital with acute GI bleed. He was noted to have multiple lesions in the liver with a lung lesion, and he is status post biopsy which is still pending at the time of this dictation. He underwent an esophagogastroduodenoscopy and a colonoscopy because of ongoing GI bleed yesterday that revealed duodenitis and a cecal polyp that was removed endoscopically. Following the procedure, he had three episodes of maroon-colored stools last night and two this morning. Hemoglobin, however, was stable at 9.6 grams/dL. PHYSICAL EXAMINATION: On physical examination, he appears comfortable. No apparent distress. VITAL SIGNS: Vital signs are stable. Blood pressure is 103/57, pulse rate 99, temperature 97.2. HEENT examination unremarkable. Conjunctivae pink. Sclerae icteric. Oral cavity no lesions. NECK: No JVD or lymph node enlargement. CHEST: Clear to auscultation. HEART: Regular rate and rhythm. ABDOMEN: Soft. Bowel sounds are positive. No organomegaly. EXTREMITIES: No pedal edema. NEURO: He is somewhat confused. LABS: Labs from today show hemoglobin 9.6, WBC 22.8, and platelets normal. IMPRESSION: 1. Acute gastrointestinal bleed, status post esophagogastroduodenoscopy and colonoscopy done yesterday that showed duodenitis and a 1-cm ascending colon polyp. The patient continues to have maroon-colored stools and dark-colored stools. Rule out small bowel source of bleeding. 2. Multiple liver lesions and lung lesions, status post biopsies. Pathology still pending. RECOMMENDATIONS: 1. Will proceed with a small bowel capsule endoscopy tomorrow. 2. Clear-liquid diet. 3. Repeat labs in the morning and will follow with you closely. Thank you for this consultation. MMODL / IJN: [id number] /
[2020-01-29] MEDS: ATORVASTATIN 20 MG TAB PO SCH (20:44)
[2020-01-29] MEDS: PANTOPRAZOLE 40 MG TABLET PO SCH (20:44)
[2020-01-29] MEDS: CHOLECALCIFEROL 1,000 UNIT TAB PO SCH (20:44)
[2020-01-29] MEDS: MELATONIN 5 MG TABLET PO SCH (20:44)
[2020-01-29] MEDS: MAGNESIUM OXIDE 400 MG TAB PO SCH (20:44)
[2020-01-29] MEDS: AMOXIC-POT CLAV 875-125MG 1 EACH TAB PO SCH (20:44)
[2020-01-29] MEDS: LATANOPROST 0.005% OPHTH DROPS 2.5 ML BTL LEFT EYE SCH (20:45)
--- NOTE | 2020-01-29 23:52 | P.PN ---
Progress Note - Text Progress Note Date: 01/29/20 Chief Complaint: Short of breath History of presenting complaint: This is a pleasant 79-year-old patient of Dr. gonzalez. Chronic stable medical conditions include hyperlipidemia, bladder cancer. Also recently reported of a liver mass and lung nodule. Patient presented to ER with increasing short of breath. Not eating drinking much. Did not take his medications for about a week. Himself the patient other times not able to give much of a history. Patient is reportedly ex-smoker. Rather lethargic and drowsy but able to answer some questions. No family the bedside. Additionally outpatient workup including computed tomography scan was suggestive of primary lung malignancy with hepatic metastasis Admitted with possible obstructive pneumonia, metabolic encephalopathy, acute kidney injury. Bronchoscopy-compression of left lingular and lower lobe and paralysis of left vocal cord. Also had maroon stools. Drop hemoglobin. Today-. Had further maroon stools this morning. Feeling tired. GI was consulted. Discharge held.. Review of systems: Was attempted for constitutional, cardiovascular, GI, pulmonary. relevant finding as above Active Medications Albuterol/Ipratropium (Duoneb 0.5 Mg-3 Mg/3 Ml Soln) 3 ml INHALATION RT-TID [facility] Last Admin: 01/29/20 20:34 Dose: 3 ml Documented by: Albuterol/Ipratropium (Duoneb 0.5 Mg-3 Mg/3 Ml Soln) 3 ml INHALATION RT-Q2H PRN PRN Reason: Shortness Of Breath Or Wheezing Last Admin: 01/23/20 23:38 Dose: 3 ml Documented by: Amlodipine Besylate (Norvasc) 5 mg PO QAM [facility] Last Admin: 01/29/20 07:37 Dose: 5 mg Documented by: Amoxicillin/Clavulanate Potassium (Augmentin [id number]) 1 each PO Q12HR [facility] Last Admin: 01/29/20 20:44 Dose: 1 each Documented by: Atorvastatin Calcium (Lipitor) 20 mg PO HS [facility] Last Admin: 01/29/20 20:44 Dose: 20 mg Documented by: Brimonidine Tartrate (Alphagan P 0.2% Ophth Soln) 1 drops LEFT EYE BID [facility] Last Admin: 01/29/20 20:44 Dose: 1 drops Documented by: Cholecalciferol (Vitamin D3 (25 Mcg = 1000 Iu)) 1,000 unit PO HS [facility] Last Admin: 01/29/20 20:44 Dose: 1,000 unit Documented by: Dorzolamide HCl (Trusopt) 1 drops LEFT EYE BID [facility] Last Admin: 01/29/20 20:44 Dose: 1 drops Documented by: Fenofibrate (Lofibra) 160 mg PO DAILY [facility] Last Admin: 01/29/20 07:37 Dose: 160 mg Documented by: Finasteride (Proscar) 5 mg PO DAILY [facility] Last Admin: 01/29/20 07:38 Dose: 5 mg Documented by: Sodium Chloride (Saline 0.9%) 1,000 mls @ 75 mls/hr IV .[id number] [facility] Last Admin: 01/29/20 20:47 Dose: 75 mls/hr Documented by: Latanoprost (Xalatan 0.005%) 1 drops LEFT EYE [facility] Last Admin: 01/29/20 20:45 Dose: 1 drops Documented by: Magnesium Oxide (Mag-Ox) 400 mg PO [facility] Last Admin: 01/29/20 20:44 Dose: 400 mg Documented by: Melatonin (Melatonin) 5 mg PO [facility] Last Admin: 01/29/20 20:44 Dose: 5 mg Documented by: Miscellaneous Information (Pneumonia Protocol Utilized) 1 each PO ONCE PRN PRN Reason: Per Protocol Multivitamins (Theragran) 1 each PO DAILY [facility] Last Admin: 01/29/20 07:38 Dose: 1 each Documented by: Pantoprazole Sodium (Protonix) 40 mg PO BID [facility] Last Admin: 01/29/20 20:44 Dose: 40 mg Documented by: Prednisone () 30 mg PO DAILY [facility] Tamsulosin HCl (Flomax) 0.4 mg PO -BRKFST [facility] Last Admin: 01/29/20 07:37 Dose: 0.4 mg Documented by: Physical examination: VITAL SIGNS: 97.2, 99, 18, blood pressure 103/57, 93% on room air GENERAL: Laying in bed, tired EYES: Pupils equal. Conjunctiva normal. HEENT: External appearance of nose and ears normal, oral cavity grossly normal. Hard of hearing NECK: JVD unable to assess; masses not palpable. HEART: First and second heart sounds are normal; no edema. LUNGS: Respiratory rate normal, decreased breaths sounds. ABDOMEN: Soft, nontender, liver spleen not palpable, no masses palpable. PSYCH: Answering simple questions INVESTIGATIONS, reviewed in the clinical context: Hemoglobin 9.6 Previous testing White count 13.6 hemoglobin 14 platelets 304 potassium 6.2 bun 84 creatinine 4.53 calcium 10.3 Patient's creatinine was 2 on December 18 and 2.6 on December 14 EKG tracing personally reviewed by me-normal sinus rhythm Chest x-ray film personally reviewed by me--shows left upper lobe consolidation and also fluid in the fissure and venous prominence. UA positive: Urine culture negative Bronchoscopy-compression of left lingular and lower lobe and paralysis of left vocal cord Assessment: -Compression of left lingular and left lower lobe from extrinsic compression- pulmonary -Acute GI bleed with maroon stools, recurrent, slow to respond -Left vocal cord paralysis -Post obstructive pneumonia suspected -Acute COPD exacerbation in an ex-smoker -Acute metabolic encephalopathy from improved -Chronic kidney disease with a baseline creatinine of 2-2.6 that is stage 3/4 -Acute kidney injury likely ATN from pneumonia, patient is also on lisinopril. -Hyperkalemia in the setting of acute renal improved -BPH -Hyperlipidemia -Essential hypertension -Acute UTI from cystitis Plan: Discussed with the patient. Discussed with the mental health social worker. Discharge has been held. Also spoke to [facility]-physician liaison for [id number] review. Updated. Total of 40 minutes was spent today with over 25 months of discussion. Prognosis guarded. Pathology pending. -
[2020-01-30] MEDS ORDERED: SIMETHICONE 40 MG/0.6 ML DROPS 2,000 MG/30 ML BOTTLE PO ONE (07:30)
[2020-01-30] MEDS: IPRATROPIUM-ALBUTEROL 3 ML NEB INHALATION SCH ×3 (07:49→19:24)
[2020-01-30] MEDS: DORZOLAMIDE HCL 2% DROPS 10 ML BTL LEFT EYE SCH ×2 (08:12→21:28)
[2020-01-30] MEDS: SODIUM CHLORIDE 0.9% 1,000 ML IV SCH ×2 (08:12→21:30)
[2020-01-30] MEDS: BRIMONIDINE TARTRATE 0.2% DROPS 5 ML BTL LEFT EYE SCH ×2 (08:12→21:28)
[2020-01-30 09:46] LABS: Potassium 4.5 mmol/L (3.5-5.1); Total Bilirubin 0.6 mg/dL (0.2-1.3); Total Protein 5.6 g/dL (6.3-8.2)
[2020-01-30 11:36] LABS: HCT 29.8 % (39.0-53.0); HGB 9.5 gm/dL (13.0-17.5); MCH 28.7 pg (25.0-35.0); MCHC 31.9 g/dL (31.0-37.0); MCV 90.2 fL (80.0-100.0); Mean Platelet Volume 7.7; Platelet Count 347 k/uL (150-450); RBC 3.31 m/uL (4.30-5.90); RDW 12.6 % (11.5-15.5); WBC 27.3 k/uL (3.8-10.6)
[2020-01-30] MEDS: MULTIVITAMINS, THERA 1 EACH TAB PO SCH (12:03)
[2020-01-30] MEDS: FINASTERIDE 5 MG TAB PO SCH (12:03)
[2020-01-30] MEDS: PANTOPRAZOLE 40 MG TABLET PO SCH ×2 (12:03→21:29)
[2020-01-30] MEDS: TAMSULOSIN 0.4 MG CAP.ER.24H PO SCH (12:03)
[2020-01-30] MEDS: FENOFIBRATE 160 MG TAB PO SCH (12:03)
[2020-01-30] MEDS: predniSONE 10 MG TAB PO SCH (12:03)
[2020-01-30] MEDS: AMOXIC-POT CLAV 875-125MG 1 EACH TAB PO SCH ×2 (12:03→21:27)
[2020-01-30] MEDS: amLODIPine 5 MG TAB PO SCH (12:03)
--- NOTE | 2020-01-30 16:44 | P.PN ---
Subjective Progress Note Date: 01/30/20 This is a 79-year-old white male, [id number] smoker, quit smoking in 2000. Patient was recently seen by his primary care physician and he was complaining of cough and congestion. He was also complaining of some shortness of breath, fatigue, malaise, he had no symptoms of weight loss. No symptoms of hemoptysis, and no chest pain. Chest x-ray in the office was suggestive of pneumonia involving the lingula, however it was extensive and a CT of the chest was ordered. His CT of the chest Showed significant abnormality in the lingula, suggestive of possible malignancy and postobstructive pneumonitis. Also showed small left pleural effusion, and opacities on the liver suspicious for metastatic disease involving the liver. Patient has mostly chest congestion, voice hoarseness, denies any weight loss, denies any hemoptysis, denies any chest pain, denies any nausea vomiting or abdominal pain. Past medical history is significant for hypercholesterolemia, vitamin D deficiency, coronary arteriosclerosis, benign essential hypertension, COPD, esophageal stricture, bladder cancer in situ treated. PFT showed FEV1 of 42%.Patient is also on updrafts. According to the patient is feeling a bit better, breathing easier. And a follow-up chest x-ray was ordered to be done today. As part of further workup, a PET scan was done that showed a consolidating mass in the left upper lobe measuring 3.7 cm in addition to increased metabolic activity within the axillary areas, hilar areas and multiple hepatic lesions consistent with hepatic metastases. Overall picture is very much consistent with metastatic carcinoma probably of a lung primary. For now, the patient is hoarse. The patient is bronchospastic. The patient is wheezy. The patient shortness of breath. He was being planned that the patient was supposed to have a outpatient fine-needle aspirate of the liver lesion however this did not get done. Currently the patient is being treated as a routine community-acquired pneumonia with a combination of Rocephin and Zithromax. He is a poor historian. He is quite lethargic also. the patient is seen today in 01/25/2020 in follow-up on the regular medical floor. He is currently sitting up in bed. More awake and alert. Denies any worsening shortness of breath. Loose nonproductive cough. No chills or night sweats.maintaining O2 saturations in the 90s on 3 L/m per nasal cannula.blood culture reveals no growth. Urine culture reveals no growth.white count 17.1. Hemoglobin 12.7. Sodium 136. Potassium 6.3. Bicarb 16. Creatinine 2.95.he remains on DuoNeb inhalations,IV Solu-Medrol and Zosyn. The patient is seen today 01/28/2020 in follow-up on the regular medical floor. He did undergo bronchoscopy with biopsies and pathology is pending. He was found to have cytomegalovirus and respiratory syncytial virus. Cultures pending. Today he had undergone colonoscopy with flare polypectomy. He is currently resting comfortably in bed. No significant shortness of breath. Maintaining O2 saturations in the 90s on room air. He is afebrile. Hemodynamically stable. White count 20.5. Hemoglobin 9.3. He remains on Zosyn, bronchodilators, solu- Medrol. On 01/29/2020 the patient is able to sit up on a chair on room air oxygen. Breath sounds are quite diminished on the left. His voice is hoarse. He is able to tolerate diet. He is weak. He is looking for an ECF transferred within next 24 hours. Still awaiting final pathology from the biopsy that was done earlier. He also had a colonoscopy with snare polypectomy. He remains on IV Zosyn. This will be switched to Augmentin at time of discharge. The lavage was obtained from the lungs showed positive findings including RSV and cytomegalovirus. Pathology still pending for now. No hemoptysis. On 01/30/2020 on seeing the patient for a follow-up. Is on room air oxygen. He is in bed all the time. He says very limited exercise capacity. He remains hoarse. He has difficulty with swallowing and he coughs with swallow mechanism. He remains on IV fluid at 75 mL an hour. No fever or chills. He remains on IV Zosyn. The left upper lobe transbronchial biopsy showed squamous cell carcinoma with neuroendocrine features. This is metastatic disease with extensive hepatic involvement. This will be discussed with oncology. Not sure this patient is a candidate for any further treatment and further goals of treatment needs to be established with the family and with oncology.The patient also was evaluated for a GI bleed. He underwent EGD and colonoscopy that revealed duodenitis and a cecal polyp that was removed endoscopically. Following the procedure, yet she episodes of maroon color stool. Hemoglobin for now is stable at 9.5. Objective - Vital Signs Vital signs: Vital Signs Temp 97.1 F L 01/30/20 13:37 Pulse 104 H 01/30/20 13:37 Resp 18 01/30/20 13:37 BP 103/66 01/30/20 13:37 Pulse Ox 92 L 01/30/20 13:37 Intake & Output 01/29/20 01/30/20 01/30/20 18:59 06:59 18:59 Intake Total 1180 600 Balance 1180 600 Intake: Intake, IV Titration 600 Amount Sodium Chloride 0.9% 1, 600 000 ml @ 75 mls/hr IV . [id number] [facility] Rx#:[id number] Oral 1180 Other: Voiding Method Indwelling Catheter Indwelling Catheter Indwelling Catheter # Bowel Movements 1 8 1 - Exam GENERAL: BMI 23.3, laying in bed and lethargic but arousable. EYES: Pupils equal. Conjunctiva normal. HEENT: External appearance of nose and ears normal, oral cavity grossly normal. NECK: JVD unable to assess; masses not palpable. HEART: First and second heart sounds are normal; no edema. LUNGS: Respiratory rate increased, decreased breaths on some crackles. The patient has diminished breath sounds and the patient actively bronchospastic and wheezy with diffuse expiratory wheezes throughout the lung nair bilaterally. ABDOMEN: Soft, nontender, liver spleen not palpable, no masses palpable. PSYCH: Lethargic but arousable was able to answer some questionsl. NEUROLOGICAL: [Cranial nerves grossly intact; no facial asymmetry, moving all 4 limbs LYMPHATICS: No lymph nodes palpable in the axilla and neck - Labs CBC & Chem 7: 01/30/20 09:10 01/30/20 09:10 Labs: Abnormal Lab Results - Last 24 Hours (Table) 01/30/20 01/30/20 Range/Units 09: 09:10 WBC 27.3 H (3.8-10.6) k/uL RBC 3.31 L (4.30-5.90) m/uL Hgb 9.5 L (13.0-17.5) gm/dL Hct 29.8 L (39.0-53.0) % BUN 73 H (9-20) mg/dL Creatinine 2.99 H (0.66-1.25) mg/dL AST 70 H (17-59) U/L Total Protein 5.6 L (6.3-8.2) g/dL Albumin 3.0 L (3.5-5.0) g/dL Microbiology - Last 24 Hours (Table) 01/26/20 10:45 Gram Stain - Final Bronchial Washings - Left Bronchial Washings Culture - Final Assessment and Plan Plan: 1 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 This patient presents with a left upper lobe consolidating lung mass, measuring 3.7 cm along with hilar lymphadenopathy, abdominal lymphadenopathy, metastatic liver lesions in addition to axillary lymphadenopathy and the picture is highly suspicious for primary bronchogenic carcinoma. Bronchoscopy was done. Transbronchial biopsy on the left upper lobe was done. The pathology was consistent with malignancy. There is narrowing of the various segments of the lingular segment of the left upper lobe and various segments of the left lower lobe due to lung mass. 2 acute COPD exacerbation with secondary shortness of breath, consider left lower lobe pneumonia. The patient also has a left-sided pleural effusion that was noted on previous CAT scan and PET scan imaging. Clinically improved and the patient is currently on room air oxygen. He is less short of breath. He COPD exacerbation is improved. 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 Plan Stop IV Zosyn and put the patient on oral Augmentin Start the patient oral prednisone Prognosis extremely poor based on metastatic lung cancer Patient is quite debilitated and weak. The patient is being considered for ECF for rehabilitation Continue bronchodilators Establish CODE STATUS. Oncology follow-up. Consider hospice care.
[2020-01-30] MEDS: ATORVASTATIN 20 MG TAB PO SCH (21:27)
[2020-01-30] MEDS: LATANOPROST 0.005% OPHTH DROPS 2.5 ML BTL LEFT EYE SCH (21:28)
[2020-01-30] MEDS: MELATONIN 5 MG TABLET PO SCH (21:28)
[2020-01-30] MEDS: CHOLECALCIFEROL 1,000 UNIT TAB PO SCH (21:28)
[2020-01-30] MEDS: MAGNESIUM OXIDE 400 MG TAB PO SCH (21:28)
--- NOTE | 2020-01-30 22:04 | PN ---
PROGRESS NOTE DATE OF SERVICE: January 30, 2020 The patient is a white male admitted to the hospital with shortness of breath, fatigue, weakness, weight loss. Chest x-ray showed evidence of pneumonia. Subsequently, CT scan of the chest was suspicious for malignancy. He underwent bronchoscopy with biopsies done which was positive for poorly poorly differentiated squamous cell carcinoma with basaloid features and neuroendocrine differentiation. Dr. Arroyo following the patient closely. During this hospitalization, developed acute GI bleed. He underwent an EGD and colonoscopy by me yesterday that showed evidence of duodenitis, diverticulosis and colon polyps but no active bleeding noted. The patient continued to have intermittent dark colored stools and hence he is scheduled for a small bowel capsule endoscopy, which is being done today. He denies any symptoms. PHYSICAL EXAMINATION: He appears comfortable. No apparent distress. Vital signs stable. Blood pressure 103/66, pulse rate 104, temperature 97.1. HEENT examination unremarkable. Conjunctivae pink. Sclerae anicteric. Oral cavity no lesions. NECK: No JVD or lymph node enlargement. CHEST: Clear to auscultation. HEART: Regular rate and rhythm. ABDOMEN was soft. Mild tenderness in the epigastric area. EXTREMITIES: No pedal edema. NEUROLOGICAL: He is awake, but very slow to respond. LABS: WBC 27.3, hemoglobin 9.5, platelets normal. Basic metabolic panel showed a BUN of 73 and 2.99. IMPRESSION: 1. Acute gastrointestinal bleed, status post EGD and colonoscopy done yesterday which revealed duodenitis and small colon polyp as well as diverticulosis and small bowel capsule endoscopy study is being performed presently. Hemoglobin stable at 9.3 g/dL. 2. Leukocytosis. 3. Poorly differentiated carcinoma with neuroendocrine features noted on recent bronchoscopy with biopsy. Dr. Arroyo following the patient closely. RECOMMENDATIONS: 1. Monitor CBC daily. 2. Advance diet as tolerated. 3. Await small bowel capsule endoscopy results. Will follow with you closely. Thank you for this consultation. MMODL / IJN: [id number] /
--- NOTE | 2020-01-30 23:00 | P.PN ---
Progress Note - Text Progress Note Date: 01/30/20 Chief Complaint: Short of breath History of presenting complaint: This is a pleasant 79-year-old patient of Dr. gonzalez. Chronic stable medical conditions include hyperlipidemia, bladder cancer. Also recently reported of a liver mass and lung nodule. Patient presented to ER with increasing short of breath. Not eating drinking much. Did not take his medications for about a week. Himself the patient other times not able to give much of a history. Patient is reportedly ex-smoker. Rather lethargic and drowsy but able to answer some questions. No family the bedside. Additionally outpatient workup including computed tomography scan was suggestive of primary lung malignancy with hepatic metastasis Admitted with possible obstructive pneumonia, metabolic encephalopathy, acute kidney injury. Bronchoscopy-compression of left lingular and lower lobe and paralysis of left vocal cord. Also had maroon stools. Drop hemoglobin. EGD colonoscopy unremarkable. Again at to stools. Today-. Saw the patient earlier today. Scheduled for small bowel capsule stud y. No further bleeding. Tired. Laying in bed. Review of systems: Was attempted for constitutional, cardiovascular, GI, pulmonary. relevant finding as above Active Medications Albuterol/Ipratropium (Duoneb 0.5 Mg-3 Mg/3 Ml Soln) 3 ml INHALATION RT-TID [facility] Last Admin: 01/30/20 19:24 Dose: 3 ml Documented by: Albuterol/Ipratropium (Duoneb 0.5 Mg-3 Mg/3 Ml Soln) 3 ml INHALATION RT-Q2H PRN PRN Reason: Shortness Of Breath Or Wheezing Last Admin: 01/23/20 23:38 Dose: 3 ml Documented by: Amlodipine Besylate (Norvasc) 5 mg PO QAM [facility] Last Admin: 01/30/20 12:03 Dose: 5 mg Documented by: Amoxicillin/Clavulanate Potassium (Augmentin [id number]) 1 each PO Q12HR [facility] Last Admin: 01/30/20 21:27 Dose: 1 each Documented by: Atorvastatin Calcium (Lipitor) 20 mg PO HS [facility] Last Admin: 01/30/20 21:27 Dose: 20 mg Documented by: Brimonidine Tartrate (Alphagan P 0.2% Ophth Soln) 1 drops LEFT EYE BID [facility] Last Admin: 01/30/20 21:28 Dose: 1 drops Documented by: Cholecalciferol (Vitamin D3 (25 Mcg = 1000 Iu)) 1,000 unit PO HS [facility] Last Admin: 01/30/20 21:28 Dose: 1,000 unit Documented by: Dorzolamide HCl (Trusopt) 1 drops LEFT EYE BID [facility] Last Admin: 01/30/20 21:28 Dose: 1 drops Documented by: Fenofibrate (Lofibra) 160 mg PO DAILY [facility] Last Admin: 01/30/20 12:03 Dose: 160 mg Documented by: Finasteride (Proscar) 5 mg PO DAILY [facility] Last Admin: 01/30/20 12:03 Dose: 5 mg Documented by: Sodium Chloride (Saline 0.9%) 1,000 mls @ 75 mls/hr IV .[id number] [facility] Last Admin: 01/30/20 21:30 Dose: 75 mls/hr Documented by: Latanoprost (Xalatan 0.005%) 1 drops LEFT EYE [facility] Last Admin: 01/30/20 21:28 Dose: 1 drops Documented by: Magnesium Oxide (Mag-Ox) 400 mg PO [facility] Last Admin: 01/30/20 21:28 Dose: 400 mg Documented by: Melatonin (Melatonin) 5 mg PO [facility] Last Admin: 01/30/20 21:28 Dose: 5 mg Documented by: Miscellaneous Information (Pneumonia Protocol Utilized) 1 each PO ONCE PRN PRN Reason: Per Protocol Multivitamins (Theragran) 1 each PO DAILY [facility] Last Admin: 01/30/20 12:03 Dose: 1 each Documented by: Pantoprazole Sodium (Protonix) 40 mg PO BID [facility] Last Admin: 01/30/20 21:29 Dose: 40 mg Documented by: Prednisone () 30 mg PO DAILY [facility] Last Admin: 01/30/20 12:03 Dose: 30 mg Documented by: Tamsulosin HCl (Flomax) 0.4 mg PO -BRKFST [facility] Last Admin: 01/30/20 12:03 Dose: 0.4 mg Documented by: Physical examination: VITAL SIGNS: 97.1, 104, 18, blood pressure 103 was 66, 92% on room air GENERAL: Laying in bed, tired EYES: Pupils equal. Conjunctiva pale HEENT: External appearance of nose and ears normal, oral cavity grossly normal. Hard of hearing NECK: JVD unable to assess; masses not palpable. HEART: First and second heart sounds are normal; no edema. LUNGS: Respiratory rate normal, decreased breaths sounds. ABDOMEN: Soft, nontender, liver spleen not palpable, no masses palpable. PSYCH: Answering simple questions INVESTIGATIONS, reviewed in the clinical context: Hemoglobin 9.5 Previous testing White count 13.6 hemoglobin 14 platelets 304 potassium 6.2 bun 84 creatinine 4.53 calcium 10.3 Patient's creatinine was 2 on December 18 and 2.6 on December 14 EKG tracing personally reviewed by me-normal sinus rhythm Chest x-ray film personally reviewed by me--shows left upper lobe consolidation and also fluid in the fissure and venous prominence. UA positive: Urine culture negative Bronchoscopy-compression of left lingular and lower lobe and paralysis of left vocal cord Lung biopsy results-squamous cell carcinoma Assessment: -Compression of left lingular and left lower lobe from extrinsic biopsy confirming squamous cell carcinoma -Acute GI bleed with maroon stools, recurrent, for capsule study today -Left vocal cord paralysis -Post obstructive pneumonia suspected -Acute COPD exacerbation in an ex-smoker -Acute metabolic encephalopathy from improved -Chronic kidney disease with a baseline creatinine of 2-2.6 that is stage 3/4 -Acute kidney injury likely ATN from pneumonia, patient is also on lisinopril. -Hyperkalemia in the setting of acute renal improved -BPH -Hyperlipidemia -Essential hypertension -Acute UTI from cystitis Plan: Overall prognosis guarded. No further bleeding. Await capsule study. We'll discuss with consultants.
[2020-01-31] MEDS: IPRATROPIUM-ALBUTEROL 3 ML NEB INHALATION PRN (06:08)
[2020-01-31] MEDS: IPRATROPIUM-ALBUTEROL 3 ML NEB INHALATION SCH ×3 (07:43→19:21)
[2020-01-31] MEDS: MULTIVITAMINS, THERA 1 EACH TAB PO SCH (09:11)
[2020-01-31] MEDS: predniSONE 10 MG TAB PO SCH (09:11)
[2020-01-31] MEDS: AMOXIC-POT CLAV 875-125MG 1 EACH TAB PO SCH (09:11)
[2020-01-31] MEDS: TAMSULOSIN 0.4 MG CAP.ER.24H PO SCH (09:11)
[2020-01-31] MEDS: FINASTERIDE 5 MG TAB PO SCH (09:11)
[2020-01-31] MEDS: PANTOPRAZOLE 40 MG TABLET PO SCH ×2 (09:11→20:42)
[2020-01-31] MEDS: amLODIPine 5 MG TAB PO SCH (09:11)
[2020-01-31] MEDS: DORZOLAMIDE HCL 2% DROPS 10 ML BTL LEFT EYE SCH ×2 (09:12→20:43)
[2020-01-31] MEDS: BRIMONIDINE TARTRATE 0.2% DROPS 5 ML BTL LEFT EYE SCH ×2 (09:12→20:43)
[2020-01-31] MEDS: SODIUM CHLORIDE 0.9% 1,000 ML IV SCH (09:13)
[2020-01-31 10:32] LABS: HCT 31.4 % (39.0-53.0); MCH 28.7 pg (25.0-35.0); MCHC 31.9 g/dL (31.0-37.0); MCV 90.1 fL (80.0-100.0); Platelet Count 385 k/uL (150-450); RBC 3.49 m/uL (4.30-5.90); RDW 12.7 % (11.5-15.5); WBC 31.1 k/uL (3.8-10.6)
--- NOTE | 2020-01-31 12:46 | P.PN ---
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 Objective - Vital Signs Vital signs: Vital Signs Temp 97.9 F 01/31/20 11:53 Pulse 105 H 01/31/20 11:53 Resp 30 H 01/31/20 11:53 BP 136/72 01/31/20 11:53 Pulse Ox 97 01/31/20 11:53 Intake & Output 01/30/20 01/31/20 01/31/20 18:59 06:59 18:59 Intake Total 600 Output Total 700 800 Balance -100 -800 Intake: Intake, IV Titration 600 Amount Sodium Chloride 0.9% 1, 600 000 ml @ 75 mls/hr IV . [id number] [facility] Rx#:[id number] Output: Urine 700 800 Other: Voiding Method Indwelling Catheter Indwelling Catheter Indwelling Catheter # Bowel Movements 1 3 - Constitutional General appearance: Present: average body habitus, disheveled, mild distress - EENT Eyes: Present: anicteric sclerae, EOMI ENT: Present: hearing grossly normal - Respiratory Respiratory: bilateral: diminished, other (mildly labored) - Cardiovascular Heart sounds: normal: S1, S2 - Peripheral edema leg Peripheral Edema: bilateral: None - Gastrointestinal General gastrointestinal: Present: normal bowel sounds, soft - Integumentary Integumentary: Present: pale - Neurologic Neurologic: Present: CNII-XII intact - Musculoskeletal Musculoskeletal: Present: strength equal bilaterally - Psychiatric Psychiatric Comment(s): patient is alert, oriented to self only Psychiatric: Absent: appropriate affect, intact judgment & insight - Labs CBC & Chem 7: 01/31/20 10:21 01/30/20 09:10 Labs: Abnormal Lab Results - Last 24 Hours (Table) 01/31/20 Range/Units 10:21 WBC 31.1 H (3.8-10.6) k/uL RBC 3.49 L (4.30-5.90) m/uL Hgb 10.0 L (13.0-17.5) gm/dL Hct 31.4 L (39.0-53.0) % Assessment and Plan (1) Melena Narrative/Plan: GI procedure notes reviewed. Pending path of polyp. Hgb stable. Cont to monitor stool Current Visit: Yes Status: Acute Priority: High Code(s): K92.1 - MELENA SNOMED Code(s): 1700473 (2) Liver lesion Current Visit: Yes Status: Acute Priority: High Code(s): K76.9 - LIVER DISEASE, UNSPECIFIED SNOMED Code(s): 256385562 (3) Lymphadenopathy Current Visit: Yes Status: Acute Priority: High Code(s): R59.1 - G ENERALIZED ENLARGED LYMPH NODES SNOMED Code(s): 95505332 (4) Normocytic normochromic anemia Narrative/Plan: Anemia work up most suggestive of anemia of inflammation. No supplement. Due to CKD, possibly epo if persistent anemia and felt to be r/t kidney disease. 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 Patient does not have family that is nearby, he has a Niece who is power of claims attorney. Nursing is contacting her so that we can plan to have a discussion regarding patient's diagnosis, prognosis, treatment options. Unfortunately, patient's extensive disease and complicated social situation are going to make it very difficult to treat him. Intent of treatment would be for palliation of symptoms and possibly prolongation of life but, patient's current performance status is rather poor. Treatment may prove to only decrease his quality of life. This will all be reviewed with the POA and final plan of care from a Onc standpoint will be communicated in the medical record. MRI brain ordered. If metastatic disease to the brain recommendation will be for hospice. attests: I have preformed history and physical examination of patient, developed impression and plan of care, discussed with dictator. Agree with dictated note, documented as a scribe
[2020-01-31 15:48] VITALS: BMI 24.0
--- NOTE | 2020-01-31 15:52 | P.PN ---
Subjective Progress Note Date: 01/31/20 This is a 79-year-old white male, [id number] smoker, quit smoking in 2000. Patient was recently seen by his primary care physician and he was complaining of cough and congestion. He was also complaining of some shortness of breath, fatigue, malaise, he had no symptoms of weight loss. No symptoms of hemoptysis, and no chest pain. Chest x-ray in the office was suggestive of pneumonia involving the lingula, however it was extensive and a CT of the chest was ordered. His CT of the chest Showed significant abnormality in the lingula, suggestive of possible malignancy and postobstructive pneumonitis. Also showed small left pleural effusion, and opacities on the liver suspicious for metastatic disease involving the liver. Patient has mostly chest congestion, voice hoarseness, denies any weight loss, denies any hemoptysis, denies any chest pain, denies any nausea vomiting or abdominal pain. Past medical history is significant for hypercholesterolemia, vitamin D deficiency, coronary arteriosclerosis, benign essential hypertension, COPD, esophageal stricture, bladder cancer in situ treated. PFT showed FEV1 of 42%.Patient is also on updrafts. According to the patient is feeling a bit better, breathing easier. And a follow-up chest x-ray was ordered to be done today. As part of further workup, a PET scan was done that showed a consolidating mass in the left upper lobe measuring 3.7 cm in addition to increased metabolic activity within the axillary areas, hilar areas and multiple hepatic lesions consistent with hepatic metastases. Overall picture is very much consistent with metastatic carcinoma probably of a lung primary. For now, the patient is hoarse. The patient is bronchospastic. The patient is wheezy. The patient shortness of breath. He was being planned that the patient was supposed to have a outpatient fine-needle aspirate of the liver lesion however this did not get done. Currently the patient is being treated as a routine community-acquired pneumonia with a combination of Rocephin and Zithromax. He is a poor historian. He is quite lethargic also. the patient is seen today in 01/25/2020 in follow-up on the regular medical floor. He is currently sitting up in bed. More awake and alert. Denies any worsening shortness of breath. Loose nonproductive cough. No chills or night sweats.maintaining O2 saturations in the 90s on 3 L/m per nasal cannula.blood culture reveals no growth. Urine culture reveals no growth.white count 17.1. Hemoglobin 12.7. Sodium 136. Potassium 6.3. Bicarb 16. Creatinine 2.95.he remains on DuoNeb inhalations,IV Solu-Medrol and Zosyn. The patient is seen today 01/28/2020 in follow-up on the regular medical floor. He did undergo bronchoscopy with biopsies and pathology is pending. He was found to have cytomegalovirus and respiratory syncytial virus. Cultures pending. Today he had undergone colonoscopy with flare polypectomy. He is currently resting comfortably in bed. No significant shortness of breath. Maintaining O2 saturations in the 90s on room air. He is afebrile. Hemodynamically stable. White count 20.5. Hemoglobin 9.3. He remains on Zosyn, bronchodilators, solu- Medrol. On 01/29/2020 the patient is able to sit up on a chair on room air oxygen. Breath sounds are quite diminished on the left. His voice is hoarse. He is able to tolerate diet. He is weak. He is looking for an ECF transferred within next 24 hours. Still awaiting final pathology from the biopsy that was done earlier. He also had a colonoscopy with snare polypectomy. He remains on IV Zosyn. This will be switched to Augmentin at time of discharge. The lavage was obtained from the lungs showed positive findings including RSV and cytomegalovirus. Pathology still pending for now. No hemoptysis. On 01/30/2020 on seeing the patient for a follow-up. Is on room air oxygen. He is in bed all the time. He says very limited exercise capacity. He remains hoarse. He has difficulty with swallowing and he coughs with swallow mechanism. He remains on IV fluid at 75 mL an hour. No fever or chills. He remains on IV Zosyn. The left upper lobe transbronchial biopsy showed squamous cell carcinoma with neuroendocrine features. This is metastatic disease with extensive hepatic involvement. This will be discussed with oncology. Not sure this patient is a candidate for any further treatment and further goals of treatment needs to be established with the family and with oncology.The patient also was evaluated for a GI bleed. He underwent EGD and colonoscopy that revealed duodenitis and a cecal polyp that was removed endoscopically. Following the procedure, yet she episodes of maroon color stool. Hemoglobin for now is stable at 9.5. On 01/31/2020, the patient's overall condition is probably slightly worse. He is laying down in bed. Does not do much of an activity. His speech is hard to understand that the patient has significant vocal cord paralysis. He also has some shortness of breath at rest. He continues to decline in terms of health and nutrition. I do not think that he'll be a good candidate for any form of treatment in terms of his metastatic lung cancer. I made recommendations for hospice and further discussions are to be done with oncology and the patient family. Objective - Vital Signs Vital signs: Vital Signs Temp 97.9 F 01/31/20 11:53 Pulse 100 01/31/20 13:47 Resp 18 01/31/20 13:47 BP 136/72 01/31/20 11:53 Pulse Ox 97 01/31/20 11:53 Intake & Output 01/30/20 01/31/20 01/31/20 18:59 06:59 18:59 Intake Total 600 600 Output Total 700 800 Balance -100 -800 600 Weight 73.8 kg Intake: Intake, IV Titration 600 600 Amount IV Fluid Continuation 1, 600 000 ml @ 0 mls/hr IV .[facility] Rx#:[id number] Sodium Chloride 0.9% 1, 600 000 ml @ 75 mls/hr IV . [id number] Rx#:[id number] Output: Urine 700 800 Other: Voiding Method Indwelling Catheter Indwelling Catheter Indwelling Catheter # Bowel Movements 1 3 - Exam GENERAL: BMI 23.3, laying in bed and lethargic but arousable. EYES: Pupils equal. Conjunctiva normal. HEENT: External appearance of nose and ears normal, oral cavity grossly normal. NECK: JVD unable to assess; masses not palpable. HEART: First and second heart sounds are normal; no edema. LUNGS: Respiratory rate increased, decreased breaths on some crackles. The patient has diminished breath sounds and the patient actively bronchospastic and wheezy with diffuse expiratory wheezes throughout the lung nair bilaterally. ABDOMEN: Soft, nontender, liver spleen not palpable, no masses palpable. PSYCH: Lethargic but arousable was able to answer some questionsl. NEUROLOGICAL: [Cranial nerves grossly intact; no facial asymmetry, moving all 4 limbs LYMPHATICS: No lymph nodes palpable in the axilla and neck - Labs CBC & Chem 7: 01/31/20 10:21 01/30/20 09:10 Labs: Abnormal Lab Results - Last 24 Hours (Table) 01/31/20 Range/Units 10:21 WBC 31.1 H (3.8-10.6) k/uL RBC 3.49 L (4.30-5.90) m/uL Hgb 10.0 L (13.0-17.5) gm/dL Hct 31.4 L (39.0-53.0) % Assessment and Plan Plan: 1 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 This patient presents with a left upper lobe consolidating lung mass, measuring 3.7 cm along with hilar lymphadenopathy, abdominal lymphadenopathy, metastatic liver lesions in addition to axillary lymphade nopathy and the picture is highly suspicious for primary bronchogenic carcinoma. Bronchoscopy was done. Transbronchial biopsy on the left upper lobe was done. The pathology was consistent with malignancy. There is narrowing of the various segments of the lingular segment of the left upper lobe and various segments of the left lower lobe due to lung mass. 2 acute COPD exacerbation with secondary shortness of breath, consider left lower lobe pneumonia. The patient also has a left-sided pleural effusion that was noted on previous CAT scan and PET scan imaging. Clinically improved and the patient is currently on room air oxygen. He is less short of breath. He COPD exacerbation is improved. 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 Plan Very poor performance and functional status in a patient with metastatic lung cancer with extensive hepatic involvement, vocal cord paralysis, large tumor obstructing the left upper lobe and volume loss involving the left lung. Recommend hospice I plan is for the POA to meet with oncology to discuss treatment options and plan. Mild recommendations will be DNR/DNI and possibly hospice
[2020-01-31] MEDS: MELATONIN 5 MG TABLET PO SCH (20:40)
[2020-01-31] MEDS: LATANOPROST 0.005% OPHTH DROPS 2.5 ML BTL LEFT EYE SCH (20:41)
[2020-01-31] MEDS: CHOLECALCIFEROL 1,000 UNIT TAB PO SCH (20:42)
[2020-01-31] MEDS: ATORVASTATIN 20 MG TAB PO SCH (20:42)
[2020-01-31] MEDS: MAGNESIUM OXIDE 400 MG TAB PO SCH (20:42)
[2020-01-31] MEDS: AMOXIC-POT CLAV 500-125 MG 1 EACH TAB PO SCH (20:43)
--- NOTE | 2020-01-31 21:48 | P.PN ---
Progress Note - Text Progress Note Date: 01/31/20 Chief Complaint: Short of breath History of presenting complaint: This is a pleasant 79-year-old patient of Dr. gonzalez. Chronic stable medical conditions include hyperlipidemia, bladder cancer. Also recently reported of a liver mass and lung nodule. Patient presented to ER with increasing short of breath. Not eating drinking much. Did not take his medications for about a week. Himself the patient other times not able to give much of a history. Patient is reportedly ex-smoker. Rather lethargic and drowsy but able to answer some questions. No family the bedside. Additionally outpatient workup including computed tomography scan was suggestive of primary lung malignancy with hepatic metastasis Admitted with possible obstructive pneumonia, metabolic encephalopathy, acute kidney injury. Bronchoscopy-compression of left lingular and lower lobe and paralysis of left vocal cord. Also had maroon stools. Drop hemoglobin. EGD colonoscopy unremarkable. pathology compacting squamous cell carcinoma. Today-. tired. Laying in bed. capsuleStudy Came Back Negative. Patient not eating Review of systems: Was attempted for constitutional, cardiovascular, GI, pulmonary. relevant finding as above Active Medications Albuterol/Ipratropium (Duoneb 0.5 Mg-3 Mg/3 Ml Soln) 3 ml INHALATION RT-TID [facility] Last Admin: 01/31/20 19:21 Dose: 3 ml Documented by: Albuterol/Ipratropium (Duoneb 0.5 Mg-3 Mg/3 Ml Soln) 3 ml INHALATION RT-Q2H PRN PRN Reason: Shortness Of Breath Or Wheezing Last Admin: 01/31/20 06:08 Dose: 3 ml Documented by: Amlodipine Besylate (Norvasc) 5 mg PO QAM [facility] Last Admin: 01/31/20 09:11 Dose: 5 mg Documented by: Amoxicillin/Clavulanate Potassium (Augmentin 500-125 Mg) 1 each PO Q12HR [facility] Last Admin: 01/31/20 20:43 Dose: 1 each Documented by: Atorvastatin Calcium (Lipitor) 20 mg PO HS [facility] Last Admin: 01/31/20 20:42 Dose: 20 mg Documented by: Brimonidine Tartrate (Alphagan P 0.2% Ophth Soln) 1 drops LEFT EYE BID [facility] Last Admin: 01/31/20 20:43 Dose: 1 drops Documented by: Cholecalciferol (Vitamin D3 (25 Mcg = 1000 Iu)) 1,000 unit PO HS [facility] Last Admin: 01/31/20 20:42 Dose: 1,000 unit Documented by: Dorzolamide HCl (Trusopt) 1 drops LEFT EYE BID [facility] Last Admin: 01/31/20 20:43 Dose: 1 drops Documented by: Fenofibrate (Lofibra) 160 mg PO DAILY [facility] Last Admin: 01/30/20 12:03 Dose: 160 mg Documented by: Finasteride (Proscar) 5 mg PO DAILY [facility] Last Admin: 01/31/20 09:11 Dose: 5 mg Documented by: Sodium Chloride (Saline 0.9%) 1,000 mls @ 75 mls/hr IV .[id number] [facility] Last Admin: 01/31/20 09:13 Dose: 75 mls/hr Documented by: Latanoprost (Xalatan 0.005%) 1 drops LEFT EYE [facility] Last Admin: 01/31/20 20:41 Dose: 1 drops Documented by: Magnesium Oxide (Mag-Ox) 400 mg PO [facility] Last Admin: 01/31/20 20:42 Dose: 400 mg Documented by: Melatonin (Melatonin) 5 mg PO [facility] Last Admin: 01/31/20 20:40 Dose: 5 mg Documented by: Miscellaneous Information (Pneumonia Protocol Utilized) 1 each PO ONCE PRN PRN Reason: Per Protocol Multivitamins (Theragran) 1 each PO DAILY [facility] Last Admin: 01/31/20 09:11 Dose: 1 each Documented by: Pantoprazole Sodium (Protonix) 40 mg PO BID [facility] Last Admin: 01/31/20 20:42 Dose: 40 mg Documented by: Prednisone () 30 mg PO DAILY [facility] Last Admin: 01/31/20 09:11 Dose: 30 mg Documented by: Tamsulosin HCl (Flomax) 0.4 mg PO -BRKFST [facility] Last Admin: 01/31/20 09:11 Dose: 0.4 mg Documented by: Physical examination: VITAL SIGNS:97.9, 105, 20, blood pressure 136/72, 97% on 2 L GENERAL: Laying in bed, tired EYES: Pupils equal. Conjunctiva pale HEENT: External appearance of nose and ears normal, oral cavity grossly normal. Hard of hearing NECK: JVD unable to assess; masses not palpable. HEART: First and second heart sounds are normal; no edema. LUNGS: Respiratory rate normal, decreased breaths sounds. ABDOMEN: Soft, nontender, liver spleen not palpable, no masses palpable. PSYCH: Answering simple questions INVESTIGATIONS, reviewed in the clinical context: hemoglobin 10 Previous testing White count 13.6 hemoglobin 14 platelets 304 potassium 6.2 bun 84 creatinine 4.53 calcium 10.3 Patient's creatinine was 2 on December 18 and 2.6 on December 14 EKG tracing personally reviewed by me-normal sinus rhythm Chest x-ray film personally reviewed by me--shows left upper lobe consolidation and also fluid in the fissure and venous prominence. UA positive: Urine culture negative Bronchoscopy-compression of left lingular and lower lobe and paralysis of left vocal cord Lung biopsy results-squamous cell carcinoma Assessment: -Compression of left lingular and left lower lobe from extrinsic biopsy confirming squamous cell carcinoma -Acute GI bleed with maroon stools, recurrent, for capsule study today -Left vocal cord paralysis -Post obstructive pneumonia suspected -Acute COPD exacerbation in an ex-smoker -Acute metabolic encephalopathy from improved -Chronic kidney disease with a baseline creatinine of 2-2.6 that is stage 3/4 -Acute kidney injury likely ATN from pneumonia, patient is also on lisinopril. -Hyperkalemia in the setting of acute renal improved -BPH -Hyperlipidemia -Essential hypertension -Acute UTI from cystitis Plan: spoke to patient's [id number] over the phone. Patient is niece is out of town attending to the family member the hospital. Did reach out to the forensic social worker. Planning to get the patient discharged. Oncology will talk to the family. Prognosis remains guarded.
--- NOTE | 2020-01-31 23:41 | PN ---
PROGRESS NOTE DATE OF SERVICE: 01/31/2020 The patient is a 79-year-old white male admitted to the hospital with shortness of breath and cough. Underwent bronchoscopy with biopsy and diagnosed with 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 In the meantime, he was having active GI bleed. Hence, he underwent EGD and colonoscopy followed by small bowel capsule endoscopy in the last 2 days. Upper endoscopy revealed duodenitis. Colonoscopy revealed colon polyps and small bowel capsule endoscopy done yesterday did not show any evidence of active bleeding. In the meantime, the patient is doing well and he did not have any further evidence of bleeding. Hemoglobin stable at 10 g/dL. PHYSICAL EXAMINATION: He appears comfortable. No apparent distress. VITAL SIGNS: Stable. Blood pressure 133/86, pulse rate 82 per minute. HEENT: Unremarkable. Conjunctivae pink. Sclerae anicteric. Oral cavity, no lesions. NECK: No JVD or thyroid enlargement. CHEST: Clear to auscultation. HEART: Regular rate and rhythm. Decreased breath sounds bilaterally. ABDOMEN: Soft. Bowel sounds are positive. No organomegaly. EXTREMITIES: No pedal edema. NEURO: He is slightly slow to answer questions, but more awake today. LABS: From today hemoglobin 10, platelets 385, WBC 31.1. IMPRESSION: 1. Acute gastrointestinal bleed. He had an EGD/colonoscopy 2 days ago that showed duodenitis and colon polyp. Small bowel capsule endoscopy done yesterday did not show any evidence of active bleeding. Currently the bleeding has resolved and hemoglobin remains stable. 2. Metastatic squamous cell carcinoma of the left upper lobe of the lung with neuroendocrine features. Dr. Arroyo following the patient closely and oncology has been consulted. 3. History of chronic obstructive pulmonary disease with exacerbation. RECOMMENDATION: 1. At this time will monitor ( ). 2. Continue with symptomatic supportive care. 3. At this time we will sign off. Please call us if needed. Thank you for this consultation. MMODL / IJN: [id number] /
[2020-02-01] MEDS: IPRATROPIUM-ALBUTEROL 3 ML NEB INHALATION PRN (05:22)
[2020-02-01] MEDS: SODIUM CHLORIDE 0.9% 1,000 ML IV SCH (05:32)
[2020-02-01] MEDS: TAMSULOSIN 0.4 MG CAP.ER.24H PO SCH (08:27)
[2020-02-01] MEDS: MULTIVITAMINS, THERA 1 EACH TAB PO SCH (08:27)
[2020-02-01] MEDS: amLODIPine 5 MG TAB PO SCH (08:27)
[2020-02-01] MEDS: predniSONE 10 MG TAB PO SCH (08:27)
[2020-02-01] MEDS: FENOFIBRATE 160 MG TAB PO SCH ×2 (08:27→08:28)
[2020-02-01] MEDS: FINASTERIDE 5 MG TAB PO SCH (08:28)
[2020-02-01] MEDS: PANTOPRAZOLE 40 MG TABLET PO SCH (08:28)
[2020-02-01] MEDS: DORZOLAMIDE HCL 2% DROPS 10 ML BTL LEFT EYE SCH (08:29)
[2020-02-01] MEDS: BRIMONIDINE TARTRATE 0.2% DROPS 5 ML BTL LEFT EYE SCH (08:29)
[2020-02-01] MEDS: AMOXIC-POT CLAV 500-125 MG 1 EACH TAB PO SCH (08:29)
[2020-02-01] MEDS: IPRATROPIUM-ALBUTEROL 3 ML NEB INHALATION SCH ×2 (09:38→11:44)
[2020-02-01 11:26] VITALS: BP 112/70; RESP 28; TEMP 98
[2020-02-01 11:56] VITALS: PULSE 100
--- NOTE | 2020-02-01 13:14 | P.PN ---
Subjective Progress Note Date: 02/01/20 On 02/01/2020 patient is seen in follow-up. He is resting in bed, slightly more somnolent today, but arousable, answering simple questions. Mild to moderate dyspnea at rest, some scattered wheezes, but no acute distress, he is 93% on 3 L, hemodynamically stable, afebrile. No acute events overnight. Patient is on amoxicillin, oral prednisone, and breathing treatments, meeting is scheduled for today between oncology and the [facility] in treatment options. Objective - Vital Signs Vital signs: Vital Signs Temp 98 F 02/01/20 11:25 Pulse 100 02/01/20 11:55 Resp 28 H 02/01/20 11:25 BP 112/70 02/01/20 11:25 Pulse Ox 93 L 02/01/20 11:25 Intake & Output 01/31/20 02/01/20 02/01/20 18:59 06:59 18:59 Intake Total 600 Output Total 1000 2 Balance -400 -2 Weight 73.8 kg 73.8 kg Intake: Intake, IV Titration 600 Amount IV Fluid Continuation 1, 600 000 ml @ 0 mls/hr IV .[employer] ONE Rx#:[id number] Output: Urine 1000 Stool 2 Other: Voiding Method Indwelling Catheter Indwelling Catheter Indwelling Catheter - Exam GENERAL EXAM: Alert, active, comfortable in no apparent distress. HEAD: Normocephalic/atraumatic. EYES: Normal reaction of pupils, equal size. Conjunctiva pink, sclera white. NOSE: Clear with pink turbinates. THROAT: No erythema or exudates. NECK: No masses, no JVD, no thyroid enlargement, no adenopathy. CHEST: No chest wall deformity. Symmetrical expansion. LUNGS: Equal air entry with no crackles, wheeze, rhonchi or dullness. CVS: Regular rate and rhythm, normal S1 and S2, no gallops, no murmurs, no rubs ABDOMEN: Soft, nontender. No hepatosplenomegaly, normal bowel sounds, no guarding or rigidity. EXTREMITIES: No clubbing, no edema, no cyanosis, 2+ pulses and upper and lower extremities. MUSCULOSKELETAL: Muscle strength and tone normal. SPINE: No scoliosis or deformity SKIN: No rashes CENTRAL NERVOUS SYSTEM: Alert and oriented -3. No focal deficits, tone is normal in all 4 extremities. PSYCHIATRIC: Alert and oriented -3. Appropriate affect. Intact judgment and i nsight. 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 This patient presents with a left upper lobe consolidating lung mass, measuring 3.7 cm along with hilar lymphadenopathy, abdominal lymphadenopathy, metastatic liver lesions in addition to axillary lymphadenopathy and the picture is highly suspicious for primary bronchogenic carcinoma. Bronchoscopy was done. Transbronchial biopsy on the left upper lobe was done. The pathology was consistent with malignancy. There is narrowing of the various segments of the lingular segment of the left upper lobe and various segments of the left lower lobe due to lung mass. 2 acute COPD exacerbation with secondary shortness of breath, consider left lower lobe pneumonia. The patient also has a left-sided pleural effusion that was noted on previous CAT scan and PET scan imaging. Clinically improved and the patient is currently on room air oxygen. He is less short of breath. He COPD exacerbation is improved. 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 Plan: No acute issues overnight, vital signs are stable, patient is mildly short of breath, but maintained stable saturations on 3 L, continue with antibiotics, prednisone, breathing treatments. 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 The plan is for discharge to [facility] today. Pulmonary service will sign off and follow on an as-needed basis I performed a history & physical examination of the patient and discussed their management with my nurse practitioner, Chandni German. I reviewed the nurse practitioner's note and agree with the documented findings and plan of care. Lung sounds are positive for diminished breath sounds. The findings and the impression was discussed with the patient. I attest to the documentation by the nurse practitioner. Time with Patient: Less than 30
--- NOTE | 2020-02-01 14:59 | P.DS ---
Providers Date of admission: 01/22/20 16:08 Expected date of discharge: 02/01/20 Attending physician: Roc Cunningham Consults: 01/22/20 16:08 Consult Physician Routine Consulting Provider: Ajit Ruelas Consult Reason/Comments: Pneumonia, COPD Do you want consulting provider notified?: Yes 01/26/20 20:12 Consult Physician Routine Consulting Provider: Alfredo Gomez Consult Reason/Comments: diarrhea; black liquid stools Do you want consulting provider notified?: Yes 01/26/20 20:15 Consult Physician Routine Consulting Provider: Isai Deluca Consult Reason/Comments: retention; bladder cancer Do you want consulting provider notified?: Yes 01/27/20 13:51 Consult Physician Routine Consulting Provider: Steven Daniels Consult Reason/Comments: Lung CA Do you want consulting provider notified?: Yes Primary care physician: Epifanio Watt [facility] Course: Chief Complaint: Short of breath History of presenting complaint: This is a pleasant 79-year-old patient of Dr. watt. Chronic stable medical conditions include hyperlipidemia, bladder cancer. Also recently reported of a liver mass and lung nodule. Patient presented to ER with increasing short of breath. Not eating drinking much. Did not take his medications for about a week. Himself the patient other times not able to give much of a history. Patient is reportedly ex-smoker. Rather lethargic and drowsy but able to answer some questions. No family the bedside. Additionally outpatient workup including computed tomography scan was suggestive of primary lung malignancy with hepatic metastasis Admitted with possible obstructive pneumonia, metabolic encephalopathy, acute kidney injury. Bronchoscopy-compression of left lingular and lower lobe and paralysis of left vocal cord. Also had maroon stools. Drop hemoglobin. EGD colonoscopy unremarkable. pathology - squamous cell carcinoma. Small bowel capsule study-negative Today-.continues to feel weak. Poor oral intake. Spoke to the brother in law. Prognosis guarded. Depending on his clinical course we will follow with oncology team. If he deteriorates further then hospice would be appropriate. Patient niece is the POA Consultation: Dr. michelle and associates from pulmonary Dr. Redmond from GI Dr. Schroeder from urology Dr. Daniels from oncology Physical examination: VITAL SIGNS: 98, 101, 28, hemoglobin 12/70, 93% on 2 L GENERAL: Laying in bed, tired EYES: Pupils equal. Conjunctiva pale HEENT: External appearance of nose and ears normal, oral cavity grossly normal. Hard of hearing NECK: JVD unable to assess; masses not palpable. HEART: First and second heart sounds are normal; no edema. LUNGS: Respiratory rate increased, decreased breaths sounds. ABDOMEN: Soft, nontender, liver spleen not palpable, no masses palpable. PSYCH: Answering simple questions INVESTIGATIONS, reviewed in the clinical context: hemoglobin 10 Albumin 3 Previous testing White count 13.6 hemoglobin 14 platelets 304 potassium 6.2 bun 84 creatinine 4.53 calcium 10.3 Patient's creatinine was 2 on December 18 and 2.6 on December 14 EKG tracing personally reviewed by me-normal sinus rhythm Chest x-ray film personally reviewed by me--shows left upper lobe consolidation and also fluid in the fissure and venous prominence. UA positive: Urine culture negative Bronchoscopy-compression of left lingular and lower lobe and paralysis of left vocal cord Lung biopsy results-squamous cell carcinoma Assessment: -Compression of left lingular and left lower lobe from extrinsic biopsy confirming squamous cell carcinoma -Acute GI bleed with maroon stools, recurrent, for capsule study today -Left vocal cord paralysis -Post obstructive pneumonia suspected -Acute COPD exacerbation in an ex-smoker -Acute metabolic encephalopathy from improved -Chronic kidney disease with a baseline creatinine of 2-2.6 that is stage 3/4 -Acute kidney injury likely ATN from pneumonia, patient is also on lisinopril. -Hyperkalemia in the setting of acute renal improved -BPH -Hyperlipidemia -Essential hypertension -Acute UTI from cystitis -Mild protein calorie malnutrition [facility] Condition at Discharge: Poor Plan - Discharge Summary New Discharge Prescriptions: New Ipratropium-Albuterol Nebulize [Duoneb 0.5 mg-3 mg/3 ml Soln] 3 ml INHALATION RT-TID ml Tamsulosin [Flomax] 0.4 mg PO PC-BRKFST cap.er.24h predniSONE 30 mg PO DAILY #1 tab Pantoprazole [Protonix] 40 mg PO BID tablet.dr Continue Melatonin 5 mg PO HS amLODIPine [Norvasc] 5 mg PO QAM Fenofibrate Nanocrystallized [Tricor] 160 mg PO DAILY Finasteride [Proscar] 5 mg PO DAILY Atorvastatin [Lipitor] 20 mg PO HS Magnesium 250 mg PO HS Dorzolamide HCl/Pf [Dorzolamide 2% Eye Drop] 1 drop LEFT EYE BID Latanoprost [Xalatan 0.005%] 1 drop LEFT EYE HS Brimonidine Tartrate [Alphagan P 0.2% Ophth Soln] 1 drops LEFT EYE BID Multivitamins, Thera [Multivitamin (formulary)] 1 tab PO DAILY Discontinued Lisinopril-Hctz 20-12.5 mg [Zestoretic 20-12.5] 1 tab PO QAM Aspirin 325 mg PO HS Cholecalciferol [Vitamin D3 (25 Mcg = 1000 Iu)] 1,000 unit PO HS Ibuprofen/Diphenhydramine HCl [Advil Pm Liqui-Gels] 1 cap PO HS Discharge Medication List Atorvastatin [Lipitor] 20 mg PO HS 01/16/20 [History] Fenofibrate Nanocrystallized [Tricor] 160 mg PO DAILY 01/16/20 [History] Finasteride [Proscar] 5 mg PO DAILY 01/16/20 [History] Magnesium 250 mg PO HS 01/16/20 [History] Melatonin 5 mg PO HS 01/16/20 [History] amLODIPine [Norvasc] 5 mg PO QAM 01/16/20 [History] Dorzolamide HCl/Pf [Dorzolamide 2% Eye Drop] 1 drop LEFT EYE BID 01/21/20 [Histo ry] Brimonidine Tartrate [Alphagan P 0.2% Ophth Soln] 1 drops LEFT EYE BID 01/22/20 [History] Latanoprost [Xalatan 0.005%] 1 drop LEFT EYE HS 01/22/20 [History] Multivitamins, Thera [Multivitamin (formulary)] 1 tab PO DAILY 01/22/20 [History] Ipratropium-Albuterol Nebulize [Duoneb 0.5 mg-3 mg/3 ml Soln] 3 ml INHALATION RT-TID ml 01/31/20 [Rx] Pantoprazole [Protonix] 40 mg PO BID tablet. 01/31/20 [Rx] Tamsulosin [Flomax] 0.4 mg PO PC-BRKFST cap.er.24h 01/31/20 [Rx] predniSONE 30 mg PO DAILY #1 tab 01/31/20 [Rx] Follow up Appointment(s)/Referral(s): Tarun Landa MD [STAFF PHYSICIAN] - 1-2 Days Epifanio Watt MD [Primary Care Provider] - As Needed
--- NOTE | 2020-02-06 08:03 | CDI ---
Documentation Clarification Form Date: 02/06/20 From: Jhoana Barber Phone: If you have a question about this query, please contact Chiquita Colindres, Chain Sales Representative at [phone] between 8am and 5pm. Admit Date: 01/22/20 Discharge Date: 02/01/20 Patient Name: HERI TOLBERT Visit Number: [id number] ATTENTION: The Clinical Documentation Specialists (CDI) and [facility] Coding Staff appreciate your assistance in clarifying documentation. Please respond to the clarification below the line at the bottom and electronically sign. The CDI & [facility] Coding staff will review the response and follow-up if needed. Please note: Queries are made part of the Legal Health Record. If you have any questions, please contact the author of this message via ITS. Dear Dr. Jay Jay Arroyo, Documentation in the Operative Report included: Flexible bronchoscopy, chest bronchodilators of left upper lobe, bronchioalveolar lavage of the left upper lobe. The bronchoscope was removed to the lingular segment of the left upper lobe with has bronchial biopsies were obtained. Multiple biopsies were done under fluoroscopic guidance. History/Risk factors: PNA, ATN, AECOPD, mets to liver, HTN w CKD stage 3, Pre-Operative Diagnosis: JULIETTE mass, postobstructive pneumonia Postoperative Diagnosis: Paralysis of left vocal cord, narrowing of lingular bronchus w extrinsic compression and possible endobronchial tumor involvement, narrowing of LLL bronchus along w various segments mainly anterior and lateral segments Clinical Indicators: 01/26 PN you document transbronchial biopsy In order to capture the severity of condition, please specify the type of lung biopsy: Bronchoscopy with lung biopsy Bronchoscopy with transbronchial lung biopsy Both of the above procedures were performed Unable to determine Bronchoscopy with transbronchial lung biopsy MTDD
--- NOTE | 2020-02-06 08:20 | CDI ---
Documentation Clarification Form Date: 02/06/20 From: Jhoana Barber Phone: If you have a question about this query, please contact Chiquita Colindres, Truckman at [phone] between 8am and 5pm. Admit Date: 01/22/20 Discharge Date: 02/01/20 Patient Name: HERI TOLBERT Visit Number: [id number] ATTENTION: The Clinical Documentation Specialists (CDI) and [facility] Coding Staff appreciate your assistance in clarifying documentation. Please respond to the clarification below the line at the bottom and electronically sign. The CDI & [facility] Coding staff will review the response and follow-up if needed. Please note: Queries are made part of the Legal Health Record. If you have any questions, please contact the author of this message via ITS. Dear Dr. Roc Cunningham, The final diagnosis of the pathology report states: ASCENDING COLON POLYP: Well differentiated neuroendocrine tumor involving the full thickness of the mucosa and involving submucosal fat. 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 Documentation states: Colonoscopy revealed 2.5 cm broad-based ascending colon polyp s/p polypectomy and scattered sigmoidal diverticulosis. 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 Yes No Other (please specify) Unable to determine Yes MTDD
--- NOTE | 2020-02-06 08:37 | CDI ---
Documentation Clarification Form Date: 02/06/20 From: Jhoana Barber Phone: If you have a question about this query, please contact Chiquita Colindres, Bag Shop Worker at [phone] between 8am and 5pm. Admit Date: 01/22/20 Discharge Date: 02/01/20 Patient Name: HERI TOLBERT Visit Number: [id number] ATTENTION: The Clinical Documentation Specialists (CDI) and [facility] Coding Staff appreciate your assistance in clarifying documentation. Please respond to the clarification below the line at the bottom and electronically sign. The CDI & [facility] Coding staff will review the response and follow-up if needed. Please note: Queries are made part of the Legal Health Record. If you have any questions, please contact the author of this message via ITS. Dear Dr. Roc Cunningham, Conflicting documentation has been found in the medical record: ED Note, H&P and your PNs on 01/26 & 01/24 state left upper lobe lobar pneumonia suspect gram-negative organism. Dr Arroyo states CT showed possible malignancy and postobstructive pneumonitis in 01/26 PN. Bronch washings revealed cytomegalovirus and respiratory synctial virus. History/Risk Factors: ATN, AECOPD, mets to liver, HTN w CKD stage 3, hx bladder ca Treatment: IV antibiotics (Rocephin, Zithromax, Zoysn, IV Solu-medrol, Pneumonia protocal, neubizers, In your opinion, what is the most clinically appropriate diagnosis for this patient? Gram-negative pneumonia Post-obstructive pneumonia Community acquired pneumonia Pneumonia due to cytomegalovirus Pneumonia due to respiratory synctial virus Other explanation of clinical findings Unable to determine (no explanation for clinical findings) Possible gram-negative pneumonia MTDD
--- NOTE | 2020-02-06 08:44 | CDI ---
Documentation Clarification Form Date: 02/06/20 From: Jhoana Barber Phone: If you have a question about this query, please contact Chiquita Colindres, Meat Packer at [phone] between 8am and 5pm. Admit Date: 01/22/20 Discharge Date: 02/01/20 Patient Name: HERI TOLBERT Visit Number: [id number] ATTENTION: The Clinical Documentation Specialists (CDI) and [facility] Coding Staff appreciate your assistance in clarifying documentation. Please respond to the clarification below the line at the bottom and electronically sign. The CDI & [facility] Coding staff will review the response and follow-up if needed. Please note: Queries are made part of the Legal Health Record. If you have any questions, please contact the author of this message via ITS. Dear Dr. Jay Jay Arroyo, Documentation in the Operative Report included: Flexible bronchoscopy, chest bronchodilators of left upper lobe, bronchioalveolar lavage of the left upper lobe. The bronchoscope was removed to the lingular segment of the left upper lobe with has bronchial biopsies were obtained. Multiple biopsies were done under fluoroscopic guidance. History/Risk factors: PNA, ATN, AECOPD, mets to liver, HTN w CKD stage 3, Pre-Operative Diagnosis: JULIETTE mass, postobstructive pneumonia Postoperative Diagnosis: Paralysis of left vocal cord, narrowing of lingular bronchus w extrinsic compression and possible endobronchial tumor involvement, narrowing of LLL bronchus along w various segments maily anterior and lateral segments Clinical Indicators: 01/26 PN you document transbronchial biopsy In order to capture the severity of condition, please specify the type of lung biopsy: Bronchoscopy with lung biopsy Bronchoscopy with transbronchial lung biopsy Both of the above procedures were performed Unable to determine Bronchoscopy with transbronchial lung biopsy MTDD
== END 2020-02-01 17:10 | DRG 177 ==
LOC: EC 12:24 → 5NMEDONC 16:08
PROVIDERS: ADMIT Hospitalist; ATTEND Hospitalist
PROC: 0BDG8ZX Extraction of Left Upper Lung Lobe, Via Natural or Artificial Opening Endoscopic, Diagnostic (ICD-10-PCS; principal; 2020-01-26 10:00)
PROC: 0B9G8ZX Drainage of Left Upper Lung Lobe, Via Natural or Artificial Opening Endoscopic, Diagnostic (ICD-10-PCS; principal; 2020-01-26 10:00)
PROC: 0DBK8ZX Excision of Ascending Colon, Via Natural or Artificial Opening Endoscopic, Diagnostic (ICD-10-PCS; 2020-01-28 08:10)
PROC: 0DJ08ZZ Inspection of Upper Intestinal Tract, Via Natural or Artificial Opening Endoscopic (ICD-10-PCS; 2020-01-28 08:10)
PROC: 0DJ07ZZ Inspection of Upper Intestinal Tract, Via Natural or Artificial Opening (ICD-10-PCS; 2020-01-30)
DX: J15.6 Pneumonia due to other Gram-negative bacteria (principal); N17.0 Acute kidney failure with tubular necrosis; G93.41 Metabolic encephalopathy; J44.0 Chronic obstructive pulmonary disease with (acute) lower respiratory infection; J44.1 Chronic obstructive pulmonary disease with (acute) exacerbation; C78.7 Secondary malignant neoplasm of liver and intrahepatic bile duct; D62 Acute posthemorrhagic anemia; E44.1 Mild protein-calorie malnutrition; J90 Pleural effusion, not elsewhere classified; C34.12 Malignant neoplasm of upper lobe, left bronchus or lung; C7A.022 Malignant carcinoid tumor of the ascending colon; K92.1 Melena; B25.9 Cytomegaloviral disease, unspecified; J38.01 Paralysis of vocal cords and larynx, unilateral; K22.2 Esophageal obstruction; N30.90 Cystitis, unspecified without hematuria; B97.4 Respiratory syncytial virus as the cause of diseases classified elsewhere; N18.3 Chronic kidney disease, stage 3 (moderate); I12.9 Hypertensive chronic kidney disease with stage 1 through stage 4 chronic kidney disease, or unspecified chronic kidney disease; E27.9 Disorder of adrenal gland, unspecified; E86.0 Dehydration; R59.0 Localized enlarged lymph nodes; I25.10 Atherosclerotic heart disease of native coronary artery without angina pectoris; K44.9 Diaphragmatic hernia without obstruction or gangrene; K29.80 Duodenitis without bleeding; K57.30 Diverticulosis of large intestine without perforation or abscess without bleeding; K63.5 Polyp of colon; E78.5 Hyperlipidemia, unspecified; E78.00 Pure hypercholesterolemia, unspecified; E87.5 Hyperkalemia; N40.1 Benign prostatic hyperplasia with lower urinary tract symptoms; R33.8 Other retention of urine; E55.9 Vitamin D deficiency, unspecified; H40.9 Unspecified glaucoma; H91.90 Unspecified hearing loss, unspecified ear; Z79.82 Long term (current) use of aspirin; Z79.899 Other long term (current) drug therapy; Z85.51 Personal history of malignant neoplasm of bladder; Z87.891 Personal history of nicotine dependence; Z87.01 Personal history of pneumonia (recurrent)
CPT/HCPCS: 31624; 31628; 36415; 43235; 45385; 71046; 80048; 80053; 81001; 82607; 82728; 82747; 83540; 83550; 83605; 83735; 83880; 84484; 85025; 85027; 85610; 85730; 87040; 87070; 87086; 87102; 87116; 87205; 87206; 87252; 87496; 87498; 87502; 87529; 87634; 87798; 88108; 88305; 88341; 88342; 91110; 93005; 94640; 94760; 96361; 96374; 99291